=== PATIENT | male | born 1930 | race Caucasian/White ===

== ENCOUNTER 2017-07-29 17:22 | Inpatient (IN) | payer OTHER ==
--- NOTE | 2017-07-29 17:49 | PDOC ---
History of Present Illness - General Chief Complaint: Weakness Stated Complaint: FATIGUE Time Seen by Provider: 07/29/17 17:48 - History of Present Illness Initial Comments: 07/29/17 17:54 Mr. Real is an 87 yo male w/ pmh of HTN, DM, HLD, and diastolic CHF who presents w/ 1-2 days of shortness of breath with cough and runny nose. Patient is also complaining of abdominal pain over this same time period and chronic back pain. The patient denies headache and dizziness. Denies fever, chills, nausea, vomit, diarrhea and constipation. Denies dysuria, frequency, urgency and hematuria. Allergies: NKDA Past History - Past Medical History Allergies/Adverse Reactions: Allergies Allergy/AdvReac Type Severity Reaction Status Date / Time No Known Allergies Allergy Verified 07/29/17 17:33 Home Medications: Ambulatory Orders Glipizide/Metformin HCl [Glipizide-Metformin 5-500 mg] 2 each PO BIDAC 09/06/15 Nortriptyline HCl 50 mg PO HS 09/06/15 Omeprazole [Prilosec] 40 mg PO DAILY 09/06/15 Pregabalin [Lyrica -] 75 mg PO TID 09/06/15 Sitagliptin Phosphate [Januvia] 100 mg PO AM 09/06/15 Chlorthalidone 50 mg PO DAILY 07/29/17 Donepezil HCl [Aricept] 10 mg PO DAILY 07/29/17 COPD: No Diabetes: Yes HTN: Yes Hypercholesterolemia: Yes - Immunization History Immunization Up to Date: Yes - Suicide/Smoking/Psychosocial Hx Smoking History: Former smoker Have you smoked in the past 12 months: No If you are a former smoker, when did you quit?: over 20 years ago Information on smoking cessation initiated: No Hx Alcohol Use: No Drug/Substance Use Hx: No Substance Use Type: None Hx Substance Use Treatment: No Review of Systems - Review of Systems Comments:: 07/29/17 17:57 GENERAL/CONSTITUTIONAL: No fever or chills. No weakness. HEAD, EYES, EARS, NOSE AND THROAT: No change in vision. No ear pain or discharge. No sore throat. CARDIOVASCULAR: +Dyspnea on exertion as described. No chest pain RESPIRATORY: No cough, wheezing, or hemoptysis. GASTROINTESTINAL: +Abdominal pain starting in left upper quadrant over the last 1-2 days. No nausea, vomiting, diarrhea or constipation. GENITOURINARY: No dysuria, frequency, or change in urination. MUSCULOSKELETAL: No joint or muscle swelling or pain. No neck or back pain. SKIN: No rash NEUROLOGIC: No headache, vertigo, loss of consciousness, or change in strength/ sensation. ENDOCRINE: No increased thirst. No abnormal weight change HEMATOLOGIC/LYMPHATIC: No anemia, easy bleeding, or history of blood clots. ALLERGIC/IMMUNOLOGIC: No hives or skin allergy. *Physical Exam - Vital Signs Last Vital Signs Temp Pulse Resp BP Pulse Ox 107 H 19 152/89 98 07/29/17 17:33 07/29/17 17:33 07/29/17 17:33 07/29/17 17:33 - Physical Exam Comments: 07/29/17 17:58 GENERAL: Awake, alert, and fully oriented, in no acute distress HEAD: No signs of trauma, normocephalic, atraumatic EYES: PERRLA, EOMI, sclera anicteric, conjunctiva clear ENT: Auricles normal inspection, hearing grossly normal, nares patent, oropharynx clear without exudates. Moist mucosa NECK: Normal ROM, supple, no lymphadenopathy, JVD, or masses LUNGS: No distress, speaks full sentences, clear to auscultation bilaterally HEART: Regular rate and rhythm, normal S1 and S2, no murmurs, rubs or gallops, peripheral pulses normal and equal bilaterally. ABDOMEN: Soft, nontender, normoactive bowel sounds. No guarding, no rebound. No masses EXTREMITIES: 1+ Pedal edema noted bilaterally. Normal inspection, Normal range of motion, no edema. No clubbing or cyanosis. NEUROLOGICAL: Cranial nerves II through XII grossly intact. Normal speech, normal gait, no focal sensorimotor deficits SKIN: Warm, Dry, normal turgor, no rashes or lesions noted. ED Treatment Course - LABORATORY CBC & Chemistry Diagram: 07/29/17 18:20 07/29/17 18:20 Medical Decision Making - Medical Decision Making 07/29/17 20:37 Mr. Real is an 87 yo male w/ pmh as described who presents w/ increasing shortness of breath with pedal edema. CBC/CMP/cardiac panel/ekg/CXR sent for evaluation. 07/29/17 20:43 Patient noted to have elevated troponin on labs as below. CXR appears congested. BNP sent for further evaluation and found to be elevated as shown. Suspect etiology of patient's symptoms due to fluid overload. Paging inpatient team for overnight observation with morning cardiology consult. 07/29/17 21:[address] Sullivan of inpatient team who agrees with overnight admission for observation and cardiology follow-up. *DC/Admit/Observation/Transfer Diagnosis at time of Disposition: CHF (congestive heart failure) Qualifiers: Heart failure type: unspecified Heart failure chronicity: unspecified Qualified Code(s): I50.9 - Heart failure, unspecified Fluid overload Qualifiers: Hypervolemia type: unspecified Qualified Code(s): E87.70 - Fluid overload, unspecified - Discharge Dispostion Admit: Yes - Referrals Referrals: Kayla Rothman MD [Primary Care Provider] - - Patient Instructions - Post Discharge Activity
--- NOTE | 2017-07-29 18:14 | PDOC ---
Attending Attestation - ED Attending Attestation I have performed the following: I have examined & evaluated the patient, The case was reviewed & discussed with the resident, I agree w/resident's findings & plan, Exceptions are as noted - HPI HPI: 07/29/17 18:14 Mr Real is an 87 yo M h/o HTN, DM, HLD, diastolic CHF presenting to the ER with a complaint of shortness of breath Per family member, the patient was short of breath x 4 days No fevers, no cough, no URI symptoms Pt noted to have mild lower extremity edema Unsure if this patient has orthopnea His exercise tolerance is limited a few minutes of walking Most recent travel in April to [place] Pt has not had chest pain When he is very short of breath, he gets left abdominal pain which radiates up his chest 07/29/17 20:24 07/29/17 20:30 - Physicial Exam PE: 07/29/17 20:29 On examination Pt is seated in stretcher No tachypnea, no cyanosis, speaking in complete sentences RRR CTA bilaterally abdomen protruberant, non tender to palpation 1+ pitting edema bilaterally - Medical Decision Making 07/29/17 20:30 87 yo M with DM, HTN, HLD, CHF presenting to the ER with shortness of breath No fevers or cough to suggest pneumonia No wheezing, h/o COPD Pt has mild lower extremity edema Possibly CHF 07/29/17 20:31 07/29/17 20:32 Laboratory Tests 07/29/17 07/29/17 07/29/17 18:20 18:20 19:45 WBC 7.1 D Hgb 11.3 L Hct 35.0 L Plt Count 198 BUN 28 H D Creatinine 1.4 H AST 85 H D ALT 79 H D Alkaline Phosphatase 164 H D Creatine Kinase 201 Creatine Kinase Index 2.8 CK-MB (CK-2) 5.641 H Troponin I 0.06 H D B-Natriuretic Peptide 97938.17 H BNP elevated Unclear cause of pt mild transaminitis Trop indeterminant range No anemia Will place on observation to hospitalist will give Lasix for fluid overloading Clinical impression: CHF, initial presentation
[2017-07-29 18:32] LABS: BASO % 0.9 % (0-2.0); EOS % 1.5 % (0-4.5); HEMOGLOBIN 11.3 GM/dL (11.7-16.9); LYMPH % 13.4 % (8-40); MCH 27.8 pg (25.7-33.7); MCHC 32.3 g/dl (32.0-35.9); MEAN CELL VOLUME 86.3 fl (80-96); MEAN PLT VOLUME 9.1 fl (7.5-11.1); MONO % 12.6 % (3.8-10.2); NEUT % 71.6 % (42.8-82.8); PLATELET COUNT 198 K/MM3 (134-434); RBC 4.06 M/mm3 (4.00-5.60); RDW 16.3 % (11.9-15.9); WHITE BLOOD COUNT 7.1 K/mm3 (4.0-10.0)
[2017-07-29 19:26] LABS: ALBUMIN 3.7 g/dl (3.4-5.0); ANION GAP 14 (8-16); BILIRUBIN,TOTAL 0.9 mg/dL (0.2-1.0); BLOOD UREA NITROGEN 28 mg/dL (7-18); CALCIUM 8.9 mg/dL (8.5-10.1); CHLORIDE 105 mmol/L (98-107); CO2 22 mmol/L (21-32); CREATININE 1.4 mg/dL (0.7-1.3); GLUCOSE,RANDOM 171 mg/dL (74-106); POTASSIUM 4.6 mmol/L (3.5-5.1); SGOT/AST 85 U/L (15-37); SGPT/ALT 79 U/L (12-78); SODIUM 141 mmol/L (136-145); TOT PROT 7.3 g/dl (6.4-8.2)
[2017-07-29 19:28] LABS: ALK PHOS 164 U/L (45-117)
[2017-07-29] MEDS ORDERED: LISINOPRIL 20 MG TABLET (FP) PO ONE (20:30)
[2017-07-29] MEDS ORDERED: LISINOPRIL 20 MG TABLET (FP) ONE (20:40)
[2017-07-29] MEDS ORDERED: FUROSEMIDE 40 MG TABLET (FP) PO ONE (20:42)
[2017-07-29] MEDS ORDERED: FUROSEMIDE 40 MG TABLET (FP) ONE (20:45)
[2017-07-29] MEDS ORDERED: ACETAMINOPHEN 325 MG TABLET (FP) PO PRN (21:55)
[2017-07-29] MEDS ORDERED: NORTRIPTYLINE HCL 25 MG CAPSULE PO SCH (22:00)
--- NOTE | 2017-07-29 22:18 | HP ---
CHIEF COMPLAINT: SOB PCP: Higinio HISTORY OF PRESENT ILLNESS: 87M w/ hx of diastolic CHF, HTN, NIDDM, and HLD who presents with several days of SOB. Pt reports that he was in his USOH until several days ago when his SOB began. It is associated with increased PRUITT, PND, worsening b/l LE edema, but no orthopnea. Pt endorses preceding rhinorrhea, unproductive cough, and chills, but denies fevers, headache, chest pain, abdominal pain, n/v/d/c, dysuria, myalgias, and sick contacts. Pt travelled to in April. He reports medication compliance, and his helps him with his medications. At baseline, pt ambulates with walker and cane. He can only walk 10-20 feet before becoming SOB. ER course was notable for: (1) elevated LFTs (2) elevated BNP (3) bibasilar rales Recent Travel: in april PAST MEDICAL HISTORY: diastolic CHF, HTN, NIDDM, and HLD PAST SURGICAL HISTORY: denies Social History: Smoking: former, quit 25 ya Alcohol: denies Drugs: denies Family History: Allergies No Known Allergies Allergy (Verified 07/29/17 17:33) HOME MEDICATIONS: Home Medications Medication Instructions Recorded Glipizide/Metformin HCl 2 each PO BIDAC 09/06/15 [Glipizide-Metformin 5-500 mg] Nortriptyline HCl 50 mg PO HS 09/06/15 Omeprazole [Prilosec] 40 mg PO DAILY 09/06/15 Pregabalin [Lyrica -] 75 mg PO TID 09/06/15 Sitagliptin Phosphate [Januvia] 100 mg PO AM 09/06/15 Chlorthalidone 50 mg PO DAILY 07/29/17 Donepezil HCl [Aricept] 10 mg PO DAILY 07/29/17 REVIEW OF SYSTEMS CONSTITUTIONAL: Absent: fever, diaphoresis, generalized weakness, malaise, loss of appetite, weight change present: chills HEENT: Absent: nasal congestion, throat pain, throat swelling, difficulty swallowing, mouth swelling, ear pain, eye pain, visual changes present: rhinorrhea CARDIOVASCULAR: Absent: chest pain, syncope, palpitations, irregular heart rate, lightheadedness present: peripheral edema RESPIRATORY: Absent: wheezing, stridor, hemoptysis present: cough, SOB, PRUITT GASTROINTESTINAL: Absent: abdominal pain, abdominal distension, nausea, vomiting, diarrhea, constipation, melena, hematochezia GENITOURINARY: Absent: dysuria, frequency, urgency, hesitancy, hematuria, flank pain, genital pain MUSCULOSKELETAL: Absent: myalgia, arthralgia, joint swelling, neck pain present: back pain chronic SKIN: Absent: rash, itching, pallor HEMATOLOGIC/IMMUNOLOGIC: Absent: easy bleeding, easy bruising, lymphadenopathy, frequent infections ENDOCRINE: Absent: unexplained weight gain, unexplained weight loss, heat intolerance, cold intolerance NEUROLOGIC: Absent: headache, focal weakness or paresthesias, dizziness, unsteady gait, seizure, mental status changes, bladder or bowel incontinence PSYCHIATRIC: Absent: anxiety, depression, suicidal or homicidal ideation, hallucinations. PHYSICAL EXAMINATION Vital Signs - 24 hr 07/29/17 07/29/17 17:33 20:22 Temperature 98.9 F Pulse Rate 107 H Pulse Rate [ 112 H Radial] Respiratory 19 19 Rate Blood Pressure 152/89 Blood Pressure 148/90 [Arm] O2 Sat by Pulse 98 99 Oximetry (%) GENERAL: elderly male, awake, alert, and fully oriented, in no acute distress. HEENT: NC, AT LUNGS: bibasilar rales, no rhonchi or wheezing HEART: Regular rate and rhythm, normal S1 and S2 without murmur, rub or gallop. ABDOMEN: soft, NT, ND MUSCULOSKELETAL: b/l 2+ pitting edema to knees NEUROLOGICAL: Cranial nerves II-XII intact. Normal speech. Laboratory Results - last 24 hr 07/29/17 07/29/17 07/29/17 18:20 18:20 19:45 WBC 7.1 D RBC 4.06 Hgb 11.3 L Hct 35.0 L MCV 86.3 MCH 27.8 MCHC 32.3 RDW 16.3 H Plt Count 198 MPV 9.1 Neutrophils % 71.6 Lymphocytes % 13.4 Monocytes % 12.6 H Eosinophils % 1.5 Basophils % 0.9 Sodium 141 Potassium 4.6 Chloride 105 Carbon Dioxide 22 Anion Gap 14 BUN 28 H D Creatinine 1.4 H Creat Clearance w eGFR 47.72 Random Glucose 171 H D Calcium 8.9 Total Bilirubin 0.9 D AST 85 H D ALT 79 H D Alkaline Phosphatase 164 H D Creatine Kinase 201 Creatine Kinase Index 2.8 CK-MB (CK-2) 5.641 H Troponin I 0.06 H D B-Natriuretic Peptide 78563.17 H Total Protein 7.3 Albumin 3.7 ASSESSMENT/PLAN: 87M w/ hx of diastolic CHF, HTN, NIDDM, and HLD who presents with acute SOB. #SOB -likely 2/2 acute CHF exacerbation possibly triggered by viral URI. 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 CKD -f/u repeat trops #HTN -continue chlorthalidone #HLD -reconcile meds alesia #DM -hold home oral hypoglycemics -ISS, BGM ACHS #dementia -continue donepezil #chronic back pain -APAP for pain #FEN/ppx -po fluids -electrolytes wnl -diabetic/sodium controlled diet -protonix -heparin 5000U TID Case discussed with attending. -Mason Vera MD PGY1 Visit type - Emergency Visit Emergency Visit: Yes ED Registration Date: 07/29/17 Care time: The patient presented to the Emergency Department on the above date and was hospitalized for further evaluation of their emergent condition. - New Patient This patient is new to me today: Yes Date on this admission: 07/29/17 - Critical Care Critical Care patient: No Hospitalist Screening - Colonoscopy Questionnaire Colonoscopy Questionnaire: Colonoscopy Questionnaire - Patient: 50 - 75 years old and never had a screening colonoscopy: Unknown History of colon or rectal polyps, or CA: Unknown History of IBD, Crohn's disease or UC: Unknown History of abdominal radiation therapy as a child: Unknown - Relative: 1 with colon or rectal CA, or polyps at age 60 or younger: Unknown Colon or rectal CA diagnosed at age 45 or younger: Unknown Multiple relatives with colon or rectal CA: Unknown - Outcome: Screening Result: Negative Screen
[2017-07-29] MEDS: PREGABALIN 75 MG CAPSULE PO SCH (23:26)
--- NOTE | 2017-07-29 23:28 | PN ---
Teaching Attending Note Name of Resident: Mason Vera ATTENDING PHYSICIAN STATEMENT I saw and evaluated the patient. I reviewed the resident's note and discussed the case with the resident. I agree with the resident's findings and plan as documented. SUBJECTIVE: 87M pmh HTN HLD diastolic HF, mod-severe AI, presents with worsening SOB and leg swelling for past 4 days, OBJECTIVE: bibasilar rales tachycardia nom/r/g Ext: 1+ edema BNP 13K trop 0.06 last ECHO 08/2015 nl EF mod-sev AI Nuclear stress 08/2015 negative CX pulm vasc congestion EKG sinus rhythm nonspecific twi ASSESSMENT AND PLAN: 87M presents with decompensated heart failure trend troponin to evaluate for ACS rpeat ECHO to eval changes in LV function or AI IV lasix 40q12 start ACEI initaite BB prior to discharge cardiology consult
[2017-07-30 01:51] VITALS: BMI 30.5
[2017-07-30] MEDS: PREGABALIN 75 MG CAPSULE PO SCH ×3 (05:54→23:04)
[2017-07-30] MEDS ORDERED: HEPARIN NA (PORCINE) 5,000 UNITS/ML 1ML VIAL SQ SCH (06:00)
[2017-07-30] MEDS ORDERED: FUROSEMIDE 40 MG/4 ML INJECTABLE VIAL IVPUSH SCH (06:00)
[2017-07-30] MEDS: INSULIN SLIDING SCALE (NOVOLOG) 1 VIAL SQ SCH ×5 (06:06→23:02)
[2017-07-30 08:17] LABS: BASO % 0.6 % (0-2.0); EOS % 0.5 % (0-4.5); HEMATOCRIT 33.7 % (35.4-49); LYMPH % 11.9 % (8-40); MCHC 32.6 g/dl (32.0-35.9); MEAN CELL VOLUME 85.9 fl (80-96); MEAN PLT VOLUME 9.2 fl (7.5-11.1); MONO % 11.1 % (3.8-10.2); NEUT % 75.9 % (42.8-82.8); PLATELET COUNT 186 K/MM3 (134-434); RBC 3.93 M/mm3 (4.00-5.60); RDW 16.1 % (11.9-15.9)
[2017-07-30 08:26] LABS: CREATININE 1.6 mg/dL (0.7-1.3)
[2017-07-30 08:57] LABS: ALBUMIN 3.5 g/dl (3.4-5.0); ANION GAP 19 (8-16); BILIRUBIN,TOTAL 1.5 mg/dL (0.2-1.0); BLOOD UREA NITROGEN 29 mg/dL (7-18); CALCIUM 9.7 mg/dL (8.5-10.1); CHLORIDE 100 mmol/L (98-107); CO2 21 mmol/L (21-32); GLUCOSE,RANDOM 182 mg/dL (74-106); MAGNESIUM 1.4 mg/dL (1.8-2.4); PHOSPHOROUS 4.7 mg/dL (2.5-4.9); POTASSIUM 4.3 mmol/L (3.5-5.1); SODIUM 140 mmol/L (136-145); TOT PROT 7.2 g/dl (6.4-8.2)
[2017-07-30 08:58] LABS: ALK PHOS 213 U/L (45-117)
[2017-07-30 08:59] LABS: SGOT/AST 526 U/L (15-37); SGPT/ALT 473 U/L (12-78)
[2017-07-30] MEDS ORDERED: FUROSEMIDE 40 MG TABLET (FP) PO SCH (10:00)
[2017-07-30] MEDS ORDERED: PANTOPRAZOLE 40 MG TABLET (FP) PO SCH (10:00)
[2017-07-30] MEDS ORDERED: CHLORTHALIDONE 50 MG TABLET PO SCH (10:00)
[2017-07-30] MEDS ORDERED: DONEPEZIL HCL 10 MG TABLET (FP) PO SCH (10:00)
[2017-07-30 10:54] LABS: INR 1.74 (0.82-1.09); PROTHROMBIN TIME (PATIENT) 19.7 SEC (9.98-11.88)
[2017-07-30] MEDS ORDERED: hydrALAZINE HCL 20 MG/ML VIAL IVPUSH PRN (13:04)
[2017-07-30] MEDS ORDERED: MAGNESIUM SULF 50% (8.12 MEQ/2 ML-1 GM VIAL) IVPB ONE (13:34)
--- NOTE | 2017-07-30 13:41 | CON.CARD ---
Consult Consult Specialty:: Cardiology Referred by:: Hospitalist Reason for Consultation:: SOB - History of Present Illness Chief Complaint: SOB History of Present Illness: 87 year old man with a history of HTN, HLD, DMII, AR, CKD, Chronic diastolic CHF , admitted here 2016 with sob and diastolic CHF, stress test at that time showed no ischemia, admitted now for progressively worsening sob, edema. Pt seen and examined today in nad. states that for the past few days he has had progressivley worsening sob, also notes b/l LE edema. denies chest pain. - History Source History Provided By: Patient, Family Member Limitations to Obtaining History: Language Barrier - Past Medical History Cardio/Vascular: Yes: Aortic Insufficiency, CHF, HTN, Hyperlipdemia Endocrine: Yes: Diabetes Mellitus - Alcohol/Substance Use Hx Alcohol Use: No - Smoking History Smoking history: Former smoker Have you smoked in the past 12 months: No If you are a former smoker, when did you quit?: over 20 years ago - Social History Usual Living Arrangement: With Spouse ADL: Family Assistance History of Recent Travel: No Home Medications - Allergies Allergies/Adverse Reactions: Allergies Allergy/AdvReac Type Severity Reaction Status Date / Time No Known Allergies Allergy Verified 07/29/17 17:33 - Home Medications Home Medications: Ambulatory Orders Glipizide/Metformin HCl [Glipizide-Metformin 5-500 mg] 2 each PO BIDAC 09/06/15 Nortriptyline HCl 50 mg PO HS 09/06/15 Omeprazole [Prilosec] 40 mg PO DAILY 09/06/15 Pregabalin [Lyrica -] 75 mg PO TID 09/06/15 Sitagliptin Phosphate [Januvia] 100 mg PO AM 09/06/15 Chlorthalidone 50 mg PO DAILY 07/29/17 Donepezil HCl [Aricept] 10 mg PO DAILY 07/29/17 Family Disease History - Family Disease History Family History: Denies Review of Systems - Review of Systems Constitutional: reports: Weakness. denies: No Symptoms, Chills, Diaphoresis, Fever, Lethargy, Loss of Appetite, Malaise, Night Sweats, Unintentional Wgt. Loss, Other Eyes: denies: No Symptoms, Blind Spots, Blurred Vision, Double Vision, Eye Pain , Floaters, Photophobia, Recent Change in Vision, Other HENT: denies: No Symptoms, Difficult Swallowing, Ear Discharge, Ear Pain, Epistaxis, Gingival Bleeding, Hearing Loss, Mouth Swelling, Nasal Congestion, Ocular Prosthesis, Throat Pain, Toothache, Ringing in Ears, Other Neck: denies: No Symptoms, Decreased ROM, Lumps, Pain on Movement, Stiffness, Swollen Glands, Tenderness, Other Cardiovascular: reports: Edema, Shortness of Breath. denies: No Symptoms, Chest Pain, Palpitations, Other Respiratory: reports: Exercise Intolerance, Orthopnea, SOB, SOB on Exertion. denies: No Symptoms, Cough, Hemoptysis, PND, Snoring, Wheezing, Other Gastrointestinal: denies: No Symptoms, Abdominal Pain, Bloating, Constipation, Diarrhea, Dysphagia, Indigestion, Melena, Nausea, Rectal Bleeding, Vomiting, Vomiting Blood, Other Genitourinary: denies: No Symptoms, Burning, Discharge, Dysuria, Flank Pain, Frequency, Hematuria, Incontinence, Lesions, Menses, Pain, Testicular Mass, Testicular Pain, Testicular Swelling, Urgency, Vaginal Bleeding, Other Breasts: denies: No Symptoms Reported, See HPI, Breast Implants, Discharge from Nipple, Lumps, Pain, Skin Changes, Other Musculoskeletal: denies: No Symptoms, Back Pain, Crepitus, Decreased ROM, Extremity Pain, Joint Pain, Joint Swelling, Muscle Pain, Muscle Cramps, Muscle Weakness, Other Integumentary: denies: No Symptoms, Blister, Bruising, Change in Color, Eczema, Erythema, Incision, Lesions, Lump, Pallor, Pruritis, Rash, Wound, Other Neurological: denies: No Symptoms, Change in LOC, Change in Speech, Confusion, Dizziness, Headache, Incoordination, Numbness, Parasthesia, Pre-Existing Deficit , Seizure, Syncope, Tremors, Unsteady Gait, Weakness, Other Endocrine: denies: No Symptoms, Excessive Sweating, Flushing, Increased Hunger, Increased Thirst, Intolerance to Cold, Intolerance to Heat, Unexplained Weight Gain, Unexplained Weight Loss, Other Hematology/Lymphatic: denies: No Symptoms, Easily Bruised, Excessive Bleeding, Swollen Glands, Other Psychiatric: denies: No Symptoms, Altered Sleep Pattern, Anxiety, Depression, Hallucinations, Panic, Paranoia, Suicidal, Other - Risk Factors Known Risk Factors: Yes: Age, Diabetes Mellitus, Hypercholesterolemia, Hypertension Vital Signs: Vital Signs Temperature 98.9 F 07/30/17 09:00 Pulse Rate 119 H 07/30/17 09:00 Respiratory Rate 21 07/30/17 10:50 Blood Pressure 174/95 07/30/17 09:00 O2 Sat by Pulse Oximetry (%) 98 07/30/17 10:50 Constitutional: Yes: Well Nourished, No Distress, Calm Eyes: Yes: WNL, Conjunctiva Clear, EOM Intact, PERRL HENT: Yes: WNL, Atraumatic, Normocephalic Neck: Yes: WNL, Supple, Trachea Midline Respiratory: Yes: Regular, Diminished, Rales. No: Rhonchi, SOB, Wheezes Gastrointestinal: Yes: WNL, Normal Bowel Sounds, Soft. No: Distention, Tenderness Renal/: Yes: WNL Cardiovascular: Yes: Regular Rate and Rhythm. No: Bradycardia, Tachycardia, Pulse Irregular, Gallop, Rub, Varicosities JVD: No Carotid Bruit: No PMI: Non-Displaced Heart Sounds: Yes: S1, S2. No: Split S2, S3, S4, Clicks, Gallop, Rub, Bruit Murmur: Yes: Systolic Murmur Musculoskeletal: Yes: Muscle Weakness Extremities: Yes: WNL Edema: Yes Edema: LLE: 1+, RLE: 1+ Peripheral Pulses WNL: Yes Peripheral Pulses: 2+ Left Doralis Pedis, 2+ Right Dorsalis Pedis Integumentary: Yes: WNL Neurological: Yes: Alert, Oriented Psychiatric: Yes: Alert, Oriented - Other Data Labs, Other Data: CBC, BMP 07/30/17 06:35 07/30/17 06:35 INR, PTT INR 1.74 (0.82-1.09) H D 07/30/17 07:11 Troponin, BNP 07/29/17 07/29/17 07/30/17 18:20 19:45 02:28 Troponin I 0.06 H D 0.11 H D B-Natriuretic Peptide 72127.17 H 07/30/17 07/30/17 06:35 06:35 Troponin I 0.10 H Cancelled B-Natriuretic Peptide Troponin, BNP 07/29/17 07/29/17 07/30/17 18:20 19:45 02:28 Troponin I 0.06 H D 0.11 H D B-Natriuretic Peptide 43256.17 H 07/30/17 07/30/17 06:35 06:35 Troponin I 0.10 H Cancelled B-Natriuretic Peptide ekg not in paper chart Echo: Report Reviewed Imaging - Results Chest X-ray: Report Reviewed, Image Reviewed EKG: Report Reviewed, Image Reviewed Other: Report Reviewed, Image Reviewed Assessment/Plan 87 year old man with a history of HTN, HLD, DMII, AR, CKD, Chronic diastolic CHF , admitted here 2016 with sob and diastolic CHF, stress test at that time showed no ischemia, admitted now for progressively worsening sob, edema. Pt seen and examined today in nad. states that for the past few days he has had progressivley worsening sob, also notes b/l LE edema. denies chest pain. SOB-pulmonary edema, pleural effusion, peripheral edema -acute on chronic diastolic CHF with AR -cont IV Lasix at current dose -monitor strict I/Os and daily weights -monitor bun/creat, electrolytes and replete as needed -pt being transferred to telemetry -repeat echo to reevaluate structural heart disease including including AR severity and LV function Prior work up: 09/08/2015 P-Myoview: No ischemia, LVEF 42% 09/08/2015 Echocardiogram showed normal LV systolic function, mild MR and TR, moderate to severe AR
[2017-07-30] MEDS: CARVEDILOL 6.25 MG TABLET (FP) PO SCH ×2 (13:48→23:04)
[2017-07-30] MEDS: FUROSEMIDE 40 MG/4 ML INJECTABLE VIAL IVPUSH SCH (13:49)
[2017-07-30] MEDS: HEPARIN NA (PORCINE) 5,000 UNITS/ML 1ML VIAL SQ SCH ×2 (13:49→23:04)
--- NOTE | 2017-07-30 13:56 | PN ---
Teaching Attending Note Name of Resident: Stephan Hannah ATTENDING PHYSICIAN STATEMENT Time of evaluation: 8:20 AM I saw and evaluated the patient. I reviewed the resident's note and discussed the case with the resident. I agree with the resident's findings and plan as documented. SUBJECTIVE: patient seen and examined, still with dyspnea, no chest pain, palpitations, abdominal pain, nausea or vomiting. Tolerating diet well otherwise. OBJECTIVE: Vital Signs Period Temp Pulse Resp BP Sys/Be Pulse Ox Last 24 Hr 97.5 F-98.9 F 98-119 19-21 136-174/79-95 98-99 Intake & Output 07/27/17 07/28/17 07/29/17 07/30/17 23:59 23:59 23:59 23:59 Intake Total 400 Output Total 900 Balance -500 Weight 170 lb 178 lb General: sitting chair, mild tachypnea, mild of use of acessory muscles of respiration Neck: neck vein distension, positive JVD Abdomen: soft, NT throughout, neg Medley's sign, obese, positive bowel sounds extremities: 1+ pedal edema CVS;S1S2 regular rapid Home Medication List Medication Instructions Recorded Confirmed Type Glipizide/Metformin HCl 2 each PO BIDAC 09/06/15 07/29/17 History [Glipizide-Metformin 5-500 mg] Nortriptyline HCl 50 mg PO HS 09/06/15 07/29/17 History Omeprazole [Prilosec] 40 mg PO DAILY 09/06/15 07/29/17 History Pregabalin [Lyrica -] 75 mg PO TID 09/06/15 07/29/17 History Sitagliptin Phosphate [Januvia] 100 mg PO AM 09/06/15 07/29/17 History Chlorthalidone 50 mg PO DAILY 07/29/17 07/29/17 History Donepezil HCl [Aricept] 10 mg PO DAILY 07/29/17 07/29/17 History Active Medications Generic Name Dose Route Start Last Admin Trade Name Freq PRN Reason Stop Dose Admin Carvedilol 6.25 mg 07/30/17 13:45 07/30/17 13:48 Coreg - PO 6.25 mg BID JOANNA Administration Donepezil HCl 10 mg 07/31/17 10:00 Aricept - PO DAILY JOANNA Furosemide 40 mg 07/30/17 14:00 07/30/17 13:49 Lasix Injection - IVPUSH 40 mg BID@0600,1400 JOANNA Administration Heparin Sodium (Porcine) 5,000 unit 07/30/17 14:00 07/30/17 13:49 Heparin - SQ 5,000 unit TID JOANNA Administration Hydralazine HCl 10 mg 07/30/17 13:04 Apresoline Injection - IVPUSH Q6H PRN HYPERTENSION MAGNESIUM SULFATE IN WATER 2 gm in 50 mls @ 50 mls/hr 07/30/17 14:00 Magnesium Sulf 2 G/50 Ml Bag IVPB 07/30/17 14:59 ONCE ONE Insulin Aspart 1 vial 07/30/17 16:30 Novolog Vial Sliding Scale - SQ ACHS [facility] Protocol Nortriptyline HCl 50 mg 07/30/17 22:00 Pamelor - PO HS JOANNA Pantoprazole Sodium 40 mg 07/31/17 10:00 Protonix - PO DAILY JOANNA Pregabalin 75 mg 07/30/17 14:00 07/30/17 13:48 Lyrica - PO 75 mg TID JOANNA Administration Laboratory Results - last 24 hr 07/29/17 07/29/17 07/29/17 18:20 18:20 19:45 WBC 7.1 D RBC 4.06 Hgb 11.3 L Hct 35.0 L MCV 86.3 MCH 27.8 MCHC 32.3 RDW 16.3 H Plt Count 198 MPV 9.1 Neutrophils % 71.6 Lymphocytes % 13.4 Monocytes % 12.6 H Eosinophils % 1.5 Basophils % 0.9 PT with INR INR Sodium 141 Potassium 4.6 Chloride 105 Carbon Dioxide 22 Anion Gap 14 BUN 28 H D Creatinine 1.4 H Creat Clearance w eGFR 47.72 POC Glucometer Random Glucose 171 H D Calcium 8.9 Phosphorus Magnesium Total Bilirubin 0.9 D AST 85 H D ALT 79 H D Alkaline Phosphatase 164 H D Creatine Kinase 201 Creatine Kinase Index 2.8 CK-MB (CK-2) 5.641 H Troponin I 0.06 H D B-Natriuretic Peptide 74898.17 H Total Protein 7.3 Albumin 3.7 07/30/17 07/30/17 07/30/17 02:28 06:01 06:35 WBC 7.0 RBC 3.93 L Hgb 11.0 L Hct 33.7 L MCV 85.9 MCH 28.0 MCHC 32.6 RDW 16.1 H Plt Count 186 MPV 9.2 Neutrophils % 75.9 Lymphocytes % 11.9 Monocytes % 11.1 H Eosinophils % 0.5 Basophils % 0.6 PT with INR INR Sodium Potassium Chloride Carbon Dioxide Anion Gap BUN Creatinine Creat Clearance w eGFR POC Glucometer 178 Random Glucose Calcium Phosphorus Magnesium Total Bilirubin AST ALT Alkaline Phosphatase Creatine Kinase Creatine Kinase Index CK-MB (CK-2) Troponin I 0.11 H D B-Natriuretic Peptide Total Protein Albumin 07/30/17 07/30/17 07/30/17 06:35 06:35 07:11 WBC RBC Hgb Hct MCV MCH MCHC RDW Plt Count MPV Neutrophils % Lymphocytes % Monocytes % Eosinophils % Basophils % PT with INR 19.70 H INR 1.74 H D Sodium 140 Potassium 4.3 Chloride 100 Carbon Dioxide 21 Anion Gap 19 H BUN 29 H Creatinine 1.6 H Creat Clearance w eGFR 40.90 POC Glucometer Random Glucose 182 H Calcium 9.7 Phosphorus 4.7 D Magnesium 1.4 L D Total Bilirubin 1.5 H D AST 526 H D ALT 473 H D Alkaline Phosphatase 213 H D Creatine Kinase Creatine Kinase Index CK-MB (CK-2) Troponin I 0.10 H Cancelled B-Natriuretic Peptide Total Protein 7.2 Albumin 3.5 07/30/17 11:40 WBC RBC Hgb Hct MCV MCH MCHC RDW Plt Count MPV Neutrophils % Lymphocytes % Monocytes % Eosinophils % Basophils % PT with INR INR Sodium Potassium Chloride Carbon Dioxide Anion Gap BUN Creatinine Creat Clearance w eGFR POC Glucometer 265 Random Glucose Calcium Phosphorus Magnesium Total Bilirubin AST ALT Alkaline Phosphatase Creatine Kinase Creatine Kinase Index CK-MB (CK-2) Troponin I B-Natriuretic Peptide Total Protein Albumin ASSESSMENT AND PLAN: 87 yom with PMHx of diastolic HF, HTN, NIDDM, admitted with dyspnea and abnormal LFTs -Acute diastolic Heart failure exacerbation -Abnormal LFTs, suspect passive hepatic congestion, r/o alterntive etiology -ARJUN, suspect from CHF, r/o retention -Severe Aortic regurgitation -Uncontrolled HTN -NIDDM Plan: Lasix 40 mg IV BID, strict I/Os, daily weights. Repeat 2D echo. Cardiology input appreciated. Trend LFTs, check liver ultrasound, GI consult. Hep panel however unlikely to explain acute rise. Monitor renal function closely on diuresis. Bladder scan x 1 to r/o retention. Renal ultrasound. Renal dosing of meds. BP control, hydralazine prn. Last d/c summary patient on coreg and losartan. [facility] closed currently, daughter called, to attempt to get home meds. Will resume coreg in the interim. Hold ARB given ARJUN. Hold oral hypoglycemics, ISS, diabetic diet. Concerns for non compliance on prior admission, could explain CHF exac and uncontrolled BP. DVTPPx with heparin. transfer to telemetry. Dispo in 2-3 days if improves. Will need PT eval prior to d.c plan discussed with patient.
[2017-07-30] MEDS ORDERED: MAGNESIUM SULFATE IN WATER 2 GM/50 ML IVPB IVPB ONE (14:00)
--- NOTE | 2017-07-30 14:23 | EKG ---
Test Reason : Blood Pressure : / mmHG Vent. Rate : 103 BPM Atrial Rate : 103 BPM P-R Int : 186 ms QRS Dur : 118 ms QT Int : 384 ms P-R-T Axes : 074 -44 114 degrees QTc Int : 503 ms SINUS TACHYCARDIA LEFT AXIS DEVIATION LEFT VENTRICULAR HYPERTROPHY WITH QRS WIDENING AND REPOLARIZATION ABNORMALITY ABNORMAL ECG Confirmed by MD DAVID, ES ([id number]) on 07/30/2017 2:23:35 PM Referred By: Confirmed By:ES HERNANDEZ MD
--- NOTE | 2017-07-30 16:27 | CON.GI ---
Consult Consult Specialty:: GI Reason for Consultation:: abnormal liver enzymes - History of Present Illness History of Present Illness: chart reviewed. 87 year old man with a history of HTN, HLD, DMII, AR, CKD, Chronic diastolic CHF , admitted for for CHF exaserbation. Family at bedside. Pt reports no viral hepatitis risk factors. No history of chronci acohol, NSAID, herbal remedies. No jaundice, chronic low grade fever, change in stool, or urine color. NO family history of autoimmune diseases. No new medications, or exposure to ill Per records 2015 records had mild AST, ALT elevation. 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, HCV negative - History Source History Provided By: Patient, Family Member, Medical Record - Past Medical History Cardio/Vascular: Yes: Aortic Insufficiency, CHF, HTN, Hyperlipdemia Endocrine: Yes: Diabetes Mellitus - Alcohol/Substance Use Hx Alcohol Use: No - Smoking History Smoking history: Former smoker Have you smoked in the past 12 months: No If you are a former smoker, when did you quit?: over 20 years ago - Social History Usual Living Arrangement: With Spouse ADL: Family Assistance History of Recent Travel: No Home Medications - Allergies Allergies/Adverse Reactions: Allergies Allergy/AdvReac Type Severity Reaction Status Date / Time No Known Allergies Allergy Verified 07/29/17 17:33 - Home Medications Home Medications: Ambulatory Orders Glipizide/Metformin HCl [Glipizide-Metformin 5-500 mg] 2 each PO BIDAC 09/06/15 Nortriptyline HCl 50 mg PO HS 09/06/15 Omeprazole [Prilosec] 40 mg PO DAILY 09/06/15 Pregabalin [Lyrica -] 75 mg PO TID 09/06/15 Sitagliptin Phosphate [Januvia] 100 mg PO AM 09/06/15 Chlorthalidone 50 mg PO DAILY 07/29/17 Donepezil HCl [Aricept] 10 mg PO DAILY 07/29/17 Family Disease History - Family Disease History Family History: Unremarkable Review of Systems Findings/Remarks: as per HPI, H&P Physical Exam-GI Vital Signs: Vital Signs Temperature 98.9 F 07/30/17 14:02 Pulse Rate 108 H 07/30/17 14:02 Respiratory Rate 22 07/30/17 14:02 Blood Pressure 151/82 07/30/17 14:02 O2 Sat by Pulse Oximetry (%) 98 07/30/17 10:50 Constitutional: Yes: Mild Distress (SOB) Eyes: Yes: Conjunctiva Clear. No: Sclera Icterus HENT: Yes: Atraumatic Neck: Yes: Supple Cardiovascular: Yes: Regular Rate and Rhythm Respiratory: Yes: Regular Edema: Yes Edema: LLE: 2+, RLE: 2+ Neurological: Yes: Alert Labs: CBC, BMP 07/30/17 06:35 07/30/17 06:35 INR, PTT INR 1.74 (0.82-1.09) H D 07/30/17 07:11 Laboratory Tests 07/29/17 07/29/17 07/29/17 18:20 18:20 19:45 WBC 7.1 D RBC 4.06 Hgb 11.3 L Hct 35.0 L MCV 86.3 MCH 27.8 MCHC 32.3 RDW 16.3 H Plt Count 198 MPV 9.1 Neutrophils % 71.6 Lymphocytes % 13.4 Monocytes % 12.6 H Eosinophils % 1.5 Basophils % 0.9 PT with INR INR Sodium 141 Potassium 4.6 Chloride 105 Carbon Dioxide 22 Anion Gap 14 BUN 28 H D Creatinine 1.4 H Creat Clearance w eGFR 47.72 POC Glucometer Random Glucose 171 H D Calcium 8.9 Phosphorus Magnesium Total Bilirubin 0.9 D AST 85 H D ALT 79 H D Alkaline Phosphatase 164 H D Creatine Kinase 201 Creatine Kinase Index 2.8 CK-MB (CK-2) 5.641 H Troponin I 0.06 H D B-Natriuretic Peptide 55839.17 H Total Protein 7.3 Albumin 3.7 07/30/17 07/30/17 07/30/17 02:28 06:01 06:35 WBC 7.0 RBC 3.93 L Hgb 11.0 L Hct 33.7 L MCV 85.9 MCH 28.0 MCHC 32.6 RDW 16.1 H Plt Count 186 MPV 9.2 Neutrophils % 75.9 Lymphocytes % 11.9 Monocytes % 11.1 H Eosinophils % 0.5 Basophils % 0.6 PT with INR INR Sodium Potassium Chloride Carbon Dioxide Anion Gap BUN Creatinine Creat Clearance w eGFR POC Glucometer 178 Random Glucose Calcium Phosphorus Magnesium Total Bilirubin AST ALT Alkaline Phosphatase Creatine Kinase Creatine Kinase Index CK-MB (CK-2) Troponin I 0.11 H D B-Natriuretic Peptide Total Protein Albumin 07/30/17 07/30/17 07/30/17 06:35 06:35 07:11 WBC RBC Hgb Hct MCV MCH MCHC RDW Plt Count MPV Neutrophils % Lymphocytes % Monocytes % Eosinophils % Basophils % PT with INR 19.70 H INR 1.74 H D Sodium 140 Potassium 4.3 Chloride 100 Carbon Dioxide 21 Anion Gap 19 H BUN 29 H Creatinine 1.6 H Creat Clearance w eGFR 40.90 POC Glucometer Random Glucose 182 H Calcium 9.7 Phosphorus 4.7 D Magnesium 1.4 L D Total Bilirubin 1.5 H D AST 526 H D ALT 473 H D Alkaline Phosphatase 213 H D Creatine Kinase Creatine Kinase Index CK-MB (CK-2) Troponin I 0.10 H Cancelled B-Natriuretic Peptide Total Protein 7.2 Albumin 3.5 07/30/17 11:40 WBC RBC Hgb Hct MCV MCH MCHC RDW Plt Count MPV Neutrophils % Lymphocytes % Monocytes % Eosinophils % Basophils % PT with INR INR Sodium Potassium Chloride Carbon Dioxide Anion Gap BUN Creatinine Creat Clearance w eGFR POC Glucometer 265 Random Glucose Calcium Phosphorus Magnesium Total Bilirubin AST ALT Alkaline Phosphatase Creatine Kinase Creatine Kinase Index CK-MB (CK-2) Troponin I B-Natriuretic Peptide Total Protein Albumin Problem List - Problems (1) CHF (congestive heart failure) Code(s): I50.9 - HEART FAILURE, UNSPECIFIED Qualifiers: Heart failure type: unspecified Heart failure chronicity: unspecified Qualified Code(s): I50.9 - Heart failure, unspecified (2) Fluid overload Code(s): E87.70 - FLUID OVERLOAD, UNSPECIFIED Qualifiers: Hypervolemia type: unspecified Qualified Code(s): E87.70 - Fluid overload, unspecified (3) Acute CHF Code(s): I50.9 - HEART FAILURE, UNSPECIFIED (4) Anemia Code(s): D64.9 - ANEMIA, UNSPECIFIED Qualifiers: Anemia type: unspecified type Qualified Code(s): D64.9 - Anemia, unspecified (5) Diastolic heart failure Code(s): I50.30 - UNSPECIFIED DIASTOLIC (CONGESTIVE) HEART FAILURE Qualifiers: Heart failure chronicity: acute on chronic Qualified Code(s): I50.33 - Acute on chronic diastolic (congestive) heart failure Assessment/Plan Likely has congestive hepatopathy with metabolic syndrome component. R/o other common etiologies. Acute CHF management per primary team/cardiology Will asses for viral and autoimmune etiologies Daily liver chem, PT/INR
[2017-07-30] MEDS ORDERED: NORTRIPTYLINE HCL 25 MG CAPSULE PO SCH (22:00)
[2017-07-31] MEDS: INSULIN SLIDING SCALE (NOVOLOG) 1 VIAL SQ SCH ×4 (06:16→21:43)
[2017-07-31] MEDS: HEPARIN NA (PORCINE) 5,000 UNITS/ML 1ML VIAL SQ SCH (06:16)
[2017-07-31] MEDS: PREGABALIN 75 MG CAPSULE PO SCH ×2 (06:16→14:07)
[2017-07-31] MEDS: FUROSEMIDE 40 MG/4 ML INJECTABLE VIAL IVPUSH SCH ×2 (06:16→14:07)
[2017-07-31 06:36] LABS: BASO % 0.7 % (0-2.0); EOS % 1.3 % (0-4.5); HEMATOCRIT 31.9 % (35.4-49); HEMOGLOBIN 10.6 GM/dL (11.7-16.9); LYMPH % 10.9 % (8-40); MCH 28.2 pg (25.7-33.7); MCHC 33.4 g/dl (32.0-35.9); MEAN CELL VOLUME 84.3 fl (80-96); MEAN PLT VOLUME 8.9 fl (7.5-11.1); MONO % 10.5 % (3.8-10.2); NEUT % 76.6 % (42.8-82.8); PLATELET COUNT 167 K/MM3 (134-434); RBC 3.78 M/mm3 (4.00-5.60); RDW 16.2 % (11.9-15.9); WHITE BLOOD COUNT 5.8 K/mm3 (4.0-10.0)
[2017-07-31 06:53] LABS: INR 1.81 (0.82-1.09); PROTHROMBIN TIME (PATIENT) 20.5 SEC (9.98-11.88)
[2017-07-31 07:19] LABS: ALBUMIN 3.2 g/dl (3.4-5.0); ALK PHOS 207 U/L (45-117); ANION GAP 15 (8-16); BILIRUBIN,DIRECT 0.6 mg/dL (0.0-0.2); BILIRUBIN,TOTAL 1.2 mg/dL (0.2-1.0); BLOOD UREA NITROGEN 35 mg/dL (7-18); CALCIUM 8.9 mg/dL (8.5-10.1); CHLORIDE 99 mmol/L (98-107); CO2 26 mmol/L (21-32); CREATININE 1.8 mg/dL (0.7-1.3); GLUCOSE,RANDOM 170 mg/dL (74-106); MAGNESIUM 1.6 mg/dL (1.8-2.4); POTASSIUM 3.8 mmol/L (3.5-5.1); SODIUM 140 mmol/L (136-145); TOT PROT 6.5 g/dl (6.4-8.2)
[2017-07-31 07:24] LABS: SGOT/AST 838 U/L (15-37); SGPT/ALT 808 U/L (12-78)
--- NOTE | 2017-07-31 07:56 | PN ---
Teaching Attending Note Name of Resident: Mason Vera ATTENDING PHYSICIAN STATEMENT Time of evaluation: 9:50 AM I saw and evaluated the patient. I reviewed the resident's note and discussed the case with the resident. I agree with the resident's findings and plan as documented with exceptions mentioned below. SUBJECTIVE: Patient seen and examined. breathing improved, no nausea, vomiting, abdominal pain, or new complaints. Rolled cigars before and positive smoking history OBJECTIVE: Vital Signs Period Temp Pulse Resp BP Sys/Be Pulse Ox Last 24 Hr 98.1 F-98.9 F 81-119 20-22 109-174/53-95 95-98 Intake & Output 07/28/17 07/29/17 07/30/17 07/31/17 23:59 23:59 23:59 23:59 Intake Total 400 Output Total 1750 550 Balance -1350 -550 Weight 170 lb 178 lb 170 lb 6 oz General: lying in bed in no acute disterss Chest: bibasilar rales CVS: S1S2 regular Abdomen: soft, obese, NT throughout, positive bowel sounds, neg Medley's sign extremities: 2+pedal edema Neck: no JVD visualized Home Medication List Medication Instructions Recorded Confirmed Type Glipizide/Metformin HCl 2 each PO BIDAC 09/06/15 07/29/17 History [Glipizide-Metformin 5-500 mg] Nortriptyline HCl 50 mg PO HS 09/06/15 07/29/17 History Omeprazole [Prilosec] 40 mg PO DAILY 09/06/15 07/29/17 History Pregabalin [Lyrica -] 75 mg PO TID 09/06/15 07/29/17 History Sitagliptin Phosphate [Januvia] 100 mg PO AM 09/06/15 07/29/17 History Chlorthalidone 50 mg PO DAILY 07/29/17 07/29/17 History Donepezil HCl [Aricept] 10 mg PO DAILY 07/29/17 07/29/17 History Active Medications Generic Name Dose Route Start Last Admin Trade Name Freq PRN Reason Stop Dose Admin Carvedilol 6.25 mg 07/30/17 13:45 07/30/17 23:04 Coreg - PO 6.25 mg BID JOANNA Administration Donepezil HCl 10 mg 07/31/17 10:00 Aricept - PO DAILY JOANNA Furosemide 40 mg 07/30/17 14:00 07/31/17 06:16 Lasix Injection - IVPUSH 40 mg BID@0600,1400 JOANNA Administration Heparin Sodium (Porcine) 5,000 unit 07/30/17 14:00 07/31/17 06:16 Heparin - SQ 5,000 unit TID JOANNA Administration Hydralazine HCl 10 mg 07/30/17 13:04 Apresoline Injection - IVPUSH Q6H PRN HYPERTENSION Insulin Aspart 1 vial 07/30/17 16:30 07/31/17 06:16 Novolog Vial Sliding Scale - SQ Not Given ACHS [facility] Protocol Nortriptyline HCl 50 mg 07/30/17 22:00 07/30/17 23:03 Pamelor - PO 50 mg HS JOANNA Administration Pantoprazole Sodium 40 mg 07/31/17 10:00 Protonix - PO DAILY JOANNA Pregabalin 75 mg 07/30/17 14:00 07/31/17 06:16 Lyrica - PO 75 mg TID JOANNA Administration Laboratory Results - last 24 hr 07/30/17 07/30/17 07/30/17 06:35 06:35 06:35 WBC 7.0 RBC 3.93 L Hgb 11.0 L Hct 33.7 L MCV 85.9 MCH 28.0 MCHC 32.6 RDW 16.1 H Plt Count 186 MPV 9.2 Neutrophils % 75.9 Lymphocytes % 11.9 Monocytes % 11.1 H Eosinophils % 0.5 Basophils % 0.6 PT with INR INR Sodium 140 Potassium 4.3 Chloride 100 Carbon Dioxide 21 Anion Gap 19 H BUN 29 H Creatinine 1.6 H Creat Clearance w eGFR 40.90 POC Glucometer Random Glucose 182 H Calcium 9.7 Phosphorus 4.7 D Magnesium 1.4 L D Total Bilirubin 1.5 H D Direct Bilirubin AST 526 H D ALT 473 H D Alkaline Phosphatase 213 H D Troponin I 0.10 H Cancelled Total Protein 7.2 Albumin 3.5 07/30/17 07/30/17 07/30/17 07:11 11:40 16:46 WBC RBC Hgb Hct MCV MCH MCHC RDW Plt Count MPV Neutrophils % Lymphocytes % Monocytes % Eosinophils % Basophils % PT with INR 19.70 H INR 1.74 H D Sodium Potassium Chloride Carbon Dioxide Anion Gap BUN Creatinine Creat Clearance w eGFR POC Glucometer 265 181 Random Glucose Calcium Phosphorus Magnesium Total Bilirubin Direct Bilirubin AST ALT Alkaline Phosphatase Troponin I Total Protein Albumin 07/30/17 07/31/17 07/31/17 23:01 06:15 06:25 WBC 5.8 RBC 3.78 L Hgb 10.6 L Hct 31.9 L MCV 84.3 MCH 28.2 MCHC 33.4 RDW 16.2 H Plt Count 167 MPV 8.9 Neutrophils % 76.6 Lymphocytes % 10.9 Monocytes % 10.5 H Eosinophils % 1.3 D Basophils % 0.7 PT with INR INR Sodium Potassium Chloride Carbon Dioxide Anion Gap BUN Creatinine Creat Clearance w eGFR POC Glucometer 182 174 Random Glucose Calcium Phosphorus Magnesium Total Bilirubin Direct Bilirubin AST ALT Alkaline Phosphatase Troponin I Total Protein Albumin 07/31/17 07/31/17 06:25 06:25 WBC RBC Hgb Hct MCV MCH MCHC RDW Plt Count MPV Neutrophils % Lymphocytes % Monocytes % Eosinophils % Basophils % PT with INR 20.50 H INR 1.81 H Sodium 140 Potassium 3.8 Chloride 99 Carbon Dioxide 26 D Anion Gap 15 BUN 35 H D Creatinine 1.8 H Creat Clearance w eGFR POC Glucometer Random Glucose 170 H Calcium 8.9 Phosphorus 4.0 Magnesium 1.6 L Total Bilirubin 1.2 H Direct Bilirubin 0.6 H D AST 838 H D ALT 808 H D Alkaline Phosphatase 207 H Troponin I Total Protein 6.[address] chest results reviewed ASSESSMENT AND PLAN: 87 yom with PMHx of diastolic HF, HTN, NIDDM, admitted with dyspnea and abnormal LFTs -Acute diastolic Heart failure exacerbation vs right heart failure exacerbation -Abnormal LFTs, suspect passive hepatic congestion, r/o alternative etiology -ARJUN, suspect from CHF, r/o retention -Severe Aortic regurgitation -Uncontrolled HTN -NIDDM Plan: Lasix 40 mg IV BID, strict I/Os, daily weights. Follow up 2D echo. CT chest reviewed, no clear evidence of volume overload, follow up cardiology recs. ?right heart failure. LFTs worsening, GI input appreciated, follow up hep panel/autoimmune w/u, drug screen. Tylenol/salicylate levels neg. Confirmed with , no new medications or statins recently. Has been on nortyptiline and pregabalin for 2 years. retrieve home med list. (attempted pharmacy and daughter yesterday). Daily LFTs and INR. Creatinine worsening, renal US noted. renal consult. Renal dosing of meds. BP control, hydralazine prn. Coreg resumed, hold ARB, reconcile home meds. Hold oral hypoglycemics, ISS, diabetic diet. Concerns for non compliance on prior admission, could explain CHF exac and uncontrolled BP. DVTPPx with heparin. Dispo LFTS/INR worsening. Will need to address transfer to liver center and possible liver biopsy if continue to worsen and no clear etiology identified. plan discussed with patient and at bedside in detail, all questions answered. .
[2017-07-31 09:34] LABS: ACETAMINOPHEN < 2.000 ug/mL; SALICYLATE < 1.700 mg/dL
[2017-07-31] MEDS ORDERED: ALBUTEROL SO4 0.083% IH SOL 2.5 MG/3 ML VIAL.NEB. NEB PRN (09:59)
[2017-07-31] MEDS ORDERED: ALBUTEROL SO4 2.5/IPRATROPIUM 0.5 INH SOL 3 ML VIAL.NEB. NEB PRN (09:59)
[2017-07-31] MEDS: PANTOPRAZOLE 40 MG TABLET (FP) PO SCH (10:39)
[2017-07-31] MEDS: CARVEDILOL 6.25 MG TABLET (FP) PO SCH ×2 (10:39→21:49)
[2017-07-31] MEDS: DONEPEZIL HCL 10 MG TABLET (FP) PO SCH (10:40)
--- NOTE | 2017-07-31 10:53 | PN ---
Progress Note, Physician History of Present Illness: chart reviewed. Liver/kidney US noted - Current Medication List Current Medications: Active Medications Albuterol Sulfate (Ventolin 0.083% Nebulizer Soln -) 1 amp NEB Q4H PRN PRN Reason: SHORT OF BREATH/WHEEZING Albuterol/Ipratropium (Duoneb -) 1 amp NEB Q4H PRN PRN Reason: SHORTNESS OF BREATH Carvedilol (Coreg -) 6.25 mg PO BID [facility] Last Admin: 07/31/17 10:39 Dose: 6.25 mg Donepezil HCl (Aricept -) 10 mg PO DAILY [facility] Last Admin: 07/31/17 10:40 Dose: 10 mg Furosemide (Lasix Injection -) 40 mg IVPUSH BID@0600,1400 [facility] Last Admin: 07/31/17 06:16 Dose: 40 mg Hydralazine HCl (Apresoline Injection -) 10 mg IVPUSH Q6H PRN PRN Reason: HYPERTENSION Insulin Aspart (Novolog Vial Sliding Scale -) 1 vial SQ ACHS [facility] PRN Reason: Protocol Last Admin: 07/31/17 06:16 Dose: Not Given Nortriptyline HCl (Pamelor -) 50 mg PO HS [facility] Last Admin: 07/30/17 23:03 Dose: 50 mg Pantoprazole Sodium (Protonix -) 40 mg PO DAILY [facility] Last Admin: 07/31/17 10:39 Dose: 40 mg Pregabalin (Lyrica -) 75 mg PO TID [facility] Last Admin: 07/31/17 06:16 Dose: 75 mg - Objective Vital Signs: Vital Signs Temperature 98.0 F 07/31/17 09:16 Pulse Rate 82 07/31/17 09:16 Respiratory Rate 18 07/31/17 09:16 Blood Pressure 121/75 07/31/17 09:16 O2 Sat by Pulse Oximetry (%) 96 07/31/17 06:00 Labs: CBC, BMP 07/31/17 06:25 07/31/17 06:25 INR, PTT INR 1.81 (0.82-1.09) H 07/31/17 06:25 CBCD WBC 5.8 K/mm3 (4.0-10.0) 07/31/17 06:25 RBC 3.78 M/mm3 (4.00-5.60) L 07/31/17 06:25 Hgb 10.6 GM/dL (11.7-16.9) L 07/31/17 06:25 Hct 31.9 % (35.4-49) L 07/31/17 06:25 MCV 84.3 fl (80-96) 07/31/17 06:25 MCHC 33.4 g/dl (32.0-35.9) 07/31/17 06:25 RDW 16.2 % (11.9-15.9) H 07/31/17 06:25 Plt Count 167 K/MM3 (134-434) 07/31/17 06:25 MPV 8.9 fl (7.5-11.1) 07/31/17 06:25 CMP Sodium 140 mmol/L (136-145) 07/31/17 06:25 Potassium 3.8 mmol/L (3.5-5.1) 07/31/17 06:25 Chloride 99 mmol/L (98-107) 07/31/17 06:25 Carbon Dioxide 26 mmol/L (21-32) D 07/31/17 06:25 Anion Gap 15 (8-16) 07/31/17 06:25 BUN 35 mg/dL (7-18) H D 07/31/17 06:25 Creatinine 1.8 mg/dL (0.7-1.3) H 07/31/17 06:25 Creat Clearance w eGFR 40.90 (>60) 07/30/17 06:35 Calcium 8.9 mg/dL (8.5-10.1) 07/31/17 06:25 Total Bilirubin 1.2 mg/dL (0.2-1.0) H 07/31/17 06:25 AST 838 U/L (15-37) H D 07/31/17 06:25 ALT 808 U/L (12-78) H D 07/31/17 06:25 Alkaline Phosphatase 207 U/L (45-117) H 07/31/17 06:25 Total Protein 6.5 g/dl (6.4-8.2) 07/31/17 06:25 Albumin 3.2 g/dl (3.4-5.0) L 07/31/17 06:25 Problem List - Problems (1) CHF (congestive heart failure) Code(s): I50.9 - HEART FAILURE, UNSPECIFIED Qualifiers: Heart failure type: unspecified Heart failure chronicity: unspecified Qualified Code(s): I50.9 - Heart failure, unspecified (2) Fluid overload Code(s): E87.70 - FLUID OVERLOAD, UNSPECIFIED Qualifiers: Hypervolemia type: unspecified Qualified Code(s): E87.70 - Fluid overload, unspecified (3) Acute CHF Code(s): I50.9 - HEART FAILURE, UNSPECIFIED (4) Anemia Code(s): D64.9 - ANEMIA, UNSPECIFIED Qualifiers: Anemia type: unspecified type Qualified Code(s): D64.9 - Anemia, unspecified (5) Diastolic heart failure Code(s): I50.30 - UNSPECIFIED DIASTOLIC (CONGESTIVE) HEART FAILURE Qualifiers: Heart failure chronicity: acute on chronic Qualified Code(s): I50.33 - Acute on chronic diastolic (congestive) heart failure Assessment/Plan 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 R/o other common etiologies. Acute CHF management per primary team/cardiology Will asses for viral and autoimmune etiologies Daily liver chem, PT/INR
--- NOTE | 2017-07-31 12:31 | PN ---
Progress Note, Physician History of Present Illness: 87 year old man with a history of HTN, HLD, DMII, AR, CKD, Chronic diastolic CHF , admitted here 2016 with sob and diastolic CHF, stress test at that time showed no ischemia, admitted now for progressively worsening sob, edema. Pt seen and examined today in nad. states that for the past few days he has had progressivley worsening sob, also notes b/l LE edema. denies chest pain. - Current Medication List Current Medications: Active Medications Albuterol Sulfate (Ventolin 0.083% Nebulizer Soln -) 1 amp NEB Q4H PRN PRN Reason: SHORT OF BREATH/WHEEZING Albuterol/Ipratropium (Duoneb -) 1 amp NEB Q4H PRN PRN Reason: SHORTNESS OF BREATH Carvedilol (Coreg -) 6.25 mg PO BID [facility] Last Admin: 07/31/17 10:39 Dose: 6.25 mg Donepezil HCl (Aricept -) 10 mg PO DAILY [facility] Last Admin: 07/31/17 10:40 Dose: 10 mg Furosemide (Lasix Injection -) 40 mg IVPUSH BID@0600,1400 [facility] Last Admin: 07/31/17 06:16 Dose: 40 mg Hydralazine HCl (Apresoline Injection -) 10 mg IVPUSH Q6H PRN PRN Reason: HYPERTENSION Insulin Aspart (Novolog Vial Sliding Scale -) 1 vial SQ ACHS [facility] PRN Reason: Protocol Last Admin: 07/31/17 11:52 Dose: 2 unit Nortriptyline HCl (Pamelor -) 50 mg PO HS [facility] Last Admin: 07/30/17 23:03 Dose: 50 mg Pantoprazole Sodium (Protonix -) 40 mg PO DAILY [facility] Last Admin: 07/31/17 10:39 Dose: 40 mg Pregabalin (Lyrica -) 75 mg PO TID [facility] Last Admin: 07/31/17 06:16 Dose: 75 mg - Objective Vital Signs: Vital Signs Temperature 98.0 F 07/31/17 09:16 Pulse Rate 82 07/31/17 09:16 Respiratory Rate 18 07/31/17 09:16 Blood Pressure 121/75 07/31/17 09:16 O2 Sat by Pulse Oximetry (%) 96 07/31/17 06:00 Eyes: Yes: WNL, Conjunctiva Clear, EOM Intact HENT: Yes: WNL, Atraumatic, Normocephalic Neck: Yes: WNL, Supple, Trachea Midline Cardiovascular: Yes: WNL, Regular Rate and Rhythm, Murmur Respiratory: Yes: WNL, Regular, CTA Bilaterally Gastrointestinal: Yes: WNL, Normal Bowel Sounds Genitourinary: Yes: WNL Musculoskeletal: Yes: WNL Extremities: Yes: WNL Edema: Yes Integumentary: Yes: WNL Neurological: Yes: WNL, Alert, Oriented ...Motor Strength: WNL Psychiatric: Yes: WNL Labs: CBC, BMP 07/31/17 06:25 07/31/17 06:25 INR, PTT INR 1.81 (0.82-1.09) H 07/31/17 06:25 Assessment/Plan 87 year old man with a history of HTN, HLD, DMII, AR, CKD, Chronic diastolic CHF , admitted here 2016 with sob and diastolic CHF, stress test at that time showed no ischemia, admitted now for progressively worsening sob, edema. Pt seen and examined today in nad. states that for the past few days he has had progressivley worsening sob, also notes b/l LE edema. denies chest pain. SOB-pulmonary edema, pleural effusion, peripheral edema -acute on chronic diastolic CHF with AR -cont IV Lasix at current dose -monitor strict I/Os and daily weights -monitor bun/creat, electrolytes and replete as needed -pt being transferred to telemetry -repeat echo to reevaluate structural heart disease including including AR severity and LV function Prior work up: 09/08/2015 P-Myoview: No ischemia, LVEF 42% 09/08/2015 Echocardiogram showed normal LV systolic function, mild MR and TR, moderate to severe AR
--- NOTE | 2017-07-31 13:39 | PN ---
Progress Note, Physician History of Present Illness: chart reviewed. Liver/kidney US noted - Current Medication List Current Medications: Active Medications Albuterol Sulfate (Ventolin 0.083% Nebulizer Soln -) 1 amp NEB Q4H PRN PRN Reason: SHORT OF BREATH/WHEEZING Albuterol/Ipratropium (Duoneb -) 1 amp NEB Q4H PRN PRN Reason: SHORTNESS OF BREATH Carvedilol (Coreg -) 6.25 mg PO BID [facility] Last Admin: 07/31/17 10:39 Dose: 6.25 mg Donepezil HCl (Aricept -) 10 mg PO DAILY [facility] Last Admin: 07/31/17 10:40 Dose: 10 mg Furosemide (Lasix Injection -) 40 mg IVPUSH BID@0600,1400 [facility] Last Admin: 07/31/17 06:16 Dose: 40 mg Hydralazine HCl (Apresoline Injection -) 10 mg IVPUSH Q6H PRN PRN Reason: HYPERTENSION Insulin Aspart (Novolog Vial Sliding Scale -) 1 vial SQ ACHS [facility] PRN Reason: Protocol Last Admin: 07/31/17 11:52 Dose: 2 unit Nortriptyline HCl (Pamelor -) 50 mg PO HS [facility] Last Admin: 07/30/17 23:03 Dose: 50 mg Pantoprazole Sodium (Protonix -) 40 mg PO DAILY [facility] Last Admin: 07/31/17 10:39 Dose: 40 mg Pregabalin (Lyrica -) 75 mg PO TID [facility] Last Admin: 07/31/17 06:16 Dose: 75 mg - Objective Vital Signs: Vital Signs Temperature 98.0 F 07/31/17 09:16 Pulse Rate 82 07/31/17 09:16 Respiratory Rate 18 07/31/17 09:16 Blood Pressure 121/75 07/31/17 09:16 O2 Sat by Pulse Oximetry (%) 96 07/31/17 06:00 Constitutional: Yes: No Distress, Calm HENT: Yes: Atraumatic Neck: Yes: Supple Cardiovascular: No: Bradycardia, Tachycardia Respiratory: Yes: Regular Gastrointestinal: Yes: Soft, Distention. No: Ascites, Melena, Rectal Bleeding, Tenderness, Vomiting Neurological: Yes: Alert Labs: CBC, BMP 07/31/17 06:25 07/31/17 06:25 INR, PTT INR 1.81 (0.82-1.09) H 07/31/17 06:25 CBCD WBC 5.8 K/mm3 (4.0-10.0) 07/31/17 06:25 RBC 3.78 M/mm3 (4.00-5.60) L 07/31/17 06:25 Hgb 10.6 GM/dL (11.7-16.9) L 07/31/17 06:25 Hct 31.9 % (35.4-49) L 07/31/17 06:25 MCV 84.3 fl (80-96) 07/31/17 06:25 MCHC 33.4 g/dl (32.0-35.9) 07/31/17 06:25 RDW 16.2 % (11.9-15.9) H 07/31/17 06:25 Plt Count 167 K/MM3 (134-434) 07/31/17 06:25 MPV 8.9 fl (7.5-11.1) 07/31/17 06:25 CMP Sodium 140 mmol/L (136-145) 07/31/17 06:25 Potassium 3.8 mmol/L (3.5-5.1) 07/31/17 06:25 Chloride 99 mmol/L (98-107) 07/31/17 06:25 Carbon Dioxide 26 mmol/L (21-32) D 07/31/17 06:25 Anion Gap 15 (8-16) 07/31/17 06:25 BUN 35 mg/dL (7-18) H D 07/31/17 06:25 Creatinine 1.8 mg/dL (0.7-1.3) H 07/31/17 06:25 Creat Clearance w eGFR 40.90 (>60) 07/30/17 06:35 Calcium 8.9 mg/dL (8.5-10.1) 07/31/17 06:25 Total Bilirubin 1.2 mg/dL (0.2-1.0) H 07/31/17 06:25 AST 838 U/L (15-37) H D 07/31/17 06:25 ALT 808 U/L (12-78) H D 07/31/17 06:25 Alkaline Phosphatase 207 U/L (45-117) H 07/31/17 06:25 Total Protein 6.5 g/dl (6.4-8.2) 07/31/17 06:25 Albumin 3.2 g/dl (3.4-5.0) L 07/31/17 06:25 Laboratory Results - last 24 hr 07/30/17 07/30/17 07/31/17 16:46 23:01 06:15 WBC RBC Hgb Hct MCV MCH MCHC RDW Plt Count MPV Neutrophils % Lymphocytes % Monocytes % Eosinophils % Basophils % PT with INR INR Sodium Potassium Chloride Carbon Dioxide Anion Gap BUN Creatinine POC Glucometer 181 182 174 Random Glucose Calcium Phosphorus Magnesium Total Bilirubin Direct Bilirubin AST ALT Alkaline Phosphatase Total Protein Albumin Salicylates Acetaminophen 07/31/17 07/31/17 07/31/17 06:25 06:25 06:25 WBC 5.8 RBC 3.78 L Hgb 10.6 L Hct 31.9 L MCV 84.3 MCH 28.2 MCHC 33.4 RDW 16.2 H Plt Count 167 MPV 8.9 Neutrophils % 76.6 Lymphocytes % 10.9 Monocytes % 10.5 H Eosinophils % 1.3 D Basophils % 0.7 PT with INR 20.50 H INR 1.81 H Sodium 140 Potassium 3.8 Chloride 99 Carbon Dioxide 26 D Anion Gap 15 BUN 35 H D Creatinine 1.8 H POC Glucometer Random Glucose 170 H Calcium 8.9 Phosphorus 4.0 Magnesium 1.6 L Total Bilirubin 1.2 H Direct Bilirubin 0.6 H D AST 838 H D ALT 808 H D Alkaline Phosphatase 207 H Total Protein 6.5 Albumin 3.2 L Salicylates < 1.700 Acetaminophen < 2.000 07/31/17 07/31/17 06:25 11:21 WBC RBC Hgb Hct MCV MCH MCHC RDW Plt Count MPV Neutrophils % Lymphocytes % Monocytes % Eosinophils % Basophils % PT with INR INR Sodium Potassium Chloride Carbon Dioxide Anion Gap BUN Creatinine POC Glucometer 227 Random Glucose Calcium Phosphorus Magnesium Total Bilirubin Direct Bilirubin AST ALT Alkaline Phosphatase Total Protein Albumin Salicylates Cancelled Acetaminophen Cancelled Problem List - Problems (1) CHF (congestive heart failure) Code(s): I50.9 - HEART FAILURE, UNSPECIFIED Qualifiers: Heart failure type: unspecified Heart failure chronicity: unspecified Qualified Code(s): I50.9 - Heart failure, unspecified (2) Fluid overload Code(s): E87.70 - FLUID OVERLOAD, UNSPECIFIED Qualifiers: Hypervolemia type: unspecified Qualified Code(s): E87.70 - Fluid overload, unspecified (3) Acute CHF Code(s): I50.9 - HEART FAILURE, UNSPECIFIED (4) Anemia Code(s): D64.9 - ANEMIA, UNSPECIFIED Qualifiers: Anemia type: unspecified type Qualified Code(s): D64.9 - Anemia, unspecified (5) Diastolic heart failure Code(s): I50.30 - UNSPECIFIED DIASTOLIC (CONGESTIVE) HEART FAILURE Qualifiers: Heart failure chronicity: acute on chronic Qualified Code(s): I50.33 - Acute on chronic diastolic (congestive) heart failure Assessment/Plan 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 R/o other common etiologies. Acute CHF management per primary team/cardiology Will asses for viral and autoimmune etiologies Daily liver chem, PT/INR
--- NOTE | 2017-07-31 15:50 | CONSULT ---
Consult Consult Specialty:: Nephrology Reason for Consultation:: ARJUN - History of Present Illness Chief Complaint: shortness of breath History of Present Illness: Pt is an 87 year old male with pmhx of CHF, HTN, DM, CKD and HLD who initially presents to the ER with shortness of breath. He says it began a few days before admission and was getting worse. He was noted to have elevated creatinine that has been worsening everyday. He feels that his shortness of breath is a little better today. He does get lower ext edema at times. He denies nsaid use. He denies fevers or chills. He denies chest pain or palpitations. He denies dysuria or hematuria. - History Source History Provided By: Patient, Medical Record - Past Medical History Cardio/Vascular: Yes: Aortic Insufficiency, CHF, HTN, Hyperlipdemia Renal/: Yes: Renal Inusuff Endocrine: Yes: Diabetes Mellitus - Alcohol/Substance Use Hx Alcohol Use: No - Smoking History Smoking history: Former smoker Have you smoked in the past 12 months: No If you are a former smoker, when did you quit?: over 20 years ago - Social History Usual Living Arrangement: With Spouse ADL: Family Assistance History of Recent Travel: No Home Medications - Allergies Allergies/Adverse Reactions: Allergies Allergy/AdvReac Type Severity Reaction Status Date / Time No Known Allergies Allergy Verified 07/29/17 17:33 - Home Medications Home Medications: Ambulatory Orders Glipizide/Metformin HCl [Glipizide-Metformin 5-500 mg] 2 each PO BIDAC 09/06/15 Nortriptyline HCl 50 mg PO HS 09/06/15 Omeprazole [Prilosec] 40 mg PO DAILY 09/06/15 Sitagliptin Phosphate [Januvia] 100 mg PO AM 09/06/15 Chlorthalidone 50 mg PO DAILY 07/29/17 Donepezil HCl [Aricept] 10 mg PO DAILY 07/29/17 Family Disease History - Family Disease History Family History: Denies Review of Systems - Review of Systems Constitutional: reports: Malaise Eyes: reports: No Symptoms HENT: reports: No Symptoms Neck: reports: No Symptoms Cardiovascular: reports: Edema, Shortness of Breath. denies: Chest Pain Respiratory: reports: Cough, SOB Gastrointestinal: reports: No Symptoms Genitourinary: reports: No Symptoms Musculoskeletal: reports: No Symptoms Integumentary: reports: No Symptoms Neurological: reports: No Symptoms Endocrine: reports: No Symptoms Hematology/Lymphatic: reports: No Symptoms Psychiatric: reports: No Symptoms Physical Exam Vital Signs: Vital Signs Temperature 97.3 F L 07/31/17 14:44 Pulse Rate 76 07/31/17 14:44 Respiratory Rate 18 07/31/17 14:44 Blood Pressure 111/52 07/31/17 14:44 O2 Sat by Pulse Oximetry (%) 96 07/31/17 06:00 Constitutional: Yes: Calm Eyes: Yes: Conjunctiva Clear HENT: Yes: Atraumatic Cardiovascular: Yes: S1, S2 Respiratory: Yes: CTA Bilaterally, On Nasal O2 Gastrointestinal: Yes: Soft Renal/: Yes: WNL Musculoskeletal: Yes: WNL Edema: Yes Edema: LLE: Trace, RLE: Trace Neurological: Yes: Oriented Psychiatric: Yes: Oriented Labs: CBC, BMP 07/31/17 06:25 07/31/17 06:25 Laboratory Tests 09/08/15 09/09/15 07/29/17 05:40 05:35 18:20 WBC Hgb Sodium Potassium BUN Creatinine 1.5 H 1.4 H 1.4 H CEFERINO Screen [facility]p Hepatitis A IgM Ab Hepatitis A Ab Total Hep Bs Antigen Hep Bs Antibody Hep B Core Total Ab Hep B Core IgM Ab Hepatitis C Antibody 07/30/17 07/30/17 07/31/17 06:35 06:35 06:25 WBC 5.8 Hgb 11.0 L 10.6 L Sodium Potassium BUN Creatinine 1.6 H CEFERINO Screen [facility] [facility] Intrp Hepatitis A IgM Ab Hepatitis A Ab Total Hep Bs Antigen Hep Bs Antibody Hep B Core Total Ab Hep B Core IgM Ab Hepatitis C Antibody 07/31/17 07/31/17 07/31/17 06:25 06:25 06:25 WBC Hgb Sodium 140 Potassium 3.8 BUN 35 H D Creatinine 1.8 H CEFERINO Screen Pending [facility] Pending Hepatitis A IgM Ab Pending Hepatitis A Ab Total Pending Hep Bs Antigen Pending Pending Hep Bs Antibody Pending Hep B Core Total Ab Pending Hep B Core IgM Ab Pending Hepatitis C Antibody Pending Imaging - Results Chest X-ray: Report Reviewed Problem List - Problems (1) CKD (chronic kidney disease) Code(s): N18.9 - CHRONIC KIDNEY DISEASE, UNSPECIFIED (2) CHF (congestive heart failure) Code(s): I50.9 - HEART FAILURE, UNSPECIFIED Qualifiers: Heart failure type: unspecified Heart failure chronicity: unspecified Qualified Code(s): I50.9 - Heart failure, unspecified (3) Hypertension Code(s): I10 - ESSENTIAL (PRIMARY) HYPERTENSION Qualifiers: Hypertension type: essential hypertension Qualified Code(s): I10 - Essential (primary) hypertension Assessment/Plan Current Medications Generic Name Dose Route Start Last Admin Trade Name Freq PRN Reason Stop Dose Admin Albuterol Sulfate 1 amp 07/31/17 09:59 Ventolin 0.083% Nebulizer Soln - NEB Q4H PRN SHORT OF BREATH/WHEEZING Albuterol/Ipratropium 1 amp 07/31/17 09:59 Duoneb - NEB Q4H PRN SHORTNESS OF BREATH Carvedilol 6.25 mg 07/30/17 13:45 07/31/17 10:39 Coreg - PO 6.25 mg BID [facility] Administration Donepezil HCl 10 mg 07/31/17 10:00 07/31/17 10:40 Aricept - PO 10 mg DAILY [facility] Administration Furosemide 40 mg 07/30/17 14:00 07/31/17 14:07 Lasix Injection - IVPUSH 40 mg BID@0600,1400 [facility] Administration Hydralazine HCl 10 mg 07/30/17 13:04 Apresoline Injection - IVPUSH Q6H PRN HYPERTENSION Insulin Aspart 1 vial 07/30/17 16:30 07/31/17 11:52 Novolog Vial Sliding Scale - SQ 2 unit ACHS [facility] Administration Protocol Pantoprazole Sodium 40 mg 07/31/17 10:00 07/31/17 10:39 Protonix - PO 40 mg DAILY [facility] Administration Impression 1. CKD 2. ARJUN 3. CHF 4. HTN 5. DM 6. GERD Plan - check ua - check ultrasound kidneys and bladder - check urine urea, lyte and survey interviewer - will comment more on etiology of kidney disease after reviewing urine studies - will need outpt renal workup as well - repeat labs in am - may need to decrease dose of diuretics tomorrow - will follow Dr Smith
--- NOTE | 2017-07-31 16:33 | PN ---
Physical Exam: SUBJECTIVE: Patient seen and examined No acute events overnight. Pt reports that SOB and cough are improving. No other new subjective complaints. OBJECTIVE: Vital Signs Period Temp Pulse Resp BP Sys/Be Pulse Ox Last 24 Hr 97.3 F-98.6 F 76-95 18-22 109-121/52-78 95-96 GENERAL: elderly male, awake, alert, and fully oriented, in no acute distress. HEENT: NC, AT LUNGS: bibasilar rales, no rhonchi or wheezing HEART: Regular rate and rhythm, normal S1 and S2 without murmur, rub or gallop. ABDOMEN: soft, NT, ND MUSCULOSKELETAL: b/l 2+ pitting edema to knees NEUROLOGICAL: Cranial nerves II-XII intact. Normal speech. Laboratory Results - last 24 hr 07/30/17 07/30/17 07/31/17 16:46 23:01 06:15 WBC RBC Hgb Hct MCV MCH MCHC RDW Plt Count MPV Neutrophils % Lymphocytes % Monocytes % Eosinophils % Basophils % PT with INR INR Sodium Potassium Chloride Carbon Dioxide Anion Gap BUN Creatinine POC Glucometer 181 182 174 Random Glucose Calcium Phosphorus Magnesium Total Bilirubin Direct Bilirubin AST ALT Alkaline Phosphatase Total Protein Albumin Salicylates Acetaminophen 07/31/17 07/31/17 07/31/17 06:25 06:25 06:25 WBC 5.8 RBC 3.78 L Hgb 10.6 L Hct 31.9 L MCV 84.3 MCH 28.2 MCHC 33.4 RDW 16.2 H Plt Count 167 MPV 8.9 Neutrophils % 76.6 Lymphocytes % 10.9 Monocytes % 10.5 H Eosinophils % 1.3 D Basophils % 0.7 PT with INR 20.50 H INR 1.81 H Sodium 140 Potassium 3.8 Chloride 99 Carbon Dioxide 26 D Anion Gap 15 BUN 35 H D Creatinine 1.8 H POC Glucometer Random Glucose 170 H Calcium 8.9 Phosphorus 4.0 Magnesium 1.6 L Total Bilirubin 1.2 H Direct Bilirubin 0.6 H D AST 838 H D ALT 808 H D Alkaline Phosphatase 207 H Total Protein 6.5 Albumin 3.2 L Salicylates < 1.700 Acetaminophen < 2.000 07/31/17 07/31/17 06:25 11:21 WBC RBC Hgb Hct MCV MCH MCHC RDW Plt Count MPV Neutrophils % Lymphocytes % Monocytes % Eosinophils % Basophils % PT with INR INR Sodium Potassium Chloride Carbon Dioxide Anion Gap BUN Creatinine POC Glucometer 227 Random Glucose Calcium Phosphorus Magnesium Total Bilirubin Direct Bilirubin AST ALT Alkaline Phosphatase Total Protein Albumin Salicylates Cancelled Acetaminophen Cancelled Active Medications Generic Name Dose Route Start Last Admin Trade Name Freq PRN Reason Stop Dose Admin Albuterol Sulfate 1 amp 07/31/17 09:59 Ventolin 0.083% Nebulizer Soln - NEB Q4H PRN SHORT OF BREATH/WHEEZING Albuterol/Ipratropium 1 amp 07/31/17 09:59 Duoneb - NEB Q4H PRN SHORTNESS OF BREATH Carvedilol 6.25 mg 07/30/17 13:45 07/31/17 10:39 Coreg - PO 6.25 mg BID [facility] Administration Donepezil HCl 10 mg 07/31/17 10:00 07/31/17 10:40 Aricept - PO 10 mg DAILY [facility] Administration Furosemide 40 mg 07/30/17 14:00 07/31/17 14:07 Lasix Injection - IVPUSH 40 mg BID@0600,1400 [facility] Administration Hydralazine HCl 10 mg 07/30/17 13:04 Apresoline Injection - IVPUSH Q6H PRN HYPERTENSION Insulin Aspart 1 vial 07/30/17 16:30 07/31/17 11:52 Novolog Vial Sliding Scale - SQ 2 unit ACHS [facility] Administration Protocol Pantoprazole Sodium 40 mg 07/31/17 10:00 07/31/17 10:39 Protonix - PO 40 mg DAILY [facility] Administration ASSESSMENT/PLAN: 87M w/ hx of diastolic CHF, HTN, NIDDM, and HLD who presented with acute SOB. #SOB -likely 2/2 acute CHF exacerbation possibly triggered by viral URI -lasix 40 IV BID -home chlorthalidone held -supplemental O2 PRN -CT chest: small effusion on right side with atelectasis/scarring at bases. -echo: LVEF of 35-40%. diastolic dysfunction, grade 2. moderate MR, TR, aortic sclerosis, AR. PA pressure of 32. #elevated LFTs- worsening -likely 2/2 congestive hepatopathy from CHF w/ underlying hepatic disease -trend LFTs -US abdomen: fatty liver vs. hepatocellular disease -CT chest: irregular liver edge, possibly 2/2 cirrhosis -GI on board, recs appreciated -f/u hepatitis panel, CEFERINO, SMA, ANALYSIS EVALUATOR #acute on chronic kidney disease- worsening -creatinine of 1.4, at baseline -creatinine of 1.8 today -nephrology on board, recs appreciated. -f/u urine lytes, UA. outpt w/u. may need to decrease lasix alesia #anemia -stable #troponinemia -trops peaked at 0.11 -likely 2/2 demand ischemia #HTN -lasix and coreg #DM -hold home oral hypoglycemics -ISS, BGM ACHS #dementia -continue donepezil #chronic back pain -APAP for pain #FEN/ppx -po fluids -electrolytes wnl -diabetic/sodium controlled diet -protonix -heparin held due to elevated INR Case discussed with attending, Dr. Hannah. -Mason Vera MD PGY1 Visit type - Emergency Visit Emergency Visit: Yes ED Registration Date: 07/30/17 Care time: The patient presented to the Emergency Department on the above date and was hospitalized for further evaluation of their emergent condition. - New Patient This patient is new to me today: No - Critical Care Critical Care patient: No
[2017-07-31] MEDS ORDERED: MAGNESIUM SULF 50% (8.12 MEQ/2 ML-1 GM VIAL) IVPB ONE (20:15)
[2017-08-01] MEDS: INSULIN SLIDING SCALE (NOVOLOG) 1 VIAL SQ SCH ×4 (06:21→21:29)
[2017-08-01] MEDS: FUROSEMIDE 40 MG/4 ML INJECTABLE VIAL IVPUSH SCH ×2 (06:21→16:11)
[2017-08-01 07:50] LABS: INR 1.51 (0.82-1.09); PROTHROMBIN TIME (PATIENT) 17.1 SEC (9.98-11.88)
[2017-08-01 07:54] LABS: EOS % 4.7 % (0-4.5); HEMATOCRIT 32.9 % (35.4-49); HEMOGLOBIN 10.9 GM/dL (11.7-16.9); LYMPH % 18.7 % (8-40); MEAN CELL VOLUME 84.9 fl (80-96); MEAN PLT VOLUME 8.9 fl (7.5-11.1); NEUT % 61.6 % (42.8-82.8); PLATELET COUNT 174 K/MM3 (134-434); RBC 3.88 M/mm3 (4.00-5.60); RDW 15.9 % (11.9-15.9); WHITE BLOOD COUNT 5.7 K/mm3 (4.0-10.0)
[2017-08-01 07:58] LABS: ALK PHOS 189 U/L (45-117); ANION GAP 14 (8-16); BLOOD UREA NITROGEN 39 mg/dL (7-18); CALCIUM 8.7 mg/dL (8.5-10.1); CHLORIDE 99 mmol/L (98-107); CO2 26 mmol/L (21-32); CREATININE 1.6 mg/dL (0.7-1.3); GLUCOSE,RANDOM 150 mg/dL (74-106); POTASSIUM 3.4 mmol/L (3.5-5.1); SGOT/AST 339 U/L (15-37); SODIUM 139 mmol/L (136-145); TOT PROT 6.4 g/dl (6.4-8.2)
[2017-08-01 08:16] LABS: SGPT/ALT 605 U/L (12-78)
[2017-08-01] MEDS ORDERED: POTASSIUM CHLORIDE TABS 20 MEQ TABLET.ER (FP) PO ONE ×2 (09:15→13:15)
[2017-08-01 09:40] LABS: URINE APPEARANCE CLEAR; URINE BILIRUBIN NEGATIVE (NEGATIVE); URINE BLOOD NEGATIVE (NEGATIVE); URINE COLOR STRAW; URINE GLUCOSE (UA) NEGATIVE (NEGATIVE); URINE KETONE NEGATIVE (NEGATIVE); URINE LEUK ESTERASE NEGATIVE (NEGATIVE); URINE NITRITE NEGATIVE (NEGATIVE); URINE PROTEIN NEGATIVE (NEGATIVE)
[2017-08-01] MEDS: PANTOPRAZOLE 40 MG TABLET (FP) PO SCH (09:53)
[2017-08-01] MEDS: DONEPEZIL HCL 10 MG TABLET (FP) PO SCH (09:53)
[2017-08-01] MEDS: CARVEDILOL 6.25 MG TABLET (FP) PO SCH ×2 (09:53→21:20)
[2017-08-01 10:05] LABS: URINE CREATININE 18.9 mg/dL (20-370)
[2017-08-01 10:14] LABS: CMV IgM < 30.0 AU/mL (0.0-29.9)
[2017-08-01] MEDS ORDERED: INSULIN (NOVOLOG) ASPART 100 UNITS/ML 10ML VIAL ONE ×2 (11:59→21:25)
[2017-08-01 13:35] LABS: COCAINE, UR NEGATIVE ng/ml (CUTOFF=300); METHADONE, UR NEGATIVE ng/ml (CUTOFF=300); OPIATES, URI NEGATIVE ng/ml (CUTOFF=300); PHENCYCLIDINE,URINE NEGATIVE ng/ml (CUTOFF=25); URINE AMPHETAMINES NEGATIVE ng/ml (CUTOFF=500); URINE BARBITURATES NEGATIVE ng/ml (CUTOFF=200); URINE BENZODIAZEPINES NEGATIVE ng/ml (CUTOFF=200)
--- NOTE | 2017-08-01 13:37 | PN ---
Teaching Attending Note Name of Resident: Mason Vera ATTENDING PHYSICIAN STATEMENT I saw and evaluated the patient. I reviewed the resident's note and discussed the case with the resident. I agree with the resident's findings and plan as documented. SUBJECTIVE:breathing is improved. has no complaints. denies CP, SOB, fever, chills, N/v/C/D OBJECTIVE: Last Vital Signs Temp Pulse Resp BP Pulse Ox 97.2 F L 76 19 123/67 99 08/01/17 09:45 08/01/17 09:45 08/01/17 09:45 08/01/17 09:45 08/01/17 06:00 Intake & Output 07/29/17 07/30/17 07/31/17 08/01/17 23:59 23:59 23:59 23:59 Intake Total 400 550 Output Total 1750 2250 300 Balance -1350 -1700 -300 Weight 170 lb 178 lb 170 lb 6 oz 168 lb 9.6 oz General NAD CV S1 S2 RRR Lungs decreased breath sounds B/L bases Abdomen soft NT/ND Extremites no pedal edema ASSESSMENT AND PLAN: 87 yo M with PMHx of diastolic HF, HTN, NIDDM, admitted with dyspnea and abnormal LFTs 1. Acute on chronic diastolic/systolic Heart failure- 10 lb weight loss since admission. does not know dry weight. Echo showing worsening functioning since last echo in 2016. cardio to discuss if should have repeat cath to further evaluate. will cont lasix 40mg IV BID. exacerbation vs right heart failure exacerbation. will cont at this time. strict I&O, daily weights. monitor electrolytes. cardio on board, cont coreg 2. Transaminitis- likely passive hepatic congestion with underlying hepatocellular disease. now trending down. full workup pending. GI on board. may require Bx in the future as outpatient to further characterize. hold statin at this time 3. Hypokalmeia- Kcl po 4. ARJUN- pre-renal vs retention FeNA 7%. baseline Cr 1.4. renal/bladder u/s suboptimal study. urinating freely. low post-void residual. now trending down. avoid nephrotoxic agents. 5. Severe Aortic regurgitation 6. HTN-now improved. 7. NIDDM- controlled. cont iss,bgm. hold oral agents 8. DVT ppx- hep sq 9. PT eval. anticipate possible discharge in next 24-48H.
--- NOTE | 2017-08-01 15:19 | PN ---
Progress Note, Physician History of Present Illness: Pt seen and examined at bedside. He is awake and alert. He feels that his breathing is improved. - Current Medication List Current Medications: Active Medications Albuterol Sulfate (Ventolin 0.083% Nebulizer Soln -) 1 amp NEB Q4H PRN PRN Reason: SHORT OF BREATH/WHEEZING Albuterol/Ipratropium (Duoneb -) 1 amp NEB Q4H PRN PRN Reason: SHORTNESS OF BREATH Carvedilol (Coreg -) 6.25 mg PO BID [facility] Last Admin: 08/01/17 09:53 Dose: 6.25 mg Donepezil HCl (Aricept -) 10 mg PO DAILY [facility] Last Admin: 08/01/17 09:53 Dose: 10 mg Furosemide (Lasix Injection -) 40 mg IVPUSH BID@0600,1400 [facility] Last Admin: 08/01/17 06:21 Dose: 40 mg Hydralazine HCl (Apresoline Injection -) 10 mg IVPUSH Q6H PRN PRN Reason: HYPERTENSION Insulin Aspart (Novolog Vial Sliding Scale -) 1 vial SQ ACHS [facility] PRN Reason: Protocol Last Admin: 08/01/17 12:00 Dose: 4 unit Pantoprazole Sodium (Protonix -) 40 mg PO DAILY [facility] Last Admin: 08/01/17 09:53 Dose: 40 mg - Objective Vital Signs: Vital Signs Temperature 97.1 F L 08/01/17 13:25 Pulse Rate 91 H 08/01/17 14:17 Respiratory Rate 22 08/01/17 13:25 Blood Pressure 124/68 08/01/17 13:25 O2 Sat by Pulse Oximetry (%) 97 08/01/17 14:17 Constitutional: Yes: Calm Eyes: Yes: Conjunctiva Clear HENT: Yes: Atraumatic Neck: Yes: Supple Cardiovascular: Yes: S1, S2 Respiratory: Yes: Rhonchi Gastrointestinal: Yes: Soft Genitourinary: Yes: WNL Musculoskeletal: Yes: WNL Edema: LLE: Trace, RLE: Trace Neurological: Yes: Oriented Psychiatric: Yes: Oriented Labs: CBC, BMP 08/01/17 06:52 08/01/17 08:30 INR, PTT INR 1.51 (0.82-1.09) H 08/01/17 06:52 Problem List - Problems (1) CKD (chronic kidney disease) Code(s): N18.9 - CHRONIC KIDNEY DISEASE, UNSPECIFIED (2) CHF (congestive heart failure) Code(s): I50.9 - HEART FAILURE, UNSPECIFIED Qualifiers: Heart failure type: unspecified Heart failure chronicity: unspecified Qualified Code(s): I50.9 - Heart failure, unspecified (3) Hypertension Code(s): I10 - ESSENTIAL (PRIMARY) HYPERTENSION Qualifiers: Hypertension type: essential hypertension Qualified Code(s): I10 - Essential (primary) hypertension Assessment/Plan Current Medications Generic Name Dose Route Start Last Admin Trade Name Freq PRN Reason Stop Dose Admin Albuterol Sulfate 1 amp 07/31/17 09:59 Ventolin 0.083% Nebulizer Soln - NEB Q4H PRN SHORT OF BREATH/WHEEZING Albuterol/Ipratropium 1 amp 07/31/17 09:59 Duoneb - NEB Q4H PRN SHORTNESS OF BREATH Carvedilol 6.25 mg 07/30/17 13:45 08/01/17 09:53 Coreg - PO 6.25 mg BID JOANNA Administration Donepezil HCl 10 mg 07/31/17 10:00 08/01/17 09:53 Aricept - PO 10 mg DAILY JOANNA Administration Furosemide 40 mg 07/30/17 14:00 08/01/17 06:21 Lasix Injection - IVPUSH 40 mg BID@0600,1400 JOANNA Administration Hydralazine HCl 10 mg 07/30/17 13:04 Apresoline Injection - IVPUSH Q6H PRN HYPERTENSION Insulin Aspart 1 vial 07/30/17 16:30 08/01/17 12:00 Novolog Vial Sliding Scale - SQ 4 unit ACHS JOANNA Administration Protocol Pantoprazole Sodium 40 mg 07/31/17 10:00 08/01/17 09:53 Protonix - PO 40 mg DAILY JOANNA Administration Laboratory Tests 08/01/17 08:30 Urine Protein Negative Urine Blood Negative Impression 1. CKD 2. ARJUN 3. CHF 4. HTN 5. DM 6. GERD Plan - negative blood negative protein in ua - renal ultrasound reviewed - consider decreasing dose of lasix - replace potassium and check mag - will follow Dr Smith
--- NOTE | 2017-08-01 15:37 | PN ---
Physical Exam: SUBJECTIVE: Patient seen and examined No acute events overnight. Pt reports that SOB and cough are improving. No other new subjective complaints. OBJECTIVE: Vital Signs Period Temp Pulse Resp BP Sys/Be Pulse Ox Last 24 Hr 97.1 F-98.6 F 73-91 18-22 118-128/56-68 97-100 GENERAL: elderly male, awake, alert, and fully oriented, in no acute distress. HEENT: NC, AT LUNGS: bibasilar rales, no rhonchi or wheezing HEART: Regular rate and rhythm, normal S1 and S2 without murmur, rub or gallop. ABDOMEN: soft, NT, ND MUSCULOSKELETAL: improved LE edema, now 1+ to mid calf NEUROLOGICAL: Cranial nerves II-XII intact. Normal speech. Laboratory Results - last 24 hr 07/31/17 07/31/17 07/31/17 06:25 06:25 16:44 WBC RBC Hgb Hct MCV MCH MCHC RDW Plt Count MPV Neutrophils % Lymphocytes % Monocytes % Eosinophils % Basophils % PT with INR INR Sodium Potassium Chloride Carbon Dioxide Anion Gap BUN Creatinine Creat Clearance w eGFR POC Glucometer 270 Random Glucose Specific [place] Calcium Total Bilirubin AST ALT Alkaline Phosphatase Total Protein Albumin Urine Color Urine Appearance Urine pH Ur Specific [place] Urine Protein Urine Glucose (UA) Urine Ketones Urine Blood Urine Nitrite Urine Bilirubin Urine Urobilinogen Ur Leukocyte Esterase Ur Random Sodium Ur Random Potassium Ur Random Chloride Ur Random Urea Nitrogn Urine Creatinine Urine Butalbital Ur Butalbital Confirm Opiates Screen Urine Opiates Screen Meperidine Urine Normeperidine U Normeperidine GC/MS Urine Codeine U Codeine Confrm GC/MS Urine Morphine Morphine Confirm GC/MS Urine Hydrocodone Ur Hydrocodone (GC/MS) Urine Oxycodone Ur Oxycodone GC/MS Oxymorphone Confirm Urine Oxymorphone U Oxycodone/Oxymorphon Methadone Screen Ur Methadone Ur Methadone Confirm Ur Hydromorphone Ur Hydromorphone (GC/MS) Urine Propoxyphene U Propoxyphene/M GC/MS Barbiturate Screen Ur Barbiturates Screen Urine Barbiturates Phencyclidine Screen Ur Phencyclidine (PCP) Ur PCP Confirm (GC/MS) Amphetamines Amphetamines Grp GC/MS Ur Amphetamines Screen Urine Amphetamine Ur Amphetamines, Quant Methamphetamine Methamphetamine GC/MS MDMA (Ecstasy) Screen Urine Amobarbital Ur Amobarbital GC/MS Urine Pentobarbital U Pentobarbital GC/MS Urine Phenobarbital U Phenobarbital GC/MS Urine Secobarbital U Secobarbital GC/MS Urine Alprazolam U [place]-Alprazolam GC/MS Benzodiazepines Screen U Benzodiazepines Scrn Urine Clonazepam U 7-Amino Clonazep GC/MS Ur Nordiazepam Ur Nordiazepam GC/MS Flurazepam Flurazepam Confirm Lorazepam Urine Lorazepam Ur Oxazepam U Oxazepam Confm GC/MS Urine Temazepam Ur Temazepam (GC/MS) Urine Triazolam Ur Triazolam (GC/MS) Meperidine (GC/MS) Ur Meperidine Cocaine Screen Cocaine & Metabolite Urine Cocaine Benzoylecgonine Cannabinoids Urine Cannabinoids U Marijuana (THC) Screen Urine Marijuana (THC) Urine Ethyl Alcohol CMV IgM Ab < 30.0 Hepatitis A IgM Ab Negative Hep Bs Antigen Negative Hep B Core IgM Ab Negative Hepatitis C Antibody <0.1 07/31/17 08/01/17 08/01/17 21:42 06:06 06:52 WBC RBC Hgb Hct MCV MCH MCHC RDW Plt Count MPV Neutrophils % Lymphocytes % Monocytes % Eosinophils % Basophils % PT with INR INR Sodium 139 Potassium 3.4 L Chloride 99 Carbon Dioxide 26 Anion Gap 14 BUN 39 H Creatinine 1.6 H Creat Clearance w eGFR 40.90 POC Glucometer 137 147 Random Glucose 150 H Specific [place] Calcium 8.7 Total Bilirubin 1.0 AST 339 H D ALT 605 H D Alkaline Phosphatase 189 H Total Protein 6.4 Albumin 3.0 L Urine Color Urine Appearance Urine pH Ur Specific [place] Urine Protein Urine Glucose (UA) Urine Ketones Urine Blood Urine Nitrite Urine Bilirubin Urine Urobilinogen Ur Leukocyte Esterase Ur Random Sodium Ur Random Potassium Ur Random Chloride Ur Random Urea Nitrogn Urine Creatinine Urine Butalbital Ur Butalbital Confirm Opiates Screen Urine Opiates Screen Meperidine Urine Normeperidine U Normeperidine GC/MS Urine Codeine U Codeine Confrm GC/MS Urine Morphine Morphine Confirm GC/MS Urine Hydrocodone Ur Hydrocodone (GC/MS) Urine Oxycodone Ur Oxycodone GC/MS Oxymorphone Confirm Urine Oxymorphone U Oxycodone/Oxymorphon Methadone Screen Ur Methadone Ur Methadone Confirm Ur Hydromorphone Ur Hydromorphone (GC/MS) Urine Propoxyphene U Propoxyphene/M GC/MS Barbiturate Screen Ur Barbiturates Screen Urine Barbiturates Phencyclidine Screen Ur Phencyclidine (PCP) Ur PCP Confirm (GC/MS) Amphetamines Amphetamines Grp GC/MS Ur Amphetamines Screen Urine Amphetamine Ur Amphetamines, Quant Methamphetamine Methamphetamine GC/MS MDMA (Ecstasy) Screen Urine Amobarbital Ur Amobarbital GC/MS Urine Pentobarbital U Pentobarbital GC/MS Urine Phenobarbital U Phenobarbital GC/MS Urine Secobarbital U Secobarbital GC/MS Urine Alprazolam U OH-Alprazolam GC/MS Benzodiazepines Screen U Benzodiazepines Scrn Urine Clonazepam U 7-Amino Clonazep GC/MS Ur Nordiazepam Ur Nordiazepam GC/MS Flurazepam Flurazepam Confirm Lorazepam Urine Lorazepam Ur Oxazepam U Oxazepam Confm GC/MS Urine Temazepam Ur Temazepam (GC/MS) Urine Triazolam Ur Triazolam (GC/MS) Meperidine (GC/MS) Ur Meperidine Cocaine Screen Cocaine & Metabolite Urine Cocaine Benzoylecgonine Cannabinoids Urine Cannabinoids U Marijuana (THC) Screen Urine Marijuana (THC) Urine Ethyl Alcohol CMV IgM Ab Hepatitis A IgM Ab Hep Bs Antigen Hep B Core IgM Ab Hepatitis C Antibody 08/01/17 08/01/17 08/01/17 06:52 06:52 08:30 WBC 5.7 RBC 3.88 L Hgb 10.9 L Hct 32.9 L MCV 84.9 MCH 28.0 MCHC 33.0 RDW 15.9 Plt Count 174 MPV 8.9 Neutrophils % 61.6 Lymphocytes % 18.7 D Monocytes % 14.0 H Eosinophils % 4.7 H D Basophils % 1.0 PT with INR 17.10 H INR 1.51 H Sodium Potassium Chloride Carbon Dioxide Anion Gap BUN Creatinine Cancelled Creat Clearance w eGFR POC Glucometer Random Glucose Specific [place] Cancelled Calcium Total Bilirubin AST ALT Alkaline Phosphatase Total Protein Albumin Urine Color Urine Appearance Urine pH Ur Specific [place] Urine Protein Urine Glucose (UA) Urine Ketones Urine Blood Urine Nitrite Urine Bilirubin Urine Urobilinogen Ur Leukocyte Esterase Ur Random Sodium Ur Random Potassium Ur Random Chloride Ur Random Urea Nitrogn Urine Creatinine Urine Butalbital Cancelled Ur Butalbital Confirm Cancelled Opiates Screen Urine Opiates Screen Cancelled Meperidine Cancelled Urine Normeperidine Cancelled U Normeperidine GC/MS Cancelled Urine Codeine Cancelled U Codeine Confrm GC/MS Cancelled Urine Morphine Cancelled Morphine Confirm GC/MS Cancelled Urine Hydrocodone Cancelled Ur Hydrocodone (GC/MS) Cancelled Urine Oxycodone Cancelled Ur Oxycodone GC/MS Cancelled Oxymorphone Confirm Cancelled Urine Oxymorphone Cancelled U Oxycodone/Oxymorphon Cancelled Methadone Screen Ur Methadone Cancelled Ur Methadone Confirm Cancelled Ur Hydromorphone Cancelled Ur Hydromorphone (GC/MS) Cancelled Urine Propoxyphene Cancelled U Propoxyphene/M GC/MS Cancelled Barbiturate Screen Ur Barbiturates Screen Cancelled Urine Barbiturates Cancelled Phencyclidine Screen Ur Phencyclidine (PCP) Cancelled Ur PCP Confirm (GC/MS) Cancelled Amphetamines Cancelled Amphetamines Grp GC/MS Cancelled Ur Amphetamines Screen Urine Amphetamine Cancelled Ur Amphetamines, Quant Cancelled Methamphetamine Cancelled Methamphetamine GC/MS Cancelled MDMA (Ecstasy) Screen Urine Amobarbital Cancelled Ur Amobarbital GC/MS Cancelled Urine Pentobarbital Cancelled U Pentobarbital GC/MS Cancelled Urine Phenobarbital Cancelled U Phenobarbital GC/MS Cancelled Urine Secobarbital Cancelled U Secobarbital GC/MS Cancelled Urine Alprazolam Cancelled U OH-Alprazolam GC/MS Cancelled Benzodiazepines Screen U Benzodiazepines Scrn Cancelled Urine Clonazepam Cancelled U 7-Amino Clonazep GC/MS Cancelled Ur Nordiazepam Cancelled Ur Nordiazepam GC/MS Cancelled Flurazepam Cancelled Flurazepam Confirm Cancelled Lorazepam Cancelled Urine Lorazepam Cancelled Ur Oxazepam Cancelled U Oxazepam Confm GC/MS Cancelled Urine Temazepam Cancelled Ur Temazepam (GC/MS) Cancelled Urine Triazolam Cancelled Ur Triazolam (GC/MS) Cancelled Meperidine (GC/MS) Cancelled Ur Meperidine Cancelled Cocaine Screen Cocaine & Metabolite Cancelled Urine Cocaine Cancelled Benzoylecgonine Cancelled Cannabinoids Cancelled Urine Cannabinoids Cancelled U Marijuana (THC) Screen Urine Marijuana (THC) Cancelled Urine Ethyl Alcohol Cancelled CMV IgM Ab Hepatitis A IgM Ab Hep Bs Antigen Hep B Core IgM Ab Hepatitis C Antibody 08/01/17 08/01/17 08/01/17 08:30 08:30 08:30 WBC RBC Hgb Hct MCV MCH MCHC RDW Plt Count MPV Neutrophils % Lymphocytes % Monocytes % Eosinophils % Basophils % PT with INR INR Sodium Potassium Chloride Carbon Dioxide Anion Gap BUN Creatinine Creat Clearance w eGFR POC Glucometer Random Glucose Specific [place] Calcium Total Bilirubin AST ALT Alkaline Phosphatase Total Protein Albumin Urine Color Straw Urine Appearance Clear Urine pH 6.0 Ur Specific [place] 1.008 Urine Protein Negative Urine Glucose (UA) Negative Urine Ketones Negative Urine Blood Negative Urine Nitrite Negative Urine Bilirubin Negative Urine Urobilinogen 2.0 Ur Leukocyte Esterase Negative Ur Random Sodium 115 Ur Random Potassium 13.0 Ur Random Chloride 116 Ur Random Urea Nitrogn Urine Creatinine 18.9 L Cancelled Urine Butalbital Ur Butalbital Confirm Opiates Screen Urine Opiates Screen Meperidine Urine Normeperidine U Normeperidine GC/MS Urine Codeine U Codeine Confrm GC/MS Urine Morphine Morphine Confirm GC/MS Urine Hydrocodone Ur Hydrocodone (GC/MS) Urine Oxycodone Ur Oxycodone GC/MS Oxymorphone Confirm Urine Oxymorphone U Oxycodone/Oxymorphon Methadone Screen Ur Methadone Ur Methadone Confirm Ur Hydromorphone Ur Hydromorphone (GC/MS) Urine Propoxyphene U Propoxyphene/M GC/MS Barbiturate Screen Ur Barbiturates Screen Urine Barbiturates Phencyclidine Screen Ur Phencyclidine (PCP) Ur PCP Confirm (GC/MS) Amphetamines Amphetamines Grp GC/MS Ur Amphetamines Screen Urine Amphetamine Ur Amphetamines, Quant Methamphetamine Methamphetamine GC/MS MDMA (Ecstasy) Screen Urine Amobarbital Ur Amobarbital GC/MS Urine Pentobarbital U Pentobarbital GC/MS Urine Phenobarbital U Phenobarbital GC/MS Urine Secobarbital U Secobarbital GC/MS Urine Alprazolam U [place]-Alprazolam GC/MS Benzodiazepines Screen U Benzodiazepines Scrn Urine Clonazepam U 7-Amino Clonazep GC/MS Ur Nordiazepam Ur Nordiazepam GC/MS Flurazepam Flurazepam Confirm Lorazepam Urine Lorazepam Ur Oxazepam U Oxazepam Confm GC/MS Urine Temazepam Ur Temazepam (GC/MS) Urine Triazolam Ur Triazolam (GC/MS) Meperidine (GC/MS) Ur Meperidine Cocaine Screen Cocaine & Metabolite Urine Cocaine Benzoylecgonine Cannabinoids Urine Cannabinoids U Marijuana (THC) Screen Urine Marijuana (THC) Urine Ethyl Alcohol CMV IgM Ab Hepatitis A IgM Ab Hep Bs Antigen Hep B Core IgM Ab Hepatitis C Antibody 08/01/17 08/01/17 08/01/17 08:30 11:41 13:00 WBC RBC Hgb Hct MCV MCH MCHC RDW Plt Count MPV Neutrophils % Lymphocytes % Monocytes % Eosinophils % Basophils % PT with INR INR Sodium Potassium Chloride Carbon Dioxide Anion Gap BUN Creatinine Creat Clearance w eGFR POC Glucometer 280 Random Glucose Specific [place] Calcium Total Bilirubin AST ALT Alkaline Phosphatase Total Protein Albumin Urine Color Urine Appearance Urine pH Ur Specific [place] Urine Protein Urine Glucose (UA) Urine Ketones Urine Blood Urine Nitrite Urine Bilirubin Urine Urobilinogen Ur Leukocyte Esterase Ur Random Sodium Ur Random Potassium Ur Random Chloride Ur Random Urea Nitrogn 249 Urine Creatinine Urine Butalbital Ur Butalbital Confirm Opiates Screen Negative Urine Opiates Screen Meperidine Urine Normeperidine U Normeperidine GC/MS Urine Codeine U Codeine Confrm GC/MS Urine Morphine Morphine Confirm GC/MS Urine Hydrocodone Ur Hydrocodone (GC/MS) Urine Oxycodone Ur Oxycodone GC/MS Oxymorphone Confirm Urine Oxymorphone U Oxycodone/Oxymorphon Methadone Screen Negative Ur Methadone Ur Methadone Confirm Ur Hydromorphone Ur Hydromorphone (GC/MS) Urine Propoxyphene U Propoxyphene/M GC/MS Barbiturate Screen Negative Ur Barbiturates Screen Urine Barbiturates Phencyclidine Screen Negative Ur Phencyclidine (PCP) Ur PCP Confirm (GC/MS) Amphetamines Amphetamines Grp GC/MS Ur Amphetamines Screen Negative Urine Amphetamine Ur Amphetamines, Quant Methamphetamine Methamphetamine GC/MS MDMA (Ecstasy) Screen Negative Urine Amobarbital Ur Amobarbital GC/MS Urine Pentobarbital U Pentobarbital GC/MS Urine Phenobarbital U Phenobarbital GC/MS Urine Secobarbital U Secobarbital GC/MS Urine Alprazolam U OH-Alprazolam GC/MS Benzodiazepines Screen Negative U Benzodiazepines Scrn Urine Clonazepam U 7-Amino Clonazep GC/MS Ur Nordiazepam Ur Nordiazepam GC/MS Flurazepam Flurazepam Confirm Lorazepam Urine Lorazepam Ur Oxazepam U Oxazepam Confm GC/MS Urine Temazepam Ur Temazepam (GC/MS) Urine Triazolam Ur Triazolam (GC/MS) Meperidine (GC/MS) Ur Meperidine Cocaine Screen Negative Cocaine & Metabolite Urine Cocaine Benzoylecgonine Cannabinoids Urine Cannabinoids U Marijuana (THC) Screen Negative Urine Marijuana (THC) Urine Ethyl Alcohol CMV IgM Ab Hepatitis A IgM Ab Hep Bs Antigen Hep B Core IgM Ab Hepatitis C Antibody Active Medications Generic Name Dose Route Start Last Admin Trade Name Freq PRN Reason Stop Dose Admin Albuterol Sulfate 1 amp 07/31/17 09:59 Ventolin 0.083% Nebulizer Soln - NEB Q4H PRN SHORT OF BREATH/WHEEZING Albuterol/Ipratropium 1 amp 07/31/17 09:59 Duoneb - NEB Q4H PRN SHORTNESS OF BREATH Carvedilol 6.25 mg 07/30/17 13:45 08/01/17 09:53 Coreg - PO 6.25 mg BID JOANNA Administration Donepezil HCl 10 mg 07/31/17 10:00 08/01/17 09:53 Aricept - PO 10 mg DAILY JOANNA Administration Furosemide 40 mg 07/30/17 14:00 08/01/17 06:21 Lasix Injection - IVPUSH 40 mg BID@0600,1400 JOANNA Administration Hydralazine HCl 10 mg 07/30/17 13:04 Apresoline Injection - IVPUSH Q6H PRN HYPERTENSION Insulin Aspart 1 vial 07/30/17 16:30 08/01/17 12:00 Novolog Vial Sliding Scale - SQ 4 unit ACHS JOANNA Administration Protocol Pantoprazole Sodium 40 mg 07/31/17 10:00 08/01/17 09:53 Protonix - PO 40 mg DAILY JOANNA Administration ASSESSMENT/PLAN: 87M w/ hx of diastolic CHF, HTN, NIDDM, and HLD who presented with acute SOB. #SOB -likely 2/2 acute CHF exacerbation possibly triggered by viral URI -lasix 40 IV BID -home chlorthalidone held -supplemental O2 PRN -CT chest: small effusion on right side with atelectasis/scarring at bases. -echo: LVEF of 35-40%. diastolic dysfunction, grade 2. moderate MR, TR, aortic sclerosis, AR. PA pressure of 32. #elevated LFTs- improving -likely 2/2 congestive hepatopathy from CHF w/ underlying hepatic disease -US abdomen: fatty liver vs. hepatocellular disease -CT chest: irregular liver edge, possibly 2/2 cirrhosis -GI on board, recs appreciated -hepatitis panel: all negative so far -f/u CEFERINO, SMA, [employer] -salicylates and tylenol levels wnl #acute on chronic kidney disease- improving -baseline creatinine of 1.4 -creatinine of 1.6 today -nephrology on board, recs appreciated. 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 D/C likely alesia Case discussed with attending, Dr. Reyes. -Mason Vera MD PGY1 Visit type - Emergency Visit Emergency Visit: Yes ED Registration Date: 07/30/17 Care time: The patient presented to the Emergency Department on the above date and was hospitalized for further evaluation of their emergent condition. - New Patient This patient is new to me today: No - Critical Care Critical Care patient: No - Discharge Referral Referred to [facility] No
--- NOTE | 2017-08-01 17:46 | PN ---
Progress Note, Physician Chief Complaint: Pt OOB in chair; feels better (no shortness of breath; less leg swelling).C?o constipation x a few days; asks for medicine for it. History of Present Illness: Mr. Real is an 87 yo male w/ pmh of HTN, DM, HLD, and diastolic CHF who presents w/ 1-2 days of shortness of breath with cough and runny nose. Patient is also complaining of abdominal pain over this same time period and chronic back pain. - Current Medication List Current Medications: Active Medications Albuterol Sulfate (Ventolin 0.083% Nebulizer Soln -) 1 amp NEB Q4H PRN PRN Reason: SHORT OF BREATH/WHEEZING Albuterol/Ipratropium (Duoneb -) 1 amp NEB Q4H PRN PRN Reason: SHORTNESS OF BREATH Carvedilol (Coreg -) 6.25 mg PO BID [facility] Last Admin: 08/01/17 09:53 Dose: 6.25 mg Donepezil HCl (Aricept -) 10 mg PO DAILY [facility] Last Admin: 08/01/17 09:53 Dose: 10 mg Furosemide (Lasix Injection -) 40 mg IVPUSH BID@0600,1400 [facility] Last Admin: 08/01/17 16:11 Dose: 40 mg Hydralazine HCl (Apresoline Injection -) 10 mg IVPUSH Q6H PRN PRN Reason: HYPERTENSION Insulin Aspart (Novolog Vial Sliding Scale -) 1 vial SQ ACHS [facility] PRN Reason: Protocol Last Admin: 08/01/17 16:26 Dose: 2 unit Pantoprazole Sodium (Protonix -) 40 mg PO DAILY [facility] Last Admin: 08/01/17 09:53 Dose: 40 mg - Objective Vital Signs: Vital Signs Temperature 97.1 F L 08/01/17 13:25 Pulse Rate 91 H 08/01/17 14:17 Respiratory Rate 22 08/01/17 14:00 Blood Pressure 124/68 08/01/17 13:25 O2 Sat by Pulse Oximetry (%) 97 08/01/17 14:17 Constitutional: Yes: Calm Eyes: Yes: WNL HENT: Yes: WNL Neck: Yes: WNL Cardiovascular: Yes: Tachycardia, Pulse Irregular (sinus , with sinus arrhythmia ) Respiratory: Yes: Diminished Gastrointestinal: Yes: Soft, Distention ...Rectal Exam: Yes: Deferred Genitourinary: No: Anuria Musculoskeletal: Yes: Muscle Weakness Extremities: Yes: Cool Edema: Yes Edema: LLE: 1+, RLE: 1+ Peripheral Pulses WNL: Yes Integumentary: Yes: WNL Neurological: Yes: Alert Psychiatric: Yes: Alert Labs: CBC, BMP 08/01/17 06:52 08/01/17 08:30 INR, PTT INR 1.51 (0.82-1.09) H 08/01/17 06:52 Abnormal Lab Results 08/01/17 08/01/17 08/01/17 06:52 06:52 06:52 RBC 3.88 L Hgb 10.9 L Hct 32.9 L Monocytes % 14.0 H Eosinophils % 4.7 H D PT with INR 17.10 H INR 1.51 H Potassium 3.4 L BUN 39 H Creatinine 1.6 H Random Glucose 150 H AST 339 H D ALT 605 H D Alkaline Phosphatase 189 H Albumin 3.0 L Urine Creatinine 08/01/17 08:30 RBC Hgb Hct Monocytes % Eosinophils % PT with INR INR Potassium BUN Creatinine Random Glucose AST ALT Alkaline Phosphatase Albumin Urine Creatinine 18.9 L - ....Imaging Chest X-ray: Image Reviewed (CHF) Problem List - Problems (1) Acute on chronic systolic (congestive) heart failure Assessment/Plan: Moderately severe LV dysfunction; abnormal diastolic compliance. Moderate AR, MR, TR; mild VT; mild pulmonary HTN. Add lisinopril 2.5 mg daily; f/u BUN/Cr carefully (presently has renal insufficiency); K needed repleting recently, as did Mg; f/u electrolytes. Decrease furosemide to 20 mg bid IVP. Is and Os, daily weight. If hydralazine is continued for BP and CHF, would add isordil. Code(s): I50.23 - ACUTE ON CHRONIC SYSTOLIC (CONGESTIVE) HEART FAILURE (2) CKD (chronic kidney disease) Code(s): N18.9 - CHRONIC KIDNEY DISEASE, UNSPECIFIED (3) Anemia Code(s): D64.9 - ANEMIA, UNSPECIFIED Qualifiers: Anemia type: unspecified type Qualified Code(s): D64.9 - Anemia, unspecified (4) Aortic insufficiency Assessment/Plan: ECHO: moderately severe LV dysfunction; moderate AR, MR, and TR; mild VT; mild pulmonary HTN. Code(s): I35.1 - NONRHEUMATIC AORTIC (VALVE) INSUFFICIENCY Qualifiers: Cardiac valve disease etiology: nonrheumatic Qualified Code(s): I35.1 - Nonrheumatic aortic (valve) insufficiency (5) Hyperlipidemia Code(s): E78.5 - HYPERLIPIDEMIA, UNSPECIFIED Qualifiers: Hyperlipidemia type: Pure hypercholesterolemia (6) Hypertension Code(s): I10 - ESSENTIAL (PRIMARY) HYPERTENSION Qualifiers: Hypertension type: essential hypertension (7) Liver cirrhosis Assessment/Plan: ?cirrhosis by CT; markedly elevated LFTs; abdominal distention. Code(s): K74.60 - UNSPECIFIED CIRRHOSIS OF LIVER
[2017-08-01] MEDS: LISINOPRIL 5 MG TABLET (FP) PO SCH (18:59)
[2017-08-02] MEDS ORDERED: FUROSEMIDE 40 MG/4 ML INJECTABLE VIAL IVPUSH SCH (06:00)
[2017-08-02] MEDS: INSULIN SLIDING SCALE (NOVOLOG) 1 VIAL SQ SCH ×2 (06:21→11:32)
[2017-08-02 08:20] LABS: BASO % 0.8 % (0-2.0); EOS % 6.8 % (0-4.5); HEMATOCRIT 33.4 % (35.4-49); LYMPH % 18.2 % (8-40); MCHC 32.9 g/dl (32.0-35.9); MEAN CELL VOLUME 85.2 fl (80-96); MEAN PLT VOLUME 8.8 fl (7.5-11.1); MONO % 16.5 % (3.8-10.2); NEUT % 57.7 % (42.8-82.8); PLATELET COUNT 184 K/MM3 (134-434); RBC 3.92 M/mm3 (4.00-5.60); RDW 16.2 % (11.9-15.9); WHITE BLOOD COUNT 5.5 K/mm3 (4.0-10.0)
[2017-08-02 08:33] LABS: ALBUMIN 3.2 g/dl (3.4-5.0); ANION GAP 10 (8-16); BILIRUBIN,TOTAL 1.2 mg/dL (0.2-1.0); BLOOD UREA NITROGEN 42 mg/dL (7-18); CALCIUM 8.3 mg/dL (8.5-10.1); CHLORIDE 102 mmol/L (98-107); CO2 27 mmol/L (21-32); CREATININE 1.7 mg/dL (0.7-1.3); GLUCOSE,RANDOM 169 mg/dL (74-106); MAGNESIUM 1.8 mg/dL (1.8-2.4); POTASSIUM 3.5 mmol/L (3.5-5.1); SGOT/AST 177 U/L (15-37); SODIUM 139 mmol/L (136-145)
[2017-08-02 08:35] LABS: ALK PHOS 172 U/L (45-117); TOT PROT 6.3 g/dl (6.4-8.2)
[2017-08-02 08:36] LABS: SGPT/ALT 480 U/L (12-78)
[2017-08-02] MEDS ORDERED: LISINOPRIL 5 MG TABLET (FP) PO SCH (10:00)
--- NOTE | 2017-08-02 10:03 | PN ---
Progress Note, Physician History of Present Illness: NO events. Comfortable. - Current Medication List Current Medications: Active Medications Albuterol Sulfate (Ventolin 0.083% Nebulizer Soln -) 1 amp NEB Q4H PRN PRN Reason: SHORT OF BREATH/WHEEZING Albuterol/Ipratropium (Duoneb -) 1 amp NEB Q4H PRN PRN Reason: SHORTNESS OF BREATH Carvedilol (Coreg -) 6.25 mg PO BID [facility] Last Admin: 08/01/17 21:20 Dose: 6.25 mg Donepezil HCl (Aricept -) 10 mg PO DAILY [facility] Last Admin: 08/01/17 09:53 Dose: 10 mg Furosemide (Lasix Injection -) 20 mg IVPUSH BID@0600,1400 [facility] Last Admin: 08/02/17 06:20 Dose: 20 mg Insulin Aspart (Novolog Vial Sliding Scale -) 1 vial SQ ACHS [facility] PRN Reason: Protocol Last Admin: 08/02/17 06:21 Dose: Not Given Lisinopril (Prinivil) 2.5 mg PO DAILY [facility] Last Admin: 08/01/17 18:59 Dose: 2.5 mg Pantoprazole Sodium (Protonix -) 40 mg PO DAILY [facility] Last Admin: 08/01/17 09:53 Dose: 40 mg - Objective Vital Signs: Vital Signs Temperature 98 F 08/02/17 06:00 Pulse Rate 72 08/02/17 06:00 Respiratory Rate 18 08/02/17 06:00 Blood Pressure 126/68 08/02/17 06:00 O2 Sat by Pulse Oximetry (%) 96 08/02/17 06:00 Constitutional: Yes: No Distress, Calm Eyes: Yes: Conjunctiva Clear HENT: Yes: Atraumatic Neck: Yes: Supple Gastrointestinal: Yes: Normal Bowel Sounds, Soft, Distention. No: Tenderness, Vomiting Neurological: Yes: Alert Labs: CBC, BMP 08/02/17 06:30 08/02/17 06:30 INR, PTT INR 1.51 (0.82-1.09) H 08/01/17 06:52 CBCD WBC 5.5 K/mm3 (4.0-10.0) 08/02/17 06:30 RBC 3.92 M/mm3 (4.00-5.60) L 08/02/17 06:30 Hgb 11.0 GM/dL (11.7-16.9) L 08/02/17 06:30 Hct 33.4 % (35.4-49) L 08/02/17 06:30 MCV 85.2 fl (80-96) 08/02/17 06:30 MCHC 32.9 g/dl (32.0-35.9) 08/02/17 06:30 RDW 16.2 % (11.9-15.9) H 08/02/17 06:30 Plt Count 184 K/MM3 (134-434) 08/02/17 06:30 MPV 8.8 fl (7.5-11.1) 08/02/17 06:30 CMP Sodium 139 mmol/L (136-145) 08/02/17 06:30 Potassium 3.5 mmol/L (3.5-5.1) 08/02/17 06:30 Chloride 102 mmol/L (98-107) 08/02/17 06:30 Carbon Dioxide 27 mmol/L (21-32) 08/02/17 06:30 Anion Gap 10 (8-16) 08/02/17 06:30 BUN 42 mg/dL (7-18) H 08/02/17 06:30 Creatinine 1.7 mg/dL (0.7-1.3) H 08/02/17 06:30 Creat Clearance w eGFR 38.14 (>60) 08/02/17 06:30 Calcium 8.3 mg/dL (8.5-10.1) L 08/02/17 06:30 Total Bilirubin 1.2 mg/dL (0.2-1.0) H 08/02/17 06:30 AST 177 U/L (15-37) H D 08/02/17 06:30 ALT 480 U/L (12-78) H D 08/02/17 06:30 Alkaline Phosphatase 172 U/L (45-117) H 08/02/17 06:30 Total Protein 6.3 g/dl (6.4-8.2) L 08/02/17 06:30 Albumin 3.2 g/dl (3.4-5.0) L 08/02/17 06:30 Problem List - Problems (1) CHF (congestive heart failure) Code(s): I50.9 - HEART FAILURE, UNSPECIFIED Qualifiers: Heart failure type: unspecified Heart failure chronicity: unspecified Qualified Code(s): I50.9 - Heart failure, unspecified (2) Fluid overload Code(s): E87.70 - FLUID OVERLOAD, UNSPECIFIED Qualifiers: Hypervolemia type: unspecified Qualified Code(s): E87.70 - Fluid overload, unspecified (3) Acute CHF Code(s): I50.9 - HEART FAILURE, UNSPECIFIED (4) Anemia Code(s): D64.9 - ANEMIA, UNSPECIFIED Qualifiers: Anemia type: unspecified type Qualified Code(s): D64.9 - Anemia, unspecified (5) Diastolic heart failure Code(s): I50.30 - UNSPECIFIED DIASTOLIC (CONGESTIVE) HEART FAILURE Qualifiers: Heart failure chronicity: acute on chronic Qualified Code(s): I50.33 - Acute on chronic diastolic (congestive) heart failure Assessment/Plan 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 Autoimmune panel negative R/o other common etiologies. Acute CHF management per primary team/cardiology Daily liver chem, PT/INR
[2017-08-02 10:17] VITALS: BP 108/53; PULSE 74; TEMP 98.1
[2017-08-02] MEDS: PANTOPRAZOLE 40 MG TABLET (FP) PO SCH (10:18)
[2017-08-02] MEDS: LISINOPRIL 5 MG TABLET (FP) PO SCH (10:18)
[2017-08-02] MEDS: CARVEDILOL 6.25 MG TABLET (FP) PO SCH (10:18)
[2017-08-02] MEDS: DONEPEZIL HCL 10 MG TABLET (FP) PO SCH (10:22)
--- NOTE | 2017-08-02 10:54 | PN ---
Teaching Attending Note Name of Resident: Je Real ATTENDING PHYSICIAN STATEMENT I saw and evaluated the patient. I reviewed the resident's note and discussed the case with the resident. I agree with the resident's findings and plan as documented. SUBJECTIVE:asymptomatic. deneis CP, SOB, fever, chills, cough, N/V/C/D OBJECTIVE: Last Vital Signs Temp Pulse Resp BP Pulse Ox 98.1 F 74 18 108/53 96 08/02/17 10:16 08/02/17 10:16 08/02/17 10:16 08/02/17 10:16 08/02/17 06:00 Intake & Output 07/30/17 07/31/17 08/01/17 08/02/17 23:59 23:59 23:59 23:59 Intake Total 400 550 300 0 Output Total 1750 2250 300 350 Balance -1350 -1700 0 -350 Weight 178 lb 170 lb 6 oz 168 lb 9.6 oz 165 lb 6 oz General NAD CV S1 S2 RRR Lungs CTA B/L no wheezing/rales/rhonchi Extremites no pedal edema ASSESSMENT AND PLAN: 87 yo M with PMHx of diastolic HF, HTN, NIDDM, admitted with dyspnea and abnormal LFTs 1. Acute on chronic diastolic/systolic Heart failure- clinically euvolemic. 13 lb weight loss since admission. lasix decreased to 20mg IV this AM. can transition to lasix 20mg po in addition to chlorathiadone. encouraged pt (with present) to weigh himself daily. if noticed >2-3 lb weight gain to notify coil repair technician of change and may require to take extra of water pill. is scheduled to f/u with cardiology next week for possible stress test as outpatient. cont coreg 2. Transaminitis- likely passive hepatic congestion with underlying hepatocellular disease. now trending down. full workup pending. GI on board. may require Bx in the future as outpatient to further characterize. hold statin at this time 3. Hypokalmeia- resolved 4. ARJUN- pre-renal vs retention FeNA 7%. baseline Cr 1.4. renal/bladder u/s suboptimal study. urinating freely. low post-void residual. slight bump up with lasix. switching to po. can f/u with PMD to monitor Cr. 5. Severe Aortic regurgitation 6. HTN-now improved. 7. NIDDM- controlled. cont iss,bgm. hold oral agents 8. DVT ppx- hep sq 9. ambulated well with PT. d/c home today. counseled on medication changes with present. verbalized understanding and agreement with plan.
--- NOTE | 2017-08-02 13:24 | PN ---
Progress Note, Physician History of Present Illness: Pt seen and examined at bedside. He is awake and alert. He denies shortness of breath. - Current Medication List Current Medications: Active Medications Albuterol Sulfate (Ventolin 0.083% Nebulizer Soln -) 1 amp NEB Q4H PRN PRN Reason: SHORT OF BREATH/WHEEZING Albuterol/Ipratropium (Duoneb -) 1 amp NEB Q4H PRN PRN Reason: SHORTNESS OF BREATH Carvedilol (Coreg -) 6.25 mg PO BID [facility] Last Admin: 08/02/17 10:18 Dose: 6.25 mg Donepezil HCl (Aricept -) 10 mg PO DAILY [facility] Last Admin: 08/02/17 10:22 Dose: 10 mg Furosemide (Lasix Injection -) 20 mg IVPUSH BID@0600,1400 [facility] Last Admin: 08/02/17 06:20 Dose: 20 mg Insulin Aspart (Novolog Vial Sliding Scale -) 1 vial SQ ACHS [facility] PRN Reason: Protocol Last Admin: 08/02/17 11:32 Dose: 8 unit Lisinopril (Prinivil) 2.5 mg PO DAILY [facility] Last Admin: 08/02/17 10:18 Dose: 2.5 mg Pantoprazole Sodium (Protonix -) 40 mg PO DAILY [facility] Last Admin: 08/02/17 10:18 Dose: 40 mg - Objective Vital Signs: Vital Signs Temperature 98.1 F 08/02/17 10:16 Pulse Rate 74 08/02/17 10:16 Respiratory Rate 18 08/02/17 10:16 Blood Pressure 108/53 08/02/17 10:16 O2 Sat by Pulse Oximetry (%) 96 08/02/17 06:00 Constitutional: Yes: Calm Eyes: Yes: Conjunctiva Clear HENT: Yes: Atraumatic Cardiovascular: Yes: S1, S2 Respiratory: Yes: CTA Bilaterally Gastrointestinal: Yes: Normal Bowel Sounds, Soft Genitourinary: Yes: WNL Musculoskeletal: Yes: WNL Edema: No Neurological: Yes: Oriented Psychiatric: Yes: Oriented Labs: CBC, BMP 08/02/17 06:30 08/02/17 06:30 INR, PTT INR 1.51 (0.82-1.09) H 08/01/17 06:52 Problem List - Problems (1) CKD (chronic kidney disease) Code(s): N18.9 - CHRONIC KIDNEY DISEASE, UNSPECIFIED (2) CHF (congestive heart failure) Code(s): I50.9 - HEART FAILURE, UNSPECIFIED Qualifiers: Heart failure type: unspecified Heart failure chronicity: unspecified Qualified Code(s): I50.9 - Heart failure, unspecified (3) Hypertension Code(s): I10 - ESSENTIAL (PRIMARY) HYPERTENSION Qualifiers: Hypertension type: essential hypertension Assessment/Plan Current Medications Generic Name Dose Route Start Last Admin Trade Name Freq PRN Reason Stop Dose Admin Albuterol Sulfate 1 amp 07/31/17 09:59 Ventolin 0.083% Nebulizer Soln - NEB Q4H PRN SHORT OF BREATH/WHEEZING Albuterol/Ipratropium 1 amp 07/31/17 09:59 Duoneb - NEB Q4H PRN SHORTNESS OF BREATH Carvedilol 6.25 mg 07/30/17 13:45 08/02/17 10:18 Coreg - PO 6.25 mg BID JOANNA Administration Donepezil HCl 10 mg 07/31/17 10:00 08/02/17 10:22 Aricept - PO 10 mg DAILY [facility]NA Administration Furosemide 20 mg 08/02/17 06:00 08/02/17 06:20 Lasix Injection - IVPUSH 20 mg BID@0600,1400 JOANNA Administration Insulin Aspart 1 vial 07/30/17 16:30 08/02/17 11:32 Novolog Vial Sliding Scale - SQ 8 unit ACHS JOANNA Administration Protocol Lisinopril 2.5 mg 08/01/17 18:45 08/02/17 10:18 Prinivil PO 2.5 mg DAILY [facility] Administration Pantoprazole Sodium 40 mg 07/31/17 10:00 08/02/17 10:18 Protonix - PO 40 mg DAILY [facility] Administration Impression 1. CKD 2. ARJUN 3. CHF 4. HTN 5. DM 6. GERD Plan - pt will be discharged on PO lasix - pt will come to office for renal workup - cont with robert - potassium improved - will follow Dr Smith
[2017-08-02 14:14] LABS: HBSAG SCREEN Negative (Negative); HEP A AB, IGM Negative (Negative); HEP B CORE AB, TOT Positive (Negative)
--- NOTE | 2017-08-04 14:51 | DS ---
Physical Exam: SUBJECTIVE: Patient seen and examined No acute events overnight. Pt denies SOB, cough, chest pain, abdominal pain, n/v /d/c, and dysuria. OBJECTIVE: Vital Signs Temperature 98.1 F 08/02/17 10:16 Pulse Rate 74 08/02/17 10:16 Respiratory Rate 18 08/02/17 10:16 Blood Pressure 108/53 08/02/17 10:16 O2 Sat by Pulse Oximetry (%) 96 08/02/17 10:15 PHYSICAL EXAM GENERAL: elderly male, awake, alert, and fully oriented, in no acute distress. HEENT: NC, AT LUNGS: nor rales, no rhonchi or wheezing HEART: Regular rate and rhythm, normal S1 and S2 without murmur, rub or gallop. ABDOMEN: soft, NT, ND MUSCULOSKELETAL: no LE edema NEUROLOGICAL: Cranial nerves II-XII intact. Normal speech. LABS Laboratory Tests 07/29/17 07/29/17 07/29/17 18:20 18:20 19:45 WBC 7.1 D RBC 4.06 Hgb 11.3 L Hct 35.0 L MCV 86.3 MCH 27.8 MCHC 32.3 RDW 16.3 H Plt Count 198 MPV 9.1 Neutrophils % 71.6 Lymphocytes % 13.4 Monocytes % 12.6 H Eosinophils % 1.5 Basophils % 0.9 PT with INR INR Sodium 141 Potassium 4.6 Chloride 105 Carbon Dioxide 22 Anion Gap 14 BUN 28 H D Creatinine 1.4 H Creat Clearance w eGFR 47.72 POC Glucometer Random Glucose 171 H D Specific [place] Calcium 8.9 Phosphorus Magnesium Total Bilirubin 0.9 D Direct Bilirubin AST 85 H D ALT 79 H D Alkaline Phosphatase 164 H D Creatine Kinase 201 Creatine Kinase Index 2.8 CK-MB (CK-2) 5.641 H Troponin I 0.06 H D B-Natriuretic Peptide 54859.17 H Total Protein 7.3 Albumin 3.7 Urine Color Urine Appearance Urine pH Ur Specific [place] Urine Protein Urine Glucose (UA) Urine Ketones Urine Blood Urine Nitrite Urine Bilirubin Urine Urobilinogen Ur Leukocyte Esterase Ur Random Sodium Ur Random Potassium Ur Random Chloride Ur Random Urea Nitrogn Urine Creatinine Urine Butalbital Ur Butalbital Confirm Salicylates Opiates Screen Urine Opiates Screen Meperidine Urine Normeperidine U Normeperidine GC/MS Urine Codeine U Codeine Confrm GC/MS Urine Morphine Morphine Confirm GC/MS Urine Hydrocodone Ur Hydrocodone (GC/MS) Urine Oxycodone Ur Oxycodone GC/MS Oxymorphone Confirm Urine Oxymorphone U Oxycodone/Oxymorphon Methadone Screen Ur Methadone Ur Methadone Confirm Ur Hydromorphone Ur Hydromorphone (GC/MS) Urine Propoxyphene U Propoxyphene/M GC/MS Acetaminophen Barbiturate Screen Ur Barbiturates Screen Urine Barbiturates Phencyclidine Screen Ur Phencyclidine (PCP) Ur PCP Confirm (GC/MS) Amphetamines Amphetamines Grp GC/MS Ur Amphetamines Screen Urine Amphetamine Ur Amphetamines, Quant Methamphetamine Methamphetamine GC/MS MDMA (Ecstasy) Screen Urine Amobarbital Ur Amobarbital GC/MS Urine Pentobarbital U Pentobarbital GC/MS Urine Phenobarbital U Phenobarbital GC/MS Urine Secobarbital U Secobarbital GC/MS Urine Alprazolam U OH-Alprazolam GC/MS Benzodiazepines Screen U Benzodiazepines Scrn Urine Clonazepam U 7-Amino Clonazep GC/MS Ur Nordiazepam Ur Nordiazepam GC/MS Flurazepam Flurazepam Confirm Lorazepam Urine Lorazepam Ur Oxazepam U Oxazepam Confm GC/MS Urine Temazepam Ur Temazepam (GC/MS) Urine Triazolam Ur Triazolam (GC/MS) Meperidine (GC/MS) Ur Meperidine Cocaine Screen Cocaine & Metabolite Urine Cocaine Benzoylecgonine Cannabinoids Urine Cannabinoids U Marijuana (THC) Screen Urine Marijuana (THC) Urine Ethyl Alcohol CFEERINO Screen Smooth Musc &EXCELLENCE COACH Intrp CMV IgM Ab Hepatitis A IgM Ab Hep A IgM Ab Confirm Hepatitis A Ab Total Hep Bs Antigen Hep Bs Antibody Hep B Core Total Ab Hep B Core IgM Ab Hepatitis C Antibody 07/30/17 07/30/17 07/30/17 02:28 06:01 06:35 WBC 7.0 RBC 3.93 L Hgb 11.0 L Hct 33.7 L MCV 85.9 MCH 28.0 MCHC 32.6 RDW 16.1 H Plt Count 186 MPV 9.2 Neutrophils % 75.9 Lymphocytes % 11.9 Monocytes % 11.1 H Eosinophils % 0.5 Basophils % 0.6 PT with INR INR Sodium Potassium Chloride Carbon Dioxide Anion Gap BUN Creatinine Creat Clearance w eGFR POC Glucometer 178 Random Glucose Specific [place] Calcium Phosphorus Magnesium Total Bilirubin Direct Bilirubin AST ALT Alkaline Phosphatase Creatine Kinase Creatine Kinase Index CK-MB (CK-2) Troponin I 0.11 H D B-Natriuretic Peptide Total Protein Albumin Urine Color Urine Appearance Urine pH Ur Specific [place] Urine Protein Urine Glucose (UA) Urine Ketones Urine Blood Urine Nitrite Urine Bilirubin Urine Urobilinogen Ur Leukocyte Esterase Ur Random Sodium Ur Random Potassium Ur Random Chloride Ur Random Urea Nitrogn Urine Creatinine Urine Butalbital Ur Butalbital Confirm Salicylates Opiates Screen Urine Opiates Screen Meperidine Urine Normeperidine U Normeperidine GC/MS Urine Codeine U Codeine Confrm GC/MS Urine Morphine Morphine Confirm GC/MS Urine Hydrocodone Ur Hydrocodone (GC/MS) Urine Oxycodone Ur Oxycodone GC/MS Oxymorphone Confirm Urine Oxymorphone U Oxycodone/Oxymorphon Methadone Screen Ur Methadone Ur Methadone Confirm Ur Hydromorphone Ur Hydromorphone (GC/MS) Urine Propoxyphene U Propoxyphene/M GC/MS Acetaminophen Barbiturate Screen Ur Barbiturates Screen Urine Barbiturates Phencyclidine Screen Ur Phencyclidine (PCP) Ur PCP Confirm (GC/MS) Amphetamines Amphetamines Grp GC/MS Ur Amphetamines Screen Urine Amphetamine Ur Amphetamines, Quant Methamphetamine Methamphetamine GC/MS MDMA (Ecstasy) Screen Urine Amobarbital Ur Amobarbital GC/MS Urine Pentobarbital U Pentobarbital GC/MS Urine Phenobarbital U Phenobarbital GC/MS Urine Secobarbital U Secobarbital GC/MS Urine Alprazolam U OH-Alprazolam GC/MS Benzodiazepines Screen U Benzodiazepines Scrn Urine Clonazepam U 7-Amino Clonazep GC/MS Ur Nordiazepam Ur Nordiazepam GC/MS Flurazepam Flurazepam Confirm Lorazepam Urine Lorazepam Ur Oxazepam U Oxazepam Confm GC/MS Urine Temazepam Ur Temazepam (GC/MS) Urine Triazolam Ur Triazolam (GC/MS) Meperidine (GC/MS) Ur Meperidine Cocaine Screen Cocaine & Metabolite Urine Cocaine Benzoylecgonine Cannabinoids Urine Cannabinoids U Marijuana (THC) Screen Urine Marijuana (THC) Urine Ethyl Alcohol CEFERINO Screen Smooth Musc &EXCELLENCE COACH Intrp CMV IgM Ab Hepatitis A IgM Ab Hep A IgM Ab Confirm Hepatitis A Ab Total Hep Bs Antigen Hep Bs Antibody Hep B Core Total Ab Hep B Core IgM Ab Hepatitis C Antibody 07/30/17 07/30/17 07/30/17 06:35 06:35 07:11 WBC RBC Hgb Hct MCV MCH MCHC RDW Plt Count MPV Neutrophils % Lymphocytes % Monocytes % Eosinophils % Basophils % PT with INR 19.70 H INR 1.74 H D Sodium 140 Potassium 4.3 Chloride 100 Carbon Dioxide 21 Anion Gap 19 H BUN 29 H Creatinine 1.6 H Creat Clearance w eGFR 40.90 POC Glucometer Random Glucose 182 H Specific [place] Calcium 9.7 Phosphorus 4.7 D Magnesium 1.4 L D Total Bilirubin 1.5 H D Direct Bilirubin AST 526 H D ALT 473 H D Alkaline Phosphatase 213 H D Creatine Kinase Creatine Kinase Index CK-MB (CK-2) Troponin I 0.10 H Cancelled B-Natriuretic Peptide Total Protein 7.2 Albumin 3.5 Urine Color Urine Appearance Urine pH Ur Specific [place] Urine Protein Urine Glucose (UA) Urine Ketones Urine Blood Urine Nitrite Urine Bilirubin Urine Urobilinogen Ur Leukocyte Esterase Ur Random Sodium Ur Random Potassium Ur Random Chloride Ur Random Urea Nitrogn Urine Creatinine Urine Butalbital Ur Butalbital Confirm Salicylates Opiates Screen Urine Opiates Screen Meperidine Urine Normeperidine U Normeperidine GC/MS Urine Codeine U Codeine Confrm GC/MS Urine Morphine Morphine Confirm GC/MS Urine Hydrocodone Ur Hydrocodone (GC/MS) Urine Oxycodone Ur Oxycodone GC/MS Oxymorphone Confirm Urine Oxymorphone U Oxycodone/Oxymorphon Methadone Screen Ur Methadone Ur Methadone Confirm Ur Hydromorphone Ur Hydromorphone (GC/MS) Urine Propoxyphene U Propoxyphene/M GC/MS Acetaminophen Barbiturate Screen Ur Barbiturates Screen Urine Barbiturates Phencyclidine Screen Ur Phencyclidine (PCP) Ur PCP Confirm (GC/MS) Amphetamines Amphetamines Grp GC/MS Ur Amphetamines Screen Urine Amphetamine Ur Amphetamines, Quant Methamphetamine Methamphetamine GC/MS MDMA (Ecstasy) Screen Urine Amobarbital Ur Amobarbital GC/MS Urine Pentobarbital U Pentobarbital GC/MS Urine Phenobarbital U Phenobarbital GC/MS Urine Secobarbital U Secobarbital GC/MS Urine Alprazolam U OH-Alprazolam GC/MS Benzodiazepines Screen U Benzodiazepines Scrn Urine Clonazepam U 7-Amino Clonazep GC/MS Ur Nordiazepam Ur Nordiazepam GC/MS Flurazepam Flurazepam Confirm Lorazepam Urine Lorazepam Ur Oxazepam U Oxazepam Confm GC/MS Urine Temazepam Ur Temazepam (GC/MS) Urine Triazolam Ur Triazolam (GC/MS) Meperidine (GC/MS) Ur Meperidine Cocaine Screen Cocaine & Metabolite Urine Cocaine Benzoylecgonine Cannabinoids Urine Cannabinoids U Marijuana (THC) Screen Urine Marijuana (THC) Urine Ethyl Alcohol CEFERINO Screen Smooth Musc &EXCELLENCE COACH Intrp CMV IgM Ab Hepatitis A IgM Ab Hep A IgM Ab Confirm Hepatitis A Ab Total Hep Bs Antigen Hep Bs Antibody Hep B Core Total Ab Hep B Core IgM Ab Hepatitis C Antibody 07/30/17 07/30/17 07/30/17 11:40 16:46 23:01 WBC RBC Hgb Hct MCV MCH MCHC RDW Plt Count MPV Neutrophils % Lymphocytes % Monocytes % Eosinophils % Basophils % PT with INR INR Sodium Potassium Chloride Carbon Dioxide Anion Gap BUN Creatinine Creat Clearance w eGFR POC Glucometer 265 181 182 Random Glucose Specific [place] Calcium Phosphorus Magnesium Total Bilirubin Direct Bilirubin AST ALT Alkaline Phosphatase Creatine Kinase Creatine Kinase Index CK-MB (CK-2) Troponin I B-Natriuretic Peptide Total Protein Albumin Urine Color Urine Appearance Urine pH Ur Specific [place] Urine Protein Urine Glucose (UA) Urine Ketones Urine Blood Urine Nitrite Urine Bilirubin Urine Urobilinogen Ur Leukocyte Esterase Ur Random Sodium Ur Random Potassium Ur Random Chloride Ur Random Urea Nitrogn Urine Creatinine Urine Butalbital Ur Butalbital Confirm Salicylates Opiates Screen Urine Opiates Screen Meperidine Urine Normeperidine U Normeperidine GC/MS Urine Codeine U Codeine Confrm GC/MS Urine Morphine Morphine Confirm GC/MS Urine Hydrocodone Ur Hydrocodone (GC/MS) Urine Oxycodone Ur Oxycodone GC/MS Oxymorphone Confirm Urine Oxymorphone U Oxycodone/Oxymorphon Methadone Screen Ur Methadone Ur Methadone Confirm Ur Hydromorphone Ur Hydromorphone (GC/MS) Urine Propoxyphene U Propoxyphene/M GC/MS Acetaminophen Barbiturate Screen Ur Barbiturates Screen Urine Barbiturates Phencyclidine Screen Ur Phencyclidine (PCP) Ur PCP Confirm (GC/MS) Amphetamines Amphetamines Grp GC/MS Ur Amphetamines Screen Urine Amphetamine Ur Amphetamines, Quant Methamphetamine Methamphetamine GC/MS MDMA (Ecstasy) Screen Urine Amobarbital Ur Amobarbital GC/MS Urine Pentobarbital U Pentobarbital GC/MS Urine Phenobarbital U Phenobarbital GC/MS Urine Secobarbital U Secobarbital GC/MS Urine Alprazolam U OH-Alprazolam GC/MS Benzodiazepines Screen U Benzodiazepines Scrn Urine Clonazepam U 7-Amino Clonazep GC/MS Ur Nordiazepam Ur Nordiazepam GC/MS Flurazepam Flurazepam Confirm Lorazepam Urine Lorazepam Ur Oxazepam U Oxazepam Confm GC/MS Urine Temazepam Ur Temazepam (GC/MS) Urine Triazolam Ur Triazolam (GC/MS) Meperidine (GC/MS) Ur Meperidine Cocaine Screen Cocaine & Metabolite Urine Cocaine Benzoylecgonine Cannabinoids Urine Cannabinoids U Marijuana (THC) Screen Urine Marijuana (THC) Urine Ethyl Alcohol CEFERINO Screen Smooth Musc &EXCELLENCE COACH Intrp CMV IgM Ab Hepatitis A IgM Ab Hep A IgM Ab Confirm Hepatitis A Ab Total Hep Bs Antigen Hep Bs Antibody Hep B Core Total Ab Hep B Core IgM Ab Hepatitis C Antibody 07/31/17 07/31/17 07/31/17 06:15 06:25 06:25 WBC 5.8 RBC 3.78 L Hgb 10.6 L Hct 31.9 L MCV 84.3 MCH 28.2 MCHC 33.4 RDW 16.2 H Plt Count 167 MPV 8.9 Neutrophils % 76.6 Lymphocytes % 10.9 Monocytes % 10.5 H Eosinophils % 1.3 D Basophils % 0.7 PT with INR INR Sodium 140 Potassium 3.8 Chloride 99 Carbon Dioxide 26 D Anion Gap 15 BUN 35 H D Creatinine 1.8 H Creat Clearance w eGFR POC Glucometer 174 Random Glucose 170 H Specific [place] Calcium 8.9 Phosphorus 4.0 Magnesium 1.6 L Total Bilirubin 1.2 H Direct Bilirubin 0.6 H D AST 838 H D ALT 808 H D Alkaline Phosphatase 207 H Creatine Kinase Creatine Kinase Index CK-MB (CK-2) Troponin I B-Natriuretic Peptide Total Protein 6.5 Albumin 3.2 L Urine Color Urine Appearance Urine pH Ur Specific [place] Urine Protein Urine Glucose (UA) Urine Ketones Urine Blood Urine Nitrite Urine Bilirubin Urine Urobilinogen Ur Leukocyte Esterase Ur Random Sodium Ur Random Potassium Ur Random Chloride Ur Random Urea Nitrogn Urine Creatinine Urine Butalbital Ur Butalbital Confirm Salicylates < 1.700 Opiates Screen Urine Opiates Screen Meperidine Urine Normeperidine U Normeperidine GC/MS Urine Codeine U Codeine Confrm GC/MS Urine Morphine Morphine Confirm GC/MS Urine Hydrocodone Ur Hydrocodone (GC/MS) Urine Oxycodone Ur Oxycodone GC/MS Oxymorphone Confirm Urine Oxymorphone U Oxycodone/Oxymorphon Methadone Screen Ur Methadone Ur Methadone Confirm Ur Hydromorphone Ur Hydromorphone (GC/MS) Urine Propoxyphene U Propoxyphene/M GC/MS Acetaminophen < 2.000 Barbiturate Screen Ur Barbiturates Screen Urine Barbiturates Phencyclidine Screen Ur Phencyclidine (PCP) Ur PCP Confirm (GC/MS) Amphetamines Amphetamines Grp GC/MS Ur Amphetamines Screen Urine Amphetamine Ur Amphetamines, Quant Methamphetamine Methamphetamine GC/MS MDMA (Ecstasy) Screen Urine Amobarbital Ur Amobarbital GC/MS Urine Pentobarbital U Pentobarbital GC/MS Urine Phenobarbital U Phenobarbital GC/MS Urine Secobarbital U Secobarbital GC/MS Urine Alprazolam U OH-Alprazolam GC/MS Benzodiazepines Screen U Benzodiazepines Scrn Urine Clonazepam U 7-Amino Clonazep GC/MS Ur Nordiazepam Ur Nordiazepam GC/MS Flurazepam Flurazepam Confirm Lorazepam Urine Lorazepam Ur Oxazepam U Oxazepam Confm GC/MS Urine Temazepam Ur Temazepam (GC/MS) Urine Triazolam Ur Triazolam (GC/MS) Meperidine (GC/MS) Ur Meperidine Cocaine Screen Cocaine & Metabolite Urine Cocaine Benzoylecgonine Cannabinoids Urine Cannabinoids U Marijuana (THC) Screen Urine Marijuana (THC) Urine Ethyl Alcohol CEFERINO Screen Smooth Musc &EXCELLENCE COACH Intrp CMV IgM Ab Hepatitis A IgM Ab Hep A IgM Ab Confirm Hepatitis A Ab Total Hep Bs Antigen Hep Bs Antibody Hep B Core Total Ab Hep B Core IgM Ab Hepatitis C Antibody 07/31/17 07/31/17 07/31/17 06:25 06:25 06:25 WBC RBC Hgb Hct MCV MCH MCHC RDW Plt Count MPV Neutrophils % Lymphocytes % Monocytes % Eosinophils % Basophils % PT with INR 20.50 H INR 1.81 H Sodium Potassium Chloride Carbon Dioxide Anion Gap BUN Creatinine Creat Clearance w eGFR POC Glucometer Random Glucose Specific [place] Calcium Phosphorus Magnesium Total Bilirubin Direct Bilirubin AST ALT Alkaline Phosphatase Creatine Kinase Creatine Kinase Index CK-MB (CK-2) Troponin I B-Natriuretic Peptide Total Protein Albumin Urine Color Urine Appearance Urine pH Ur Specific [place] Urine Protein Urine Glucose (UA) Urine Ketones Urine Blood Urine Nitrite Urine Bilirubin Urine Urobilinogen Ur Leukocyte Esterase Ur Random Sodium Ur Random Potassium Ur Random Chloride Ur Random Urea Nitrogn Urine Creatinine Urine Butalbital Ur Butalbital Confirm Salicylates Opiates Screen Urine Opiates Screen Meperidine Urine Normeperidine U Normeperidine GC/MS Urine Codeine U Codeine Confrm GC/MS Urine Morphine Morphine Confirm GC/MS Urine Hydrocodone Ur Hydrocodone (GC/MS) Urine Oxycodone Ur Oxycodone GC/MS Oxymorphone Confirm Urine Oxymorphone U Oxycodone/Oxymorphon Methadone Screen Ur Methadone Ur Methadone Confirm Ur Hydromorphone Ur Hydromorphone (GC/MS) Urine Propoxyphene U Propoxyphene/M GC/MS Acetaminophen Barbiturate Screen Ur Barbiturates Screen Urine Barbiturates Phencyclidine Screen Ur Phencyclidine (PCP) Ur PCP Confirm (GC/MS) Amphetamines Amphetamines Grp GC/MS Ur Amphetamines Screen Urine Amphetamine Ur Amphetamines, Quant Methamphetamine Methamphetamine GC/MS MDMA (Ecstasy) Screen Urine Amobarbital Ur Amobarbital GC/MS Urine Pentobarbital U Pentobarbital GC/MS Urine Phenobarbital U Phenobarbital GC/MS Urine Secobarbital U Secobarbital GC/MS Urine Alprazolam U OH-Alprazolam GC/MS Benzodiazepines Screen U Benzodiazepines Scrn Urine Clonazepam U 7-Amino Clonazep GC/MS Ur Nordiazepam Ur Nordiazepam GC/MS Flurazepam Flurazepam Confirm Lorazepam Urine Lorazepam Ur Oxazepam U Oxazepam Confm GC/MS Urine Temazepam Ur Temazepam (GC/MS) Urine Triazolam Ur Triazolam (GC/MS) Meperidine (GC/MS) Ur Meperidine Cocaine Screen Cocaine & Metabolite Urine Cocaine Benzoylecgonine Cannabinoids Urine Cannabinoids U Marijuana (THC) Screen Urine Marijuana (THC) Urine Ethyl Alcohol CEFERINO Screen Negative Smooth Musc &EXCELLENCE COACH Intrp 9 CMV IgM Ab < 30.0 Hepatitis A IgM Ab Negative Hep A IgM Ab Confirm Negative Hepatitis A Ab Total Positive H Hep Bs Antigen Negative Negative Hep Bs Antibody Reactive Hep B Core Total Ab Positive H Hep B Core IgM Ab Negative Hepatitis C Antibody <0.1 07/31/17 07/31/17 07/31/17 06:25 11:21 16:44 WBC RBC Hgb Hct MCV MCH MCHC RDW Plt Count MPV Neutrophils % Lymphocytes % Monocytes % Eosinophils % Basophils % PT with INR INR Sodium Potassium Chloride Carbon Dioxide Anion Gap BUN Creatinine Creat Clearance w eGFR POC Glucometer 227 270 Random Glucose Specific [place] Calcium Phosphorus Magnesium Total Bilirubin Direct Bilirubin AST ALT Alkaline Phosphatase Creatine Kinase Creatine Kinase Index CK-MB (CK-2) Troponin I B-Natriuretic Peptide Total Protein Albumin Urine Color Urine Appearance Urine pH Ur Specific [place] Urine Protein Urine Glucose (UA) Urine Ketones Urine Blood Urine Nitrite Urine Bilirubin Urine Urobilinogen Ur Leukocyte Esterase Ur Random Sodium Ur Random Potassium Ur Random Chloride Ur Random Urea Nitrogn Urine Creatinine Urine Butalbital Ur Butalbital Confirm Salicylates Cancelled Opiates Screen Urine Opiates Screen Meperidine Urine Normeperidine U Normeperidine GC/MS Urine Codeine U Codeine Confrm GC/MS Urine Morphine Morphine Confirm GC/MS Urine Hydrocodone Ur Hydrocodone (GC/MS) Urine Oxycodone Ur Oxycodone GC/MS Oxymorphone Confirm Urine Oxymorphone U Oxycodone/Oxymorphon Methadone Screen Ur Methadone Ur Methadone Confirm Ur Hydromorphone Ur Hydromorphone (GC/MS) Urine Propoxyphene U Propoxyphene/M GC/MS Acetaminophen Cancelled Barbiturate Screen Ur Barbiturates Screen Urine Barbiturates Phencyclidine Screen Ur Phencyclidine (PCP) Ur PCP Confirm (GC/MS) Amphetamines Amphetamines Grp GC/MS Ur Amphetamines Screen Urine Amphetamine Ur Amphetamines, Quant Methamphetamine Methamphetamine GC/MS MDMA (Ecstasy) Screen Urine Amobarbital Ur Amobarbital GC/MS Urine Pentobarbital U Pentobarbital GC/MS Urine Phenobarbital U Phenobarbital GC/MS Urine Secobarbital U Secobarbital GC/MS Urine Alprazolam U OH-Alprazolam GC/MS Benzodiazepines Screen U Benzodiazepines Scrn Urine Clonazepam U 7-Amino Clonazep GC/MS Ur Nordiazepam Ur Nordiazepam GC/MS Flurazepam Flurazepam Confirm Lorazepam Urine Lorazepam Ur Oxazepam U Oxazepam Confm GC/MS Urine Temazepam Ur Temazepam (GC/MS) Urine Triazolam Ur Triazolam (GC/MS) Meperidine (GC/MS) Ur Meperidine Cocaine Screen Cocaine & Metabolite Urine Cocaine Benzoylecgonine Cannabinoids Urine Cannabinoids U Marijuana (THC) Screen Urine Marijuana (THC) Urine Ethyl Alcohol CEFERINO Screen Smooth Musc &EXCELLENCE COACH Intrp CMV IgM Ab Hepatitis A IgM Ab Hep A IgM Ab Confirm Hepatitis A Ab Total Hep Bs Antigen Hep Bs Antibody Hep B Core Total Ab Hep B Core IgM Ab Hepatitis C Antibody 07/31/17 08/01/17 08/01/17 21:42 06:00 06:06 WBC RBC Hgb Hct MCV MCH MCHC RDW Plt Count MPV Neutrophils % Lymphocytes % Monocytes % Eosinophils % Basophils % PT with INR INR Sodium Potassium Chloride Carbon Dioxide Anion Gap BUN Creatinine Creat Clearance w eGFR POC Glucometer 137 147 Random Glucose Specific [place] Calcium Phosphorus Magnesium 1.9 Total Bilirubin Direct Bilirubin AST ALT Alkaline Phosphatase Creatine Kinase Creatine Kinase Index CK-MB (CK-2) Troponin I B-Natriuretic Peptide Total Protein Albumin Urine Color Urine Appearance Urine pH Ur Specific [place] Urine Protein Urine Glucose (UA) Urine Ketones Urine Blood Urine Nitrite Urine Bilirubin Urine Urobilinogen Ur Leukocyte Esterase Ur Random Sodium Ur Random Potassium Ur Random Chloride Ur Random Urea Nitrogn Urine Creatinine Urine Butalbital Ur Butalbital Confirm Salicylates Opiates Screen Urine Opiates Screen Meperidine Urine Normeperidine U Normeperidine GC/MS Urine Codeine U Codeine Confrm GC/MS Urine Morphine Morphine Confirm GC/MS Urine Hydrocodone Ur Hydrocodone (GC/MS) Urine Oxycodone Ur Oxycodone GC/MS Oxymorphone Confirm Urine Oxymorphone U Oxycodone/Oxymorphon Methadone Screen Ur Methadone Ur Methadone Confirm Ur Hydromorphone Ur Hydromorphone (GC/MS) Urine Propoxyphene U Propoxyphene/M GC/MS Acetaminophen Barbiturate Screen Ur Barbiturates Screen Urine Barbiturates Phencyclidine Screen Ur Phencyclidine (PCP) Ur PCP Confirm (GC/MS) Amphetamines Amphetamines Grp GC/MS Ur Amphetamines Screen Urine Amphetamine Ur Amphetamines, Quant Methamphetamine Methamphetamine GC/MS MDMA (Ecstasy) Screen Urine Amobarbital Ur Amobarbital GC/MS Urine Pentobarbital U Pentobarbital GC/MS Urine Phenobarbital U Phenobarbital GC/MS Urine Secobarbital U Secobarbital GC/MS Urine Alprazolam U OH-Alprazolam GC/MS Benzodiazepines Screen U Benzodiazepines Scrn Urine Clonazepam U 7-Amino Clonazep GC/MS Ur Nordiazepam Ur Nordiazepam GC/MS Flurazepam Flurazepam Confirm Lorazepam Urine Lorazepam Ur Oxazepam U Oxazepam Confm GC/MS Urine Temazepam Ur Temazepam (GC/MS) Urine Triazolam Ur Triazolam (GC/MS) Meperidine (GC/MS) Ur Meperidine Cocaine Screen Cocaine & Metabolite Urine Cocaine Benzoylecgonine Cannabinoids Urine Cannabinoids U Marijuana (THC) Screen Urine Marijuana (THC) Urine Ethyl Alcohol CEFERINO Screen Smooth Musc &EXCELLENCE COACH Intrp CMV IgM Ab Hepatitis A IgM Ab Hep A IgM Ab Confirm Hepatitis A Ab Total Hep Bs Antigen Hep Bs Antibody Hep B Core Total Ab Hep B Core IgM Ab Hepatitis C Antibody 08/01/17 08/01/17 08/01/17 06:52 06:52 06:52 WBC 5.7 RBC 3.88 L Hgb 10.9 L Hct 32.9 L MCV 84.9 MCH 28.0 MCHC 33.0 RDW 15.9 Plt Count 174 MPV 8.9 Neutrophils % 61.6 Lymphocytes % 18.7 D Monocytes % 14.0 H Eosinophils % 4.7 H D Basophils % 1.0 PT with INR 17.10 H INR 1.51 H Sodium 139 Potassium 3.4 L Chloride 99 Carbon Dioxide 26 Anion Gap 14 BUN 39 H Creatinine 1.6 H Creat Clearance w eGFR 40.90 POC Glucometer Random Glucose 150 H Specific [place] Calcium 8.7 Phosphorus Magnesium Total Bilirubin 1.0 Direct Bilirubin AST 339 H D ALT 605 H D Alkaline Phosphatase 189 H Creatine Kinase Creatine Kinase Index CK-MB (CK-2) Troponin I B-Natriuretic Peptide Total Protein 6.4 Albumin 3.0 L Urine Color Urine Appearance Urine pH Ur Specific [place] Urine Protein Urine Glucose (UA) Urine Ketones Urine Blood Urine Nitrite Urine Bilirubin Urine Urobilinogen Ur Leukocyte Esterase Ur Random Sodium Ur Random Potassium Ur Random Chloride Ur Random Urea Nitrogn Urine Creatinine Urine Butalbital Ur Butalbital Confirm Salicylates Opiates Screen Urine Opiates Screen Meperidine Urine Normeperidine U Normeperidine GC/MS Urine Codeine U Codeine Confrm GC/MS Urine Morphine Morphine Confirm GC/MS Urine Hydrocodone Ur Hydrocodone (GC/MS) Urine Oxycodone Ur Oxycodone GC/MS Oxymorphone Confirm Urine Oxymorphone U Oxycodone/Oxymorphon Methadone Screen Ur Methadone Ur Methadone Confirm Ur Hydromorphone Ur Hydromorphone (GC/MS) Urine Propoxyphene U Propoxyphene/M GC/MS Acetaminophen Barbiturate Screen Ur Barbiturates Screen Urine Barbiturates Phencyclidine Screen Ur Phencyclidine (PCP) Ur PCP Confirm (GC/MS) Amphetamines Amphetamines Grp GC/MS Ur Amphetamines Screen Urine Amphetamine Ur Amphetamines, Quant Methamphetamine Methamphetamine GC/MS MDMA (Ecstasy) Screen Urine Amobarbital Ur Amobarbital GC/MS Urine Pentobarbital U Pentobarbital GC/MS Urine Phenobarbital U Phenobarbital GC/MS Urine Secobarbital U Secobarbital GC/MS Urine Alprazolam U [place]-Alprazolam GC/MS Benzodiazepines Screen U Benzodiazepines Scrn Urine Clonazepam U 7-Amino Clonazep GC/MS Ur Nordiazepam Ur Nordiazepam GC/MS Flurazepam Flurazepam Confirm Lorazepam Urine Lorazepam Ur Oxazepam U Oxazepam Confm GC/MS Urine Temazepam Ur Temazepam (GC/MS) Urine Triazolam Ur Triazolam (GC/MS) Meperidine (GC/MS) Ur Meperidine Cocaine Screen Cocaine & Metabolite Urine Cocaine Benzoylecgonine Cannabinoids Urine Cannabinoids U Marijuana (THC) Screen Urine Marijuana (THC) Urine Ethyl Alcohol CEFERINO Screen Smooth Musc &EXCELLENCE COACH Intrp CMV IgM Ab Hepatitis A IgM Ab Hep A IgM Ab Confirm Hepatitis A Ab Total Hep Bs Antigen Hep Bs Antibody Hep B Core Total Ab Hep B Core IgM Ab Hepatitis C Antibody 08/01/17 08/01/17 08/01/17 08:30 08:30 08:30 WBC RBC Hgb Hct MCV MCH MCHC RDW Plt Count MPV Neutrophils % Lymphocytes % Monocytes % Eosinophils % Basophils % PT with INR INR Sodium Potassium Chloride Carbon Dioxide Anion Gap BUN Creatinine Cancelled Creat Clearance w eGFR POC Glucometer Random Glucose Specific [place] Cancelled Calcium Phosphorus Magnesium Total Bilirubin Direct Bilirubin AST ALT Alkaline Phosphatase Creatine Kinase Creatine Kinase Index CK-MB (CK-2) Troponin I B-Natriuretic Peptide Total Protein Albumin Urine Color Straw Urine Appearance Clear Urine pH 6.0 Ur Specific [place] 1.008 Urine Protein Negative Urine Glucose (UA) Negative Urine Ketones Negative Urine Blood Negative Urine Nitrite Negative Urine Bilirubin Negative Urine Urobilinogen 2.0 Ur Leukocyte Esterase Negative Ur Random Sodium 115 Ur Random Potassium 13.0 Ur Random Chloride 116 Ur Random Urea Nitrogn Urine Creatinine 18.9 L Urine Butalbital Cancelled Ur Butalbital Confirm Cancelled Salicylates Opiates Screen Urine Opiates Screen Cancelled Meperidine Cancelled Urine Normeperidine Cancelled U Normeperidine GC/MS Cancelled Urine Codeine Cancelled U Codeine Confrm GC/MS Cancelled Urine Morphine Cancelled Morphine Confirm GC/MS Cancelled Urine Hydrocodone Cancelled Ur Hydrocodone (GC/MS) Cancelled Urine Oxycodone Cancelled Ur Oxycodone GC/MS Cancelled Oxymorphone Confirm Cancelled Urine Oxymorphone Cancelled U Oxycodone/Oxymorphon Cancelled Methadone Screen Ur Methadone Cancelled Ur Methadone Confirm Cancelled Ur Hydromorphone Cancelled Ur Hydromorphone (GC/MS) Cancelled Urine Propoxyphene Cancelled U Propoxyphene/M GC/MS Cancelled Acetaminophen Barbiturate Screen Ur Barbiturates Screen Cancelled Urine Barbiturates Cancelled Phencyclidine Screen Ur Phencyclidine (PCP) Cancelled Ur PCP Confirm (GC/MS) Cancelled Amphetamines Cancelled Amphetamines Grp GC/MS Cancelled Ur Amphetamines Screen Urine Amphetamine Cancelled Ur Amphetamines, Quant Cancelled Methamphetamine Cancelled Methamphetamine GC/MS Cancelled MDMA (Ecstasy) Screen Urine Amobarbital Cancelled Ur Amobarbital GC/MS Cancelled Urine Pentobarbital Cancelled U Pentobarbital GC/MS Cancelled Urine Phenobarbital Cancelled U Phenobarbital GC/MS Cancelled Urine Secobarbital Cancelled U Secobarbital GC/MS Cancelled Urine Alprazolam Cancelled U OH-Alprazolam GC/MS Cancelled Benzodiazepines Screen U Benzodiazepines Scrn Cancelled Urine Clonazepam Cancelled U 7-Amino Clonazep GC/MS Cancelled Ur Nordiazepam Cancelled Ur Nordiazepam GC/MS Cancelled Flurazepam Cancelled Flurazepam Confirm Cancelled Lorazepam Cancelled Urine Lorazepam Cancelled Ur Oxazepam Cancelled U Oxazepam Confm GC/MS Cancelled Urine Temazepam Cancelled Ur Temazepam (GC/MS) Cancelled Urine Triazolam Cancelled Ur Triazolam (GC/MS) Cancelled Meperidine (GC/MS) Cancelled Ur Meperidine Cancelled Cocaine Screen Cocaine & Metabolite Cancelled Urine Cocaine Cancelled Benzoylecgonine Cancelled Cannabinoids Cancelled Urine Cannabinoids Cancelled U Marijuana (THC) Screen Urine Marijuana (THC) Cancelled Urine Ethyl Alcohol Cancelled CEFERINO Screen Smooth Musc &EXCELLENCE COACH Intrp CMV IgM Ab Hepatitis A IgM Ab Hep A IgM Ab Confirm Hepatitis A Ab Total Hep Bs Antigen Hep Bs Antibody Hep B Core Total Ab Hep B Core IgM Ab Hepatitis C Antibody 08/01/17 08/01/17 08/01/17 08:30 08:30 11:41 WBC RBC Hgb Hct MCV MCH MCHC RDW Plt Count MPV Neutrophils % Lymphocytes % Monocytes % Eosinophils % Basophils % PT with INR INR Sodium Potassium Chloride Carbon Dioxide Anion Gap BUN Creatinine Creat Clearance w eGFR POC Glucometer 280 Random Glucose Specific [place] Calcium Phosphorus Magnesium Total Bilirubin Direct Bilirubin AST ALT Alkaline Phosphatase Creatine Kinase Creatine Kinase Index CK-MB (CK-2) Troponin I B-Natriuretic Peptide Total Protein Albumin Urine Color Urine Appearance Urine pH Ur Specific [place] Urine Protein Urine Glucose (UA) Urine Ketones Urine Blood Urine Nitrite Urine Bilirubin Urine Urobilinogen Ur Leukocyte Esterase Ur Random Sodium Ur Random Potassium Ur Random Chloride Ur Random Urea Nitrogn 249 Urine Creatinine Cancelled Urine Butalbital Ur Butalbital Confirm Salicylates Opiates Screen Urine Opiates Screen Meperidine Urine Normeperidine U Normeperidine GC/MS Urine Codeine U Codeine Confrm GC/MS Urine Morphine Morphine Confirm GC/MS Urine Hydrocodone Ur Hydrocodone (GC/MS) Urine Oxycodone Ur Oxycodone GC/MS Oxymorphone Confirm Urine Oxymorphone U Oxycodone/Oxymorphon Methadone Screen Ur Methadone Ur Methadone Confirm Ur Hydromorphone Ur Hydromorphone (GC/MS) Urine Propoxyphene U Propoxyphene/M GC/MS Acetaminophen Barbiturate Screen Ur Barbiturates Screen Urine Barbiturates Phencyclidine Screen Ur Phencyclidine (PCP) Ur PCP Confirm (GC/MS) Amphetamines Amphetamines Grp GC/MS Ur Amphetamines Screen Urine Amphetamine Ur Amphetamines, Quant Methamphetamine Methamphetamine GC/MS MDMA (Ecstasy) Screen Urine Amobarbital Ur Amobarbital GC/MS Urine Pentobarbital U Pentobarbital GC/MS Urine Phenobarbital U Phenobarbital GC/MS Urine Secobarbital U Secobarbital GC/MS Urine Alprazolam U OH-Alprazolam GC/MS Benzodiazepines Screen U Benzodiazepines Scrn Urine Clonazepam U 7-Amino Clonazep GC/MS Ur Nordiazepam Ur Nordiazepam GC/MS Flurazepam Flurazepam Confirm Lorazepam Urine Lorazepam Ur Oxazepam U Oxazepam Confm GC/MS Urine Temazepam Ur Temazepam (GC/MS) Urine Triazolam Ur Triazolam (GC/MS) Meperidine (GC/MS) Ur Meperidine Cocaine Screen Cocaine & Metabolite Urine Cocaine Benzoylecgonine Cannabinoids Urine Cannabinoids U Marijuana (THC) Screen Urine Marijuana (THC) Urine Ethyl Alcohol CEFERINO Screen Smooth Musc &EXCELLENCE COACH Intrp CMV IgM Ab Hepatitis A IgM Ab Hep A IgM Ab Confirm Hepatitis A Ab Total Hep Bs Antigen Hep Bs Antibody Hep B Core Total Ab Hep B Core IgM Ab Hepatitis C Antibody 08/01/17 08/01/17 08/01/17 13:00 16:25 21:22 WBC RBC Hgb Hct MCV MCH MCHC RDW Plt Count MPV Neutrophils % Lymphocytes % Monocytes % Eosinophils % Basophils % PT with INR INR Sodium Potassium Chloride Carbon Dioxide Anion Gap BUN Creatinine Creat Clearance w eGFR POC Glucometer 231 204 Random Glucose Specific [place] Calcium Phosphorus Magnesium Total Bilirubin Direct Bilirubin AST ALT Alkaline Phosphatase Creatine Kinase Creatine Kinase Index CK-MB (CK-2) Troponin I B-Natriuretic Peptide Total Protein Albumin Urine Color Urine Appearance Urine pH Ur Specific [place] Urine Protein Urine Glucose (UA) Urine Ketones Urine Blood Urine Nitrite Urine Bilirubin Urine Urobilinogen Ur Leukocyte Esterase Ur Random Sodium Ur Random Potassium Ur Random Chloride Ur Random Urea Nitrogn Urine Creatinine Urine Butalbital Ur Butalbital Confirm Salicylates Opiates Screen Negative Urine Opiates Screen Meperidine Urine Normeperidine U Normeperidine GC/MS Urine Codeine U Codeine Confrm GC/MS Urine Morphine Morphine Confirm GC/MS Urine Hydrocodone Ur Hydrocodone (GC/MS) Urine Oxycodone Ur Oxycodone GC/MS Oxymorphone Confirm Urine Oxymorphone U Oxycodone/Oxymorphon Methadone Screen Negative Ur Methadone Ur Methadone Confirm Ur Hydromorphone Ur Hydromorphone (GC/MS) Urine Propoxyphene U Propoxyphene/M GC/MS Acetaminophen Barbiturate Screen Negative Ur Barbiturates Screen Urine Barbiturates Phencyclidine Screen Negative Ur Phencyclidine (PCP) Ur PCP Confirm (GC/MS) Amphetamines Amphetamines Grp GC/MS Ur Amphetamines Screen Negative Urine Amphetamine Ur Amphetamines, Quant Methamphetamine Methamphetamine GC/MS MDMA (Ecstasy) Screen Negative Urine Amobarbital Ur Amobarbital GC/MS Urine Pentobarbital U Pentobarbital GC/MS Urine Phenobarbital U Phenobarbital GC/MS Urine Secobarbital U Secobarbital GC/MS Urine Alprazolam U OH-Alprazolam GC/MS Benzodiazepines Screen Negative U Benzodiazepines Scrn Urine Clonazepam U 7-Amino Clonazep GC/MS Ur Nordiazepam Ur Nordiazepam GC/MS Flurazepam Flurazepam Confirm Lorazepam Urine Lorazepam Ur Oxazepam U Oxazepam Confm GC/MS Urine Temazepam Ur Temazepam (GC/MS) Urine Triazolam Ur Triazolam (GC/MS) Meperidine (GC/MS) Ur Meperidine Cocaine Screen Negative Cocaine & Metabolite Urine Cocaine Benzoylecgonine Cannabinoids Urine Cannabinoids U Marijuana (THC) Screen Negative Urine Marijuana (THC) Urine Ethyl Alcohol CEFERINO Screen Smooth Musc &EXCELLENCE COACH Intrp CMV IgM Ab Hepatitis A IgM Ab Hep A IgM Ab Confirm Hepatitis A Ab Total Hep Bs Antigen Hep Bs Antibody Hep B Core Total Ab Hep B Core IgM Ab Hepatitis C Antibody 08/02/17 08/02/17 08/02/17 05:43 06:30 06:30 WBC 5.5 RBC 3.92 L Hgb 11.0 L Hct 33.4 L MCV 85.2 MCH 28.0 MCHC 32.9 RDW 16.2 H Plt Count 184 MPV 8.8 Neutrophils % 57.7 Lymphocytes % 18.2 Monocytes % 16.5 H Eosinophils % 6.8 H Basophils % 0.8 PT with INR INR Sodium 139 Potassium 3.5 Chloride 102 Carbon Dioxide 27 Anion Gap 10 BUN 42 H Creatinine 1.7 H Creat Clearance w eGFR 38.14 POC Glucometer 178 Random Glucose 169 H Specific [place] Calcium 8.3 L Phosphorus Magnesium 1.8 Total Bilirubin 1.2 H Direct Bilirubin AST 177 H D ALT 480 H D Alkaline Phosphatase 172 H Creatine Kinase Creatine Kinase Index CK-MB (CK-2) Troponin I B-Natriuretic Peptide Total Protein 6.3 L Albumin 3.2 L Urine Color Urine Appearance Urine pH Ur Specific [place] Urine Protein Urine Glucose (UA) Urine Ketones Urine Blood Urine Nitrite Urine Bilirubin Urine Urobilinogen Ur Leukocyte Esterase Ur Random Sodium Ur Random Potassium Ur Random Chloride Ur Random Urea Nitrogn Urine Creatinine Urine Butalbital Ur Butalbital Confirm Salicylates Opiates Screen Urine Opiates Screen Meperidine Urine Normeperidine U Normeperidine GC/MS Urine Codeine U Codeine Confrm GC/MS Urine Morphine Morphine Confirm GC/MS Urine Hydrocodone Ur Hydrocodone (GC/MS) Urine Oxycodone Ur Oxycodone GC/MS Oxymorphone Confirm Urine Oxymorphone U Oxycodone/Oxymorphon Methadone Screen Ur Methadone Ur Methadone Confirm Ur Hydromorphone Ur Hydromorphone (GC/MS) Urine Propoxyphene U Propoxyphene/M GC/MS Acetaminophen Barbiturate Screen Ur Barbiturates Screen Urine Barbiturates Phencyclidine Screen Ur Phencyclidine (PCP) Ur PCP Confirm (GC/MS) Amphetamines Amphetamines Grp GC/MS Ur Amphetamines Screen Urine Amphetamine Ur Amphetamines, Quant Methamphetamine Methamphetamine GC/MS MDMA (Ecstasy) Screen Urine Amobarbital Ur Amobarbital GC/MS Urine Pentobarbital U Pentobarbital GC/MS Urine Phenobarbital U Phenobarbital GC/MS Urine Secobarbital U Secobarbital GC/MS Urine Alprazolam U OH-Alprazolam GC/MS Benzodiazepines Screen U Benzodiazepines Scrn Urine Clonazepam U 7-Amino Clonazep GC/MS Ur Nordiazepam Ur Nordiazepam GC/MS Flurazepam Flurazepam Confirm Lorazepam Urine Lorazepam Ur Oxazepam U Oxazepam Confm GC/MS Urine Temazepam Ur Temazepam (GC/MS) Urine Triazolam Ur Triazolam (GC/MS) Meperidine (GC/MS) Ur Meperidine Cocaine Screen Cocaine & Metabolite Urine Cocaine Benzoylecgonine Cannabinoids Urine Cannabinoids U Marijuana (THC) Screen Urine Marijuana (THC) Urine Ethyl Alcohol CEFERINO Screen Smooth Musc &EXCELLENCE COACH Intrp CMV IgM Ab Hepatitis A IgM Ab Hep A IgM Ab Confirm Hepatitis A Ab Total Hep Bs Antigen Hep Bs Antibody Hep B Core Total Ab Hep B Core IgM Ab Hepatitis C Antibody 08/02/17 11:31 WBC RBC Hgb Hct MCV MCH MCHC RDW Plt Count MPV Neutrophils % Lymphocytes % Monocytes % Eosinophils % Basophils % PT with INR INR Sodium Potassium Chloride Carbon Dioxide Anion Gap BUN Creatinine Creat Clearance w eGFR POC Glucometer 370 Random Glucose Specific [place] Calcium Phosphorus Magnesium Total Bilirubin Direct Bilirubin AST ALT Alkaline Phosphatase Creatine Kinase Creatine Kinase Index CK-MB (CK-2) Troponin I B-Natriuretic Peptide Total Protein Albumin Urine Color Urine Appearance Urine pH Ur Specific [place] Urine Protein Urine Glucose (UA) Urine Ketones Urine Blood Urine Nitrite Urine Bilirubin Urine Urobilinogen Ur Leukocyte Esterase Ur Random Sodium Ur Random Potassium Ur Random Chloride Ur Random Urea Nitrogn Urine Creatinine Urine Butalbital Ur Butalbital Confirm Salicylates Opiates Screen Urine Opiates Screen Meperidine Urine Normeperidine U Normeperidine GC/MS Urine Codeine U Codeine Confrm GC/MS Urine Morphine Morphine Confirm GC/MS Urine Hydrocodone Ur Hydrocodone (GC/MS) Urine Oxycodone Ur Oxycodone GC/MS Oxymorphone Confirm Urine Oxymorphone U Oxycodone/Oxymorphon Methadone Screen Ur Methadone Ur Methadone Confirm Ur Hydromorphone Ur Hydromorphone (GC/MS) Urine Propoxyphene U Propoxyphene/M GC/MS Acetaminophen Barbiturate Screen Ur Barbiturates Screen Urine Barbiturates Phencyclidine Screen Ur Phencyclidine (PCP) Ur PCP Confirm (GC/MS) Amphetamines Amphetamines Grp GC/MS Ur Amphetamines Screen Urine Amphetamine Ur Amphetamines, Quant Methamphetamine Methamphetamine GC/MS MDMA (Ecstasy) Screen Urine Amobarbital Ur Amobarbital GC/MS Urine Pentobarbital U Pentobarbital GC/MS Urine Phenobarbital U Phenobarbital GC/MS Urine Secobarbital U Secobarbital GC/MS Urine Alprazolam U OH-Alprazolam GC/MS Benzodiazepines Screen U Benzodiazepines Scrn Urine Clonazepam U 7-Amino Clonazep GC/MS Ur Nordiazepam Ur Nordiazepam GC/MS Flurazepam Flurazepam Confirm Lorazepam Urine Lorazepam Ur Oxazepam U Oxazepam Confm GC/MS Urine Temazepam Ur Temazepam (GC/MS) Urine Triazolam Ur Triazolam (GC/MS) Meperidine (GC/MS) Ur Meperidine Cocaine Screen Cocaine & Metabolite Urine Cocaine Benzoylecgonine Cannabinoids Urine Cannabinoids U Marijuana (THC) Screen Urine Marijuana (THC) Urine Ethyl Alcohol CEFERINO Screen Smooth Musc &EXCELLENCE COACH Intrp CMV IgM Ab Hepatitis A IgM Ab Hep A IgM Ab Confirm Hepatitis A Ab Total Hep Bs Antigen Hep Bs Antibody Hep B Core Total Ab Hep B Core IgM Ab Hepatitis C Antibody CT/CHEST CT WITHOUT CONTRAST Indication: Rule out acute lung pathology. TECHNIQUE: Helical images of the chest were obtained without contrast. Motion artifact present. No prior imaging available for comparison. FINDINGS: LUNGS: Motion artifact degrades image quality within the upper lobes. Scarring versus platelike atelectasis noted near the lingula. Atelectasis/scarring present at both bases, more prominent on the right side. No suspicious lung nodules were noted except for motion artifact limitations. No endobronchial lesions are seen. Pleura: Small right-sided pleural effusion is present, trace on the left. No pneumothorax. Mediastinum: Visualized portions of the thyroid gland appear homogeneous. Shotty mediastinal adenopathy is noted measuring up to 8 mm. Within the epicardiac fat on the right side, a 14 mm nodule was seen. CARDIAC: Vascular calcifications noted including coronary. A small amount of fluid is noted within the superior recesses. The heart is borderline size. Others: Liver edge appears irregular which may be a sign of cirrhosis, correlate with lab values. No focal liver masses were seen. No gallstones were identified. The pancreas, adrenals and spleen appear unremarkable. Spondylotic changes are noted of the spine with no aggressive bone lesions seen. IMPRESSION: Small effusion on the right side with atelectasis/scarring at the right base. Adenopathy within the mediastinum and epicardial fat as described above, correlate clinically. Borderline cardiomegaly. Additional comments noted above. US/KIDNEY / RENAL US Abnormal liver function tests. Evaluate for acute renal insufficiency Right upper abdomen and bilateral renal ultrasound. The liver measures 13.5 cm in sagittal length with a moderately dense echotexture. Note is made of a right pleural effusion. Gallbladder is adequately distended without intraluminal stones or thickening of its wall. No intra or extrahepatic bile duct dilatation is seen. The right kidney measures 10.8 cm in sagittal length and appears unremarkable. Venous flow was visualized in the hilum on the color Doppler images. The left kidney measures 9.2 cm in sagittal length with a small simple cyst in its midportion measuring 1.6 cm. There is another adjacent smaller simple cyst measuring 1.1 cm. Venous flow was visualized in the hilum. Visualized portion of the pancreatic head and body appear unremarkable Visualized portion of the proximal abdominal aorta and inferior vena cava appear unremarkable. Normal flow in the main portal vein. IMPRESSION: Fatty liver versus hepatocellular disease. There are a couple of small left renal simple cysts. Both kidneys appear otherwise unremarkable. Right pleural effusion. Echo: LVEF of 35-40%. diastolic dysfunction, grade 2. moderate MR, TR, aortic sclerosis, AR. PA pressure of 32. HOSPITAL COURSE: Date of Admission:07/30/17 Date of Discharge: 08/02/17 87M w/ hx of diastolic CHF, HTN, NIDDM, and HLD who presented with acute SOB and was admitted for acute CHF exacerbation possibly triggered by viral URI. Pt treated with IV lasix and supplemental O2. Pt had 13 lb weight loss since admission. Pt encouraged to weigh himself daily, and if he notices >2-3 lb weight gain to notify reweaver of change and may require to take extra of water pill. Pt developed elevated LFTs, thought to be likely 2/2 congestive hepatopathy from CHF w/ underlying hepatic disease. US abdomen showed fatty liver vs. hepatocellular disease and CT chest showed irregular liver edge, possibly 2/2 cirrhosis. GI was consulted and worked up the patient, most of which was negative, some of which is still pending. Pt may require Bx in the future as outpatient to further characterize, statin held. Pt developed acute on chronic kidney injury for which nephrology was consulted. On day of discharge, pt has no subjective complaints, a normal physical exam, normal vitals, normal labs, and is stable for discharge. Pt instructed to f/u with PCP, cardiology (pt is scheduled next week for possible stress test), GI, and nephrology. Pt told to stop nortriptyline and lyrica due to hepatotoxicity, and to start lasix 20mg daily. -Mason Vera MD PGY1 . Minutes to complete discharge: 36 Discharge Summary Reason For Visit: CHF HYPERVOLEMIA Condition: Stable - Instructions Diet, Activity, Other Instructions: You presented with shortness of breath and were found to have a heart failure exacerbation. You were treated with IV lasix and supplemental oxygen. You were also found to have elevated liver function tests. Imaging of your liver shows some underlying liver disease. While in the hospital, you were seen by GI, nephrology, and cardiology. Weigh yourself daily. Notify your reweaver if you gain more than 2-3 lbs in 1 day. You may be advised to take more of your water pill. Medications: Continue taking all medications as before except: 1. Stop taking nortiptyline and lyrica as they can be harmful to your liver. 2. You have been started on water pill (furosemide) which is 20mg by mouth once a day. Follow-ups: 1. Please visit your PCP within one week. 2. Please visit cardiology, Dr. Rasmussen in one week. You will need to have a stress test. 3. Please visit GI, Dr. Krause, in one week. 4. Please visit nephrology, Dr. Smith in two weeks. If you develop any chest pain, shortness of breath, or any other concerning symptoms, please return to the ED. You need to check your weight daily and if there is a >3lbs increase please contact Dr. Rasmussen immediately. [place] translation: Usted present dificultad para respirar y se encontr que leopoldo patrizia exacerbaci n de insuficiencia cardaca. Usted fue tratado con IV Lasix y oxgeno suplementario. Tambin se encontr que leopoldo pruebas de funcin heptica elevadas. Las imgenes de stephens hgado muestran alguna enfermedad heptica subyacente. Mientras estuvo en el hospital, fue atendido por gastroenterologa, nefrologa y cardiologa. Medicamentos: Contine tomando todos los medicamentos ladi antes, excepto: 1. Deje de ella nortiptyline y lyrica, ya que pueden ser perjudiciales para stephens hgado. 2. Goodson comenzado con un medicamento de agua (furosemida) que es de 20 mg por va oral patrizia vez al da. Seguimientos: 1. Visite a stephens PCP dentro de patrizia semana. 2. Visite Cardiologo, Dr. Rasmussen en patrizia semana. 3. Visite Gastroenterologo, Dr. Krause, en patrizia semana. 4. Visite nefrologo, Dr. Smith en dos semanas. Si desarrolla cualquier dolor en el pecho, dificultad para respirar o cualquier otro sntoma preocupante, regrese al DE. Debe controlar stephens peso diariamente y si hay un aumento de> 3 libras, pngase en contacto con el Dr. Rasmussen inmediatamente. Referrals: Pj Krause MD [Staff Physician] - 2 Weeks (Liver function test ) Kailash Rasmussen MD [Staff Physician] - 1 Week (will need outpatient stress testing.) Kayla Rothman MD [Primary Care Provider] - 1 Week Aimee Smith MD [Staff Physician] - 2 Weeks Disposition: HOME - Home Medications Comprehensive Discharge Medication List: Ambulatory Orders Glipizide/Metformin HCl [Glipizide-Metformin 5-500 mg] 2 each PO BIDAC 09/06/15 Omeprazole [Prilosec] 40 mg PO DAILY 09/06/15 Sitagliptin Phosphate [Januvia] 100 mg PO AM 09/06/15 Chlorthalidone 50 mg PO DAILY 07/29/17 Donepezil HCl [Aricept] 10 mg PO DAILY 07/29/17 Carvedilol [Coreg -] 6.25 mg PO BID #60 tablet 08/01/17 Furosemide [Lasix] 20 mg PO DAILY #30 tablet 08/02/17 Insulin (Levemir) [Levemir Flexpen -] 20 units SQ HS 08/04/17 Losartan Potassium 50 mg PO DAILY 08/04/17 This patient is new to me today: No Emergency Visit: Yes ED Registration Date: 07/30/17 Care time: The patient presented to the Emergency Department on the above date and was hospitalized for further evaluation of their emergent condition. Critical Care patient: No - Discharge Referral Referred to [facility] No
== END 2017-08-02 13:23 | disposition home or self-care (01) | DRG 291 ==
LOC: JER 17:22 → JERBED 21:04 → J6S 23:59 → OBSVTOIN 07-30 10:00 → J4S 07-30 12:31
PROVIDERS: ADMIT Internal Medicine; ATTEND Internal Medicine
DX: I13.0 Hypertensive heart and chronic kidney disease with heart failure and stage 1 through stage 4 chronic kidney disease, or unspecified chronic kidney disease (principal); I50.43 Acute on chronic combined systolic (congestive) and diastolic (congestive) heart failure; N17.9 Acute kidney failure, unspecified; Z87.891 Personal history of nicotine dependence; Z79.84 Long term (current) use of oral hypoglycemic drugs; E11.22 Type 2 diabetes mellitus with diabetic chronic kidney disease; N18.9 Chronic kidney disease, unspecified; D64.9 Anemia, unspecified; F03.90 Unspecified dementia, unspecified severity, without behavioral disturbance, psychotic disturbance, mood disturbance, and anxiety; E78.5 Hyperlipidemia, unspecified; M54.9 Dorsalgia, unspecified; I35.1 Nonrheumatic aortic (valve) insufficiency; E88.81 Metabolic syndrome and other insulin resistance; K21.9 Gastro-esophageal reflux disease without esophagitis; J06.9 Acute upper respiratory infection, unspecified; R94.5 Abnormal results of liver function studies; E87.6 Hypokalemia; K74.60 Unspecified cirrhosis of liver
CPT/HCPCS: 36415; 71046-TC-FY; 71250-TC; 76705-TC; 76775-TC; 76856-TC; 80048; 80053; 80074; 80076; 80307; 81003; 82436; 82550; 82553; 82570; 82962; 83516; 83735; 83880; 84100; 84133; 84300; 84484; 84540; 85025; 85610; 86038; 86645; 86704; 86706; 86708; 87340; 93005; 93010; 93306-TC; 94761; 97116-GP; 97161-GP; 99282-25; G0378; J1644

== ENCOUNTER 2017-08-04 12:41 | Emergency (ER) | payer OTHER ==
[2017-08-04 12:58] VITALS: TEMP 97.8; BMI 29.2
--- NOTE | 2017-08-04 13:00 | PDOC ---
History of Present Illness - General Chief Complaint: Congestive Heart Failure Stated Complaint: HEADACHE Time Seen by Provider: 08/04/17 12:59 - History of Present Illness Initial Comments: 08/04/17 15:08 The patient is an 87 year old male with a history of HTN, HLD, DM, CHF who presents for evaluation of headache, SOB, and generalized weakness. The patient is accompanied by his family who assist in providing the history. The patient was just discharged from the hospital 2 days ago when he was admitted for a CHF exacerbation and fluid overload. The patient reports feeling improved on discharge, however over the past day and a half, he reports worsening SOB, headache and generalized weakness prompting his presentation to the ED for evaluation. He otherwise denies fevers, chills, chest pain, nausea, vomiting, abdominal pain, or changes with urination or bowel movements. Past History - Past Medical History Allergies/Adverse Reactions: Allergies Allergy/AdvReac Type Severity Reaction Status Date / Time No Known Allergies Allergy Verified 08/04/17 12:56 Home Medications: Ambulatory Orders Glipizide/Metformin HCl [Glipizide-Metformin 5-500 mg] 2 each PO BIDAC 09/06/15 Omeprazole [Prilosec] 40 mg PO DAILY 09/06/15 Sitagliptin Phosphate [Januvia] 100 mg PO AM 09/06/15 Chlorthalidone 50 mg PO DAILY 07/29/17 Donepezil HCl [Aricept] 10 mg PO DAILY 07/29/17 Carvedilol [Coreg -] 6.25 mg PO BID #60 tablet 08/01/17 Furosemide [Lasix] 20 mg PO DAILY #30 tablet 08/02/17 Insulin (Levemir) [Levemir Flexpen -] 20 units SQ HS 08/04/17 Losartan Potassium 50 mg PO DAILY 08/04/17 COPD: No Dementia: Yes Diabetes: Yes GI Disorders: Yes (gerd) HTN: Yes Hypercholesterolemia: Yes - Immunization History Immunization Up to Date: Yes - Suicide/Smoking/Psychosocial Hx Smoking History: Former smoker Have you smoked in the past 12 months: No If you are a former smoker, when did you quit?: over 20 years ago Information on smoking cessation initiated: No Hx Alcohol Use: No Drug/Substance Use Hx: No Substance Use Type: None Hx Substance Use Treatment: No Review of Systems - Review of Systems Comments:: 08/04/17 15:28 Constitutional: Fatigue. No fevers, chills, malaise HEENT: No Rhinorrhea, nasal congestion, visual changes Cardiovascular: No chest pain, syncope, palpitations, lightheadedness Respiratory: SOB. No Cough, Hemoptysis, Gastrointestinal: No Abdominal pain, Nausea, Vomiting, Constipation, Diarrhea, Melena Genitourinary: No Dysuria, Frequency, Urgency, Hesitancy, Hematuria, Flank pain Musculoskeletal: Lower extremity swelling. No Myalgia, arthralgia Skin: No rashes, itching, bruising, pallor Neurologic: Headache. No Dizziness, Numbness, Weakness, or Tingling Psychiatric: No Hallucinations. No SI or HI *Physical Exam - Vital Signs Last Vital Signs Temp Pulse Resp BP Pulse Ox 97.8 F 100 H 22 162/89 100 08/04/17 12:56 08/04/17 12:56 08/04/17 12:56 08/04/17 12:56 08/04/17 12:56 - Physical Exam Comments: 08/04/17 15:29 General Appearance: Nourished. No Apparent Distress HEENT: EOMI, LAUREN. No Pharyngeal Erythema, Tonsillar Exudate, Tonsillar Erythema Neck: No Cervical Lymphadenopathy Respiratory/Chest: Normal Breath Sounds. Bibasilar rales on exam. No Rhonchi, Wheezing Cardiovascular: Regular Rhythm, Regular Rate. No Murmur, Gallops, Rubs Gastrointestinal/Abdominal: Normal Bowel Sounds, Soft. No Guarding, Rebound, Tenderness Musculoskeletal: No CVA Tenderness Extremity: 2+ pitting edema in the lower extremities bilaterally. Normal Capillary Refill Integumentary: Normal Color, Dry, Warm Neurologic: biomedical engineering technician II-XII NML intact, Fully Oriented, Alert, Normal Mood/Affect, Normal Response, Motor Strength 5/5. Heart Score/ECG Review #1 ECG reviewed & interpreted by me at: 15:32 General ECG Interpretation: Sinus Rhythm, Normal Rate, Normal Intervals, No acute ischemic changes ED Treatment Course - LABORATORY CBC & Chemistry Diagram: 08/04/17 13:20 08/04/17 13:20 Medical Decision Making - Medical Decision Making 08/04/17 15:33 The patient is an 87 year old male with a history of HTN, HLD, DM, CHF who presents for evaluation of headache, SOB, and generalized weakness. Differential includes but is not limited to: CHF exacerbation, Pneumonia, Infectious, Metabolic derangement. Given the patient's recent admission for CHF , history and physical exam, it is likely the patient's current symptoms are due to a CHF exacerbation. We will obtain a cbc, cmp, troponin, bnp, ekg, chest plain film to evaluate further. We will continue to monitor and reassess. 08/04/17 16:54 CBC, cmp, troponin [place] [address] but does not clinically correlate. Chest plain film is unremarkable as read by our radiologist. The patient reports significant improvement in his symptoms after being treated with iv tylenol and lasix. The patient's physical exam and bibasilar rales have improved. We are comfortable discharging the patient home at this time with primary care provider follow up. We discussed the results and return precautions with the patient and his family who voiced understanding and is agreeable with the plan. *DC/Admit/Observation/Transfer Diagnosis at time of Disposition: CHF (congestive heart failure) Qualifiers: Heart failure type: unspecified Heart failure chronicity: unspecified Qualified Code(s): I50.9 - Heart failure, unspecified - Discharge Dispostion Disposition: HOME Condition at time of disposition: Good Admit: No - Referrals Referrals: Kayla Rothman MD [Primary Care Provider] - - Patient Instructions Printed Discharge Instructions: DI for Heart Failure Additional Instructions: Please return to the ER if you experience concerning or worsening symptoms including worsening fevers, difficulty breathing, chest pain, or vomiting. Your lab results were improved today and your chest x-ray was normal. Your symptoms are likely due to fluid overload and you should continue your home Lasix. Please also avoid high salt foods as well. It is extremely important that you call to schedule a follow up with your primary care provider within 2- 3 days to discuss further management of your symptoms. - Post Discharge Activity
[2017-08-04 13:40] LABS: BASO % 0.9 % (0-2.0); EOS % 5.1 % (0-4.5); HEMATOCRIT 37.1 % (35.4-49); HEMOGLOBIN 11.9 GM/dL (11.7-16.9); LYMPH % 18.3 % (8-40); MCH 27.8 pg (25.7-33.7); MCHC 32.2 g/dl (32.0-35.9); MEAN CELL VOLUME 86.3 fl (80-96); MEAN PLT VOLUME 8.5 fl (7.5-11.1); MONO % 12.4 % (3.8-10.2); NEUT % 63.3 % (42.8-82.8); PLATELET COUNT 221 K/MM3 (134-434); RDW 16.4 % (11.9-15.9); WHITE BLOOD COUNT 7.3 K/mm3 (4.0-10.0)
[2017-08-04 14:02] LABS: ALBUMIN 3.5 g/dl (3.4-5.0); ANION GAP 11 (8-16); BLOOD UREA NITROGEN 23 mg/dL (7-18); CALCIUM 9.2 mg/dL (8.5-10.1); CHLORIDE 104 mmol/L (98-107); CO2 25 mmol/L (21-32); CREATININE 1.3 mg/dL (0.7-1.3); GLUCOSE,RANDOM 168 mg/dL (74-106); POTASSIUM 4.4 mmol/L (3.5-5.1); SGPT/ALT 285 U/L (12-78); SODIUM 140 mmol/L (136-145)
--- NOTE | 2017-08-04 14:03 | EKG ---
Test Reason : Blood Pressure : / mmHG Vent. Rate : 099 BPM Atrial Rate : 099 BPM P-R Int : 176 ms QRS Dur : 118 ms QT Int : 366 ms P-R-T Axes : 078 -41 110 degrees QTc Int : 469 ms SINUS RHYTHM WITH PREMATURE ATRIAL COMPLEXES LEFT AXIS DEVIATION LEFT VENTRICULAR HYPERTROPHY WITH QRS WIDENING AND REPOLARIZATION ABNORMALITY CANNOT RULE OUT SEPTAL INFARCT , AGE UNDETERMINED ABNORMAL ECG WHEN COMPARED WITH ECG OF 29-JUL-2017 18:27, PREMATURE ATRIAL COMPLEXES ARE NOW PRESENT Confirmed by LEE ANN JUAREZ, CHRISTIAN ([id number]) on 08/04/2017 2:03:48 PM Referred By: Confirmed By:CHRISTIAN NANCE MD
[2017-08-04 14:06] LABS: ALK PHOS 176 U/L (45-117); BILIRUBIN,TOTAL 0.9 mg/dL (0.2-1.0); SGOT/AST 50 U/L (15-37); TOT PROT 7.5 g/dl (6.4-8.2)
[2017-08-04] MEDS ORDERED: ACETAMINOPHEN 1000 MG/100 ML VIAL (NON FORMULARY) IVPB ONE (14:24)
[2017-08-04] MEDS ORDERED: ACETAMINOPHEN 325 MG TABLET (FP) ONE (14:32)
[2017-08-04] MEDS ORDERED: FUROSEMIDE 40 MG/4 ML INJECTABLE VIAL IVPUSH ONE (14:55)
--- NOTE | 2017-08-04 15:12 | PDOC ---
Attending Attestation - HPI HPI: 08/04/17 15:31 The patient is an 87 year old male with history of hypertension, hyperlipidemia , diabetes, CHF, recent hospitalization for CHF exacerbation discharged 2 days ago who presents to the ED complaining of worsening SOB over the past 2 days. He also reports associated headache and generalized weakness. No fever or chills. No chest pain. No nausea, vomiting, or abdominal pain. Documentation prepared by Lina Chong, acting as medical accounts receivable specialist for Nadya Allan MD. <Lina Chong - Last Filed: 08/04/17 15:31> - Resident Resident Name: FaithSanket - ED Attending Attestation I have performed the following: I have examined & evaluated the patient, The case was reviewed & discussed with the resident, I agree w/resident's findings & plan, Exceptions are as noted - Physicial Exam PE: GENERAL: Awake, alert, and fully oriented, in no acute distress HEAD: No signs of trauma EYES: PERRLA, EOMI, sclera anicteric, conjunctiva clear ENT: Auricles normal inspection, hearing grossly normal, nares patent, oropharynx clear without exudates. Moist mucosa NECK: Normal ROM, supple, no lymphadenopathy, JVD, or masses LUNGS: Breath sounds equal, clear to auscultation bilaterally. No wheezes, and no crackles HEART: Regular rate and rhythm, normal S1 and S2, no murmurs, rubs or gallops ABDOMEN: Soft, nontender, normoactive bowel sounds. No guarding, no rebound. No masses EXTREMITIES: Normal range of motion, no edema. No clubbing or cyanosis. No cords, erythema, or tenderness NEUROLOGICAL: Cranial nerves II through XII grossly intact. Normal speech, normal gait SKIN: Warm, Dry, normal turgor, no rashes or lesions noted. - Medical Decision Making Pt is not ill-appearing, labs similar to prior. Will diurese in ED and reassess , as he has been eating soups since he went home (suspect he may have too much salt and fluid intake). <Nadya Allan - Last Filed: 08/06/17 10:35>
[2017-08-04] MEDS ORDERED: FUROSEMIDE 40 MG/4 ML INJECTABLE VIAL ONE (15:26)
[2017-08-04 18:38] VITALS: BP 140/75; PULSE 88
== END 2017-08-04 18:38 | disposition home or self-care (01) ==
LOC: JER 12:41
PROC: 3E033NZ Introduction of Analgesics, Hypnotics, Sedatives into Peripheral Vein, Percutaneous Approach (ICD-10-PCS; principal; 2017-08-04)
PROC: 3E033GC Introduction of Other Therapeutic Substance into Peripheral Vein, Percutaneous Approach (ICD-10-PCS; 2017-08-04)
DX: I50.9 Heart failure, unspecified (principal); I10 Essential (primary) hypertension; E11.9 Type 2 diabetes mellitus without complications; Z79.4 Long term (current) use of insulin; Z79.84 Long term (current) use of oral hypoglycemic drugs; E78.00 Pure hypercholesterolemia, unspecified; K21.9 Gastro-esophageal reflux disease without esophagitis; F03.90 Unspecified dementia, unspecified severity, without behavioral disturbance, psychotic disturbance, mood disturbance, and anxiety
CPT/HCPCS: 36415; 71045-TC-FY; 80053; 82550; 83880; 84484; 85025; 93005; 93010; 96374; 96375; 99284-25

== ENCOUNTER 2017-11-17 17:19 | Emergency (ER) | payer OTHER ==
[2017-11-17 17:39] VITALS: BMI 24.7
--- NOTE | 2017-11-17 17:40 | PDOC ---
Rapid Medical Evaluation Time Seen by Provider: 11/17/17 17:35 Medical Evaluation: Allergies Allergy/AdvReac Type Severity Reaction Status Date / Time No Known Allergies Allergy Verified 08/04/17 12:56 11/17/17 17:35 I have performed a brief in-person evaluation of this patient. The patient presents with a chief complaint of: Sent to ED for hyperglycemia, FS > 500 in office today despite 10 units of humulin and oral hydration. Pt c/o urinary freq x several days. H/o IDDM, prostate ca remotely, HTN, HLD PMD Dr Sylvester Pertinent physical exam findings:Unremarkable I have ordered the following:labs The patient will proceed to the ED for further evaluation Discharge Disposition - Diagnosis Hyperglycemia - Referrals - Patient Instructions - Post Discharge Activity
[2017-11-17 18:38] LABS: HEMATOCRIT 39.7 % (35.4-49); MCHC 32.7 g/dl (32.0-35.9); MEAN CELL VOLUME 85.4 fl (80-96); RBC 4.64 M/mm3 (4.00-5.60)
[2017-11-17 19:12] LABS: ALBUMIN 3.3 g/dl (3.4-5.0); ANION GAP 10 (8-16); BILIRUBIN,TOTAL 0.4 mg/dL (0.2-1.0); BLOOD UREA NITROGEN 19 mg/dL (7-18); CHLORIDE 93 mmol/L (98-107); CO2 27 mmol/L (21-32); CREATININE 1.2 mg/dL (0.7-1.3); LIPASE 170 U/L (73-393); SGPT/ALT 16 U/L (12-78); SODIUM 130 mmol/L (136-145); TOT PROT 7.2 g/dl (6.4-8.2)
[2017-11-17 19:13] LABS: ALK PHOS 142 U/L (45-117)
--- NOTE | 2017-11-17 19:23 | PDOC ---
History of Present Illness - General Chief Complaint: Blood Sugar Problem Stated Complaint: SUGAR LEVEL Time Seen by Provider: 11/17/17 17:35 - History of Present Illness Initial Comments: 11/17/17 19:20 87 year old male hx diastolic CHF, HTN, NIDDM, HLD sent by PCP Dr. Sylvester for fingerstick > 500 in the office. In the office, patient received 10U humalin, and his sugar was rechecked after 15 minutes, after which it resulted as even higher. Patient complains of polyuria for several days. His previous A1C was > 14. Denies chest pain, SOB, nausea, vomiting, diarrhea, fevers, or chills. Allergies: none Smoking: former, quit 25 years ago Alcohol: none Drugs: none PCP: Dr. Sylvester A1C: >14 on last PCP visit Past History - Past Medical History Allergies/Adverse Reactions: Allergies Allergy/AdvReac Type Severity Reaction Status Date / Time No Known Allergies Allergy Verified 11/17/17 17:35 Home Medications: Ambulatory Orders Glipizide/Metformin HCl [Glipizide-Metformin 5-500 mg] 2 each PO BIDAC 09/06/15 Omeprazole [Prilosec] 40 mg PO DAILY 09/06/15 Sitagliptin Phosphate [Januvia] 100 mg PO AM 09/06/15 Chlorthalidone 50 mg PO DAILY 07/29/17 Donepezil HCl [Aricept] 10 mg PO DAILY 07/29/17 Carvedilol [Coreg -] 6.25 mg PO BID #60 tablet 08/01/17 Furosemide [Lasix] 20 mg PO DAILY #30 tablet 08/02/17 Insulin (Levemir) [Levemir Flexpen -] 20 units SQ HS 08/04/17 Losartan Potassium 50 mg PO DAILY 08/04/17 COPD: No Dementia: Yes Diabetes: Yes GI Disorders: Yes (gerd) HTN: Yes Hypercholesterolemia: Yes - Immunization History Immunization Up to Date: Yes - Suicide/Smoking/Psychosocial Hx Smoking History: Former smoker Have you smoked in the past 12 months: No If you are a former smoker, when did you quit?: over 20 years ago Information on smoking cessation initiated: No Hx Alcohol Use: No Drug/Substance Use Hx: No Substance Use Type: None Hx Substance Use Treatment: No Review of Systems - Review of Systems Able to Perform ROS?: Yes Is the patient limited Romanian proficient: Yes Constitutional: No: Chills, Fever HEENTM: No: Throat Pain Respiratory: No: Shortness of Breath, Wheezing Cardiac (ROS): No: Chest Pain, Irregular Heart Rate, Chest Tightness ABD/GI: No: Diarrhea, Nausea, Vomiting : No: Dysuria Endocrine: Yes: Increased Urine *Physical Exam - Vital Signs Last Vital Signs Temp Pulse Resp BP Pulse Ox 97.5 F L 82 17 136/55 98 11/17/17 17:36 11/17/17 17:36 11/17/17 17:36 11/17/17 17:36 11/17/17 17:36 - Physical Exam Comments: 11/17/17 19:26 GENERAL: A&Ox3, no acute distress EYES: PERRLA, EOMI ENT: Moist mucus membranes NECK: No JVD LUNGS: CTA, no wheezes HEART: RRR, no murmurs ABDOMEN: Soft, nontender, BS present MUSCULOSKELETAL: No CVA Tenderness EXTREMITIES: 2+ pulses, no edema. NEUROLOGICAL: Cranial nerves II-XII intact. ED Treatment Course - LABORATORY CBC & Chemistry Diagram: 11/17/17 18:31 11/17/17 18:42 - ADDITIONAL ORDERS Additional order review: 11/17/17 18:31 RBC 4.64 MCV 85.4 MCHC 32.7 RDW 16.0 H Neutrophils % No Result Required. Lymphocytes % No Result Required. Medical Decision Making - Medical Decision Making 11/17/17 19:28 87 year old male with a hx of CHF, HTN, NIDDM, HLD presents from PCP for high blood sugar after insulin administration -cbc, cmp, ekg, urine acetone, UA -will give 6U subq insulin and reassess 11/17/17 22:22 -repeat 377, gave 6U IV push -repeat BGM 210 1 hour later -will DC home *DC/Admit/Observation/Transfer Diagnosis at time of Disposition: Hyperglycemia - Discharge Dispostion Disposition: HOME Condition at time of disposition: Stable Decision to Admit order: Yes - Referrals Referrals: Kayla Rothman MD [Primary Care Provider] - 1 week - Patient Instructions Additional Instructions: You were seen in the hospital for high blood sugar. We gave you insulin and your sugar improved. Please continue to take your insulin as prescribed Please continue to measure your sugars frequently Please make an appointment with your primary care physician within 1 week of discharge If you experience nausea, vomiting, chest pain, shortness of breath, fevers, or chills, check your sugar and please return to the emergency room immediately - Post Discharge Activity
[2017-11-17 19:27] LABS: POTASSIUM 4.5 mmol/L (3.5-5.1); SGOT/AST 16 U/L (15-37)
[2017-11-17 19:28] LABS: GLUCOSE,RANDOM 477 mg/dL (74-106)
[2017-11-17] MEDS ORDERED: INSULIN (NOVOLOG) ASPART 100 UNITS/ML 10ML VIAL SQ ONE ×2 (19:29→19:42)
--- NOTE | 2017-11-17 19:38 | PDOC ---
Attending Attestation - Resident Resident Name: CharlieenriqueNed case - ED Attending Attestation I have performed the following: I have examined & evaluated the patient, The case was reviewed & discussed with the resident, I agree w/resident's findings & plan, Exceptions are as noted - HPI HPI: 11/17/17 19:36 87y M hx of chf, htn, NIDDM, HL, frmo dr. mtz office, was sent for hyperglycemia, was noted to be >500, was given 10u insulin at office, and BGM was persistently high so was sent to the ED. pt denies any complaints includes, n/v, abd pain, cp, sob, fever/chills, diarrhea. Pts A1C = 14 as outpatient. vitals normal here on exam card: rrr, no m/r/g chest: cta b/l abd soft notnender HEENT: mmm will obtain blood work to r/o dka will give fluids/insulin if K is normal for control of bg will reassess - Physicial Exam PE: 11/17/17 22:03 see above - Medical Decision Making 11/17/17 20:24 labs reviewed +elevated bgm, no signs of dka will give insulin and will reassess his blood sugar 11/17/17 23:24 bgm much improved will dc with pmd fu return precautions were discussed I discussed the physical exam findings, ancillary test results and final diagnoses with the patient. I answered all of the patient's questions. The patient was satisfied with the care received and felt comfortable with the discharge plan and treatment plan. The patient will call their primary care physician within 24 hours to arrange follow-up and will return to the Emergency Department with any new, persistent or worsening symptoms.
[2017-11-17 19:41] LABS: WHITE BLOOD COUNT 8.3 K/mm3 (4.0-10.0)
[2017-11-17 19:42] LABS: ANISOCYTOSIS 1+
[2017-11-17] MEDS ORDERED: INSULIN (NOVOLOG) ASPART 100 UNITS/ML 10ML VIAL ONE ×2 (19:42→20:52)
[2017-11-17 19:43] LABS: PLATELET ESTIMATE ADEQUATE
[2017-11-17 19:44] LABS: URINE APPEARANCE CLEAR; URINE BILIRUBIN NEGATIVE (<2.0 mg/dL); URINE COLOR STRAW; URINE GLUCOSE (UA) 3+ (NEGATIVE); URINE KETONE NEGATIVE (NEGATIVE); URINE LEUK ESTERASE NEGATIVE (NEGATIVE); URINE NITRITE NEGATIVE (NEGATIVE); URINE PROTEIN NEGATIVE (NEGATIVE); URINE UROBILINOGEN NEGATIVE mg/dL (0.2-1.0)
[2017-11-17] MEDS ORDERED: SODIUM CHLORIDE 500 ML IV STA (20:24)
[2017-11-17] MEDS ORDERED: INSULIN REGULAR HUMAN 100 UNITS/ML *VIAL IVPUSH ONE (20:51)
[2017-11-17 21:41] VITALS: BP 131/74; PULSE 80; TEMP 98
== END 2017-11-17 22:53 | disposition home or self-care (01) ==
LOC: JER 17:19
PROC: 3E0337Z Introduction of Electrolytic and Water Balance Substance into Peripheral Vein, Percutaneous Approach (ICD-10-PCS; principal; 2017-11-17)
PROC: 3E013VG Introduction of Insulin into Subcutaneous Tissue, Percutaneous Approach (ICD-10-PCS; 2017-11-17)
PROC: 3E033VG Introduction of Insulin into Peripheral Vein, Percutaneous Approach (ICD-10-PCS; 2017-11-17)
DX: E11.65 Type 2 diabetes mellitus with hyperglycemia (principal); Z79.4 Long term (current) use of insulin; I10 Essential (primary) hypertension; I50.30 Unspecified diastolic (congestive) heart failure; E78.5 Hyperlipidemia, unspecified; E78.00 Pure hypercholesterolemia, unspecified; K21.9 Gastro-esophageal reflux disease without esophagitis; F03.90 Unspecified dementia, unspecified severity, without behavioral disturbance, psychotic disturbance, mood disturbance, and anxiety
CPT/HCPCS: 36415; 71045-TC-FY; 80053; 81003; 82009; 82962; 83690; 85025; 96361; 96372; 96374; 99282-25